=== PATIENT | male | born 1960 | race Caucasian/White ===

== ENCOUNTER 2017-07-11 08:23 | Observation (INO) | payer MEDICARE, MEDICAID ==
[2017-07-11] MEDS ORDERED: Lactated Ringers 1,000 ML IV SCH (09:30)
--- NOTE | 2017-07-11 09:33 | EDM.PDOC ---
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 Difficult to obtain review of systems secondary to physical impairment - Related Data Allergies Allergy/AdvReac Type Severity Reaction Status Date / Time No Known Allergies Allergy Verified 07/11/17 08:50 Home Meds: Home Meds Baclofen 1 tab PO TID 07/11/17 [History] Gabapentin [Neurontin] 1 cap PO BID 07/11/17 [History] PHENobarbital 6 tab PO BEDTIME 07/11/17 [History] Prednisone [IJD: predniSONE] 1 tab PO DAILY 07/11/17 [History] Propranolol [Inderal LA] 1 tab PO DAILY 07/11/17 [History] Past Medical History HEENT History: Reports: Hard of Hearing Musculoskeletal History: Reports: Other (See Below) Other Musculoskeletal History: muscle spasticity Neurological History: Reports: Other (See Below) (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) Hematologic History: Reports: Other (See Below) Other Hematologic History: mother reports "platelet disoder" - Past Surgical History GI Surgical History: Reports: Cholecystectomy Social & Family History - Tobacco Use Smoking Status *Q: Never Smoker - Recreational Drug Use Recreational Drug Use: No ED ROS GENERAL - Review of Systems Review Of Systems: Unable To Obtain ED EXAM, GENERAL - Physical Exam Exam: See Below Free Text/Narrative:: General: 56-year-old gentleman not in any distress minimally communicative, alert HEENT: head is atraumatic normocephalic, eyes pupils equal round reactive to light, sclera clear no conjunctivitis appreciated. Ears tympanic membranes clear and avila landmarks and light reflex are present bilaterally canals are clear. Nose no septal deviation, nares are clear, no blood present. Mouth mucosa is dry and pink no erythema or exudate noted in soft palate, tongue is midline uvula is midline, dentition is or. Neck: Supple no thyromegaly no tracheal deviation. Nodes: Cervical nodes subclavicular nodes nontender no palpable lymphadenopathy noted. Lungs: clear to auscultation bilaterally with symmetrical respirations, no adventitious noise appreciated. CV: Regular rate and rhythm S1 and S2 appreciated no murmurs rubs or gallops noted. Abdomen: Soft, nontender, no palpable masses or organomegaly appreciated, mild distention no guarding bowel sounds are present, . Neuro: Cranial nerves II through XII grossly intact Skin: Erythematous rash in the groin area consistent with candidiasis Extremities: No lower extremity edema appreciated, pedal pulse is +2. Course - Vital Signs Last Recorded V/S: Last Vital Signs Temp 98.7 F 07/11/17 12:04 Pulse 106 H 07/11/17 12:04 Resp 16 07/11/17 12:04 BP 129/70 07/11/17 12:04 Pulse Ox 89 L 07/11/17 12:04 - Orders/Labs/Meds Orders: Active Orders 24 hr Category Date Time Status Vital Signs [RC] Q1H Care 07/11/17 09:26 Active Vital Signs [RC] Q1H Care 07/11/17 10:41 Active Chest 1V Frontal [CR] Urgent Exams 07/11/17 09:28 Taken Chest Abdomen Pelvis w Cont [CT] Stat Exams 07/11/17 10:52 Taken CULTURE BLOOD [BC] Urgent Lab 07/11/17 09:40 Received CULTURE BLOOD [BC] Urgent Lab 07/11/17 09:50 Received Lactated Ringers [Ringers, Lactated] 1,000 ml Med 07/11/17 09:30 Active IV ASDIRECTED Piperacillin/Tazobactam/Dext [Zosyn in Dextrose Iso- Med 07/11/17 11:00 Active Osmotic] 4.5 gm Premix Bag 1 bag IV Q6H Blood Culture x2 Reflex Set [OM.PC] Urgent Oth 07/11/17 09:26 Ordered Medication Orders Lactated Ringer's (Ringers, Lactated) 1,000 mls @ 999 mls/hr IV ASDIRECTED HERRERA Last Admin: 07/11/17 10:28 Dose: 999 mls/hr Piperacillin/Tazobactam/ (Dextrose 4.5 gm/ Premix) 100 mls @ 200 mls/hr IV Q6H HERRERA Last Admin: 07/11/17 11:14 Dose: 200 mls/hr Labs: Laboratory Tests 07/11/17 07/11/17 07/11/17 Range/Units 09:45 09:45 09:45 WBC 12.6 H (4.5-11.0) K/uL RBC 5.39 (4.30-5.90) M/uL Hgb 17.6 H (12.0-15.0) g/dL Hct 50.2 (40.0-54.0) % MCV 93 (80-98) fL MCH 33 H (27-31) pg MCHC 35 (32-36) % Plt Count 70 L (150-400) K/uL Neut % (Auto) 81 H (36-66) % Lymph % (Auto) 8 L (24-44) % [place] % (Auto) 8 H (2-6) % Eos % (Auto) 3 (2-4) % Baso % (Auto) 1 (0-1) % Sodium 148 (140-148) mmol/L Potassium 4.7 (3.6-5.2) mmol/L Chloride 110 H (100-108) mmol/L Carbon Dioxide 32 (21-32) mmol/L Anion Gap 10.7 (5.0-14.0) mmol/L BUN 15 (7-18) mg/dL Creatinine 0.9 (0.8-1.3) mg/dL Est Cr Clr Drug Dosing 83.69 mL/min Estimated GFR (MDRD) > 60 (>60) Glucose 85 (74-106) mg/dL Lactic Acid 2.5 H (0.4-2.0) mmol/L Calcium 8.5 (8.5-10.1) mg/dL Total Bilirubin 0.4 (0.2-1.0) mg/dL AST 39 H (15-37) U/L ALT 19 (12-78) U/L Alkaline Phosphatase 145 H (46-116) U/L C-Reactive Protein 0.90 H (0.0-0.3) mg/dL Total Protein 7.6 (6.4-8.2) g/dL Albumin 3.4 (3.4-5.0) g/dL Globulin 4.2 H (2.3-3.5) g/dL Albumin/Globulin Ratio 0.8 L (1.2-2.2) Urine Color Urine Appearance Urine pH (4.5-8.0) Ur Specific [place] (1.008-1.030) Urine Protein (NEGATIVE) mg/dL Urine Glucose (UA) (NEGATIVE) mg/dL Urine Ketones (NEGATIVE) mg/dL Urine Occult Blood (NEGATIVE) Urine Nitrite (NEGAITVE) Urine Bilirubin (NEGATIVE) Urine Urobilinogen (NORMAL) mg/dL Ur Leukocyte Esterase (NEGATIVE) Urine RBC (0-5) Urine WBC (0-5) Ur Epithelial Cells Amorphous Sediment Urine Bacteria Urine Mucus 07/11/17 Range/Units 10:43 WBC (4.5-11.0) K/uL RBC (4.30-5.90) M/uL Hgb (12.0-15.0) g/dL Hct (40.0-54.0) % MCV (80-98) fL MCH (27-31) pg MCHC (32-36) % Plt Count (150-400) K/uL Neut % (Auto) (36-66) % Lymph % (Auto) (24-44) % [place] % (Auto) (2-6) % Eos % (Auto) (2-4) % Baso % (Auto) (0-1) % Sodium (140-148) mmol/L Potassium (3.6-5.2) mmol/L Chloride (100-108) mmol/L Carbon Dioxide (21-32) mmol/L Anion Gap (5.0-14.0) mmol/L BUN (7-18) mg/dL Creatinine (0.8-1.3) mg/dL Est Cr Clr Drug Dosing mL/min Estimated GFR (MDRD) (>60) Glucose (74-106) mg/dL Lactic Acid (0.4-2.0) mmol/L Calcium (8.5-10.1) mg/dL Total Bilirubin (0.2-1.0) mg/dL AST (15-37) U/L ALT (12-78) U/L Alkaline Phosphatase (46-116) U/L C-Reactive Protein (0.0-0.3) mg/dL Total Protein (6.4-8.2) g/dL Albumin (3.4-5.0) g/dL Globulin (2.3-3.5) g/dL Albumin/Globulin Ratio (1.2-2.2) Urine Color Yellow Urine Appearance Clear Urine pH 5.0 (4.5-8.0) Ur Specific [place] 1.025 (1.008-1.030) Urine Protein Negative (NEGATIVE) mg/dL Urine Glucose (UA) Normal (NEGATIVE) mg/dL Urine Ketones Negative (NEGATIVE) mg/dL Urine Occult Blood Negative (NEGATIVE) Urine Nitrite Negative (NEGAITVE) Urine Bilirubin Small (NEGATIVE) Urine Urobilinogen 1 (NORMAL) mg/dL Ur Leukocyte Esterase Negative (NEGATIVE) Urine RBC 0-5 (0-5) Urine WBC 0-5 (0-5) Ur Epithelial Cells Few Amorphous Sediment Not seen Urine Bacteria Few Urine Mucus Few Meds: Medications Generic Name Dose Route Start Last Admin Trade Name Freq PRN Reason Stop Dose Admin Lactated Ringer's 1,000 mls @ 999 mls/hr 07/11/17 09:30 07/11/17 10:28 Ringers, Lactated IV 999 mls/hr ASDIRECTED HERRERA Administration Piperacillin/Tazobactam/ 100 mls @ 200 mls/hr 07/11/17 11:00 07/11/17 11:14 Dextrose 4.5 gm/ Premix IV 200 mls/hr Q6H HERRERA Administration Discontinued Medications Generic Name Dose Route Start Last Admin Trade Name Freq PRN Reason Stop Dose Admin Sodium Chloride 70 mls @ 3 mls/sec 07/11/17 11:20 07/11/17 11:52 Normal Saline IV 07/11/17 11:21 3 mls/sec ASDIRECTED ONE Administration Iopamidol 126 ml 07/11/17 11:20 07/11/17 11:51 Isovue-300 (61%) IV 07/11/17 11:21 126 ml . DIRECTED PRN Administration RADIOLOGY EXAM Nystatin 1 gm 07/11/17 10:43 07/11/17 11:03 Nystatin Ointment TOP 07/11/17 10:44 1 dose NOW STA Administration Sodium Chloride 10 ml 07/11/17 11:20 07/11/17 11:52 Saline Flush FLUSH 07/11/17 11:21 10 ml . DIRECTED PRN Administration [id number] EXAM Departure - Departure Time of Disposition: 12:57 Disposition: Admitted As Inpatient 67 Condition: Good Clinical Impression: Dehydration Constipation Qualifiers: Constipation type: slow transit constipation Qualified Code(s): K59.01 - Slow transit constipation - Discharge Information Forms: ED Department Discharge - My Orders Last 24 Hours: My Active Orders 07/11/17 09:26 Vital Signs [RC] Q1H Blood Culture x2 Reflex Set [OM.PC] Urgent 07/11/17 09:28 Chest 1V Frontal [CR] Urgent 07/11/17 09:30 Lactated Ringers [Ringers, Lactated] 1,000 ml IV ASDIRECTED 07/11/17 09:40 CULTURE BLOOD [BC] Urgent 07/11/17 09:50 CULTURE BLOOD [BC] Urgent 07/11/17 10:41 Vital Signs [RC] Q1H 07/11/17 10:52 Chest Abdomen Pelvis w Cont [CT] Stat 07/11/17 11:00 Piperacillin/Tazobactam/Dext [Zosyn in Dextrose Iso-Osmotic] 4.5 gm Premix Bag 1 bag IV Q6H - Assessment/Plan Last 24 Hours: My Active Orders 07/11/17 09:26 Vital Signs [RC] Q1H Blood Culture x2 Reflex Set [OM.PC] Urgent 07/11/17 09:28 Chest 1V Frontal [CR] Urgent 07/11/17 09:30 Lactated Ringers [Ringers, Lactated] 1,000 ml IV ASDIRECTED 07/11/17 09:40 CULTURE BLOOD [BC] Urgent 07/11/17 09:50 CULTURE BLOOD [BC] Urgent 07/11/17 10:41 Vital Signs [RC] Q1H 07/11/17 10:52 Chest Abdomen Pelvis w Cont [CT] Stat 07/11/17 11:00 Piperacillin/Tazobactam/Dext [Zosyn in Dextrose Iso-Osmotic] 4.5 gm Premix Bag 1 bag IV Q6H Plan: Assessment Acuity = acute Site and laterality = functional constipation with intravascular volume depletion tinea corporis complicated patient with idiopathic progressive degenerative cerebellar disease Etiology = slow transit time Manifestations = none Location of injury = Home Lab values = WBC elevated 12.6 consistent leukocytosis, lactic acid elevated 2.5 consistent lactic acidosis probably related to dehydration specific gravity 1.025 on urinalysis consistent with dehydration CT scan shows no acute process other than small 3 mm pulmonary nodules on the right side Plan Called discussed case with hospitalist diamond powder mixer he agreed to come and evaluate the patient emergency department for admission and further evaluation Patient was in agreement with the plan all questions were answered, they were instructed to return to the emergency department or call for worsening symptoms. This note was dictated using [employer] voice recognition software please call with any questions.
[2017-07-11] MEDS ORDERED: Nystatin Ointment 15 GM Tube TOP STA (10:43)
[2017-07-11] MEDS ORDERED: Piperacillin/Tazobactam 4.5 GM in Sodium Chloride 0.9% 100 ML IV SCH (10:45)
[2017-07-11] MEDS ORDERED: Piperacillin/Tazobactam/Dext 4.5 GM in Premix Bag 1 BAG IV SCH (11:00)
[2017-07-11] MEDS ORDERED: Sodium Chloride 0.9% 10 ML Syringe FLUSH PRN ×2 (11:20→14:06)
[2017-07-11] MEDS ORDERED: Iopamidol 612 MG/ML 150 ML Bottle IV PRN (11:20)
--- NOTE | 2017-07-11 13:48 | PCM.HP ---
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 Guy is a 56-year-old gentleman with a known history of idiopathic cerebral and cerebellar degenerative disorder with ataxic movement and paresthesias. Is cared for at home by his parents, has had progressive decline in his physical abilities. He is unable to move himself or be able to communicate verbally. He requires assistance in all aspects of daily living even to the point that they need to feed him as he is unable to coordinate movements with eating utensils. Family had noted that he was experiencing abdominal pain last night and again this morning so he was brought in for evaluation in the emergency department. He has been afebrile and hemodynamically stable while in the emergency department. White blood cell count is mildly elevated and his lactic acid level is mildly elevated. Laboratory studies were otherwise unremarkable, CT scan of the chest abdomen and pelvis shows no obvious source of infection. - Related Data Allergies/Adverse Reactions: Allergies Allergy/AdvReac Type Severity Reaction Status Date / Time No Known Allergies Allergy Verified 07/11/17 08:50 Home Medications: Home Meds Baclofen 1 tab PO TID 07/11/17 [History] Gabapentin [Neurontin] 1 cap PO BID 07/11/17 [History] PHENobarbital 6 tab PO BEDTIME 07/11/17 [History] Prednisone [IJD: predniSONE] 1 tab PO DAILY 07/11/17 [History] Propranolol [Inderal LA] 1 tab PO DAILY 07/11/17 [History] Past Medical History HEENT History: Reports: Hard of Hearing Musculoskeletal History: Reports: Other (See Below) Other Musculoskeletal History: muscle spasticity Neurological History: Reports: Other (See Below) (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) Other Neuro History: idiopathic progressive cerebral and cerebellar degeneration with atoxic movement disorder, parasthesias Hematologic History: Reports: Other (See Below) Other Hematologic History: mother reports "platelet disoder" - Past Surgical History GI Surgical History: Reports: Cholecystectomy Social & Family History - Tobacco Use Smoking Status *Q: Never Smoker - Recreational Drug Use Recreational Drug Use: No H&P Review of Systems - Review of Systems: Review Of Systems: Unable To Obtain General: Reports: ROS unobtainable (Patient is unable to communicate) Exam - Exam Exam: See Below - Vital Signs Vital Signs: Last Vital Signs Temp 98.7 F 07/11/17 12:04 Pulse 106 H 07/11/17 12:04 Resp 16 07/11/17 12:04 BP 129/70 07/11/17 12:04 Pulse Ox 89 L 07/11/17 12:04 Weight: 185 lb - Exam Quality Assessment: Urinary Catheter, DVT Prophylaxis General: Alert, Cooperative HEENT: Conjunctiva Clear, Normal Nasal Septum, Posterior Pharynx Clear, Pupils Equal. No: Hearing Intact, Mucosa Moist & [place] Neck: Supple, Trachea Midline, +2 Carotid Pulse wo Bruit Lungs: Clear to Auscultation, Normal Respiratory Effort Cardiovascular: Regular Rate, Regular Rhythm, Normal S1, Normal S2. No: Irregular Rhythm, Bradycardia, Tachycardia, Systolic Murmur, Diastolic Murmur GI/Abdominal Exam: Normal Bowel Sounds, Soft, Non-Tender, No Distention Extremities: Normal Inspection, No Pedal Edema Skin: Warm, Dry, Intact Neurological: Other (Unable to adequately test because of significant spasticity and inability to communicate) - Patient Data Lab Results Last 24 hrs: Laboratory Results - last 24 hr 07/11/17 07/11/17 07/11/17 Range/Units 09:45 09:45 09:45 WBC 12.6 H (4.5-11.0) K/uL RBC 5.39 (4.30-5.90) M/uL Hgb 17.6 H (12.0-15.0) g/dL Hct 50.2 (40.0-54.0) % MCV 93 (80-98) fL MCH 33 H (27-31) pg MCHC 35 (32-36) % Plt Count 70 L (150-400) K/uL Neut % (Auto) 81 H (36-66) % Lymph % (Auto) 8 L (24-44) % [place] % (Auto) 8 H (2-6) % Eos % (Auto) 3 (2-4) % Baso % (Auto) 1 (0-1) % Sodium 148 (140-148) mmol/L Potassium 4.7 (3.6-5.2) mmol/L Chloride 110 H (100-108) mmol/L Carbon Dioxide 32 (21-32) mmol/L Anion Gap 10.7 (5.0-14.0) mmol/L BUN 15 (7-18) mg/dL Creatinine 0.9 (0.8-1.3) mg/dL Est Cr Clr Drug Dosing 83.69 mL/min Estimated GFR (MDRD) > 60 (>60) Glucose 85 (74-106) mg/dL Lactic Acid 2.5 H (0.4-2.0) mmol/L Calcium 8.5 (8.5-10.1) mg/dL Total Bilirubin 0.4 (0.2-1.0) mg/dL AST 39 H (15-37) U/L ALT 19 (12-78) U/L Alkaline Phosphatase 145 H (46-116) U/L C-Reactive Protein 0.90 H (0.0-0.3) mg/dL Total Protein 7.6 (6.4-8.2) g/dL Albumin 3.4 (3.4-5.0) g/dL Globulin 4.2 H (2.3-3.5) g/dL Albumin/Globulin Ratio 0.8 L (1.2-2.2) Urine Color Urine Appearance Urine pH (4.5-8.0) Ur Specific [place] (1.008-1.030) Urine Protein (NEGATIVE) mg/dL Urine Glucose (UA) (NEGATIVE) mg/dL Urine Ketones (NEGATIVE) mg/dL Urine Occult Blood (NEGATIVE) Urine Nitrite (NEGAITVE) Urine Bilirubin (NEGATIVE) Urine Urobilinogen (NORMAL) mg/dL Ur Leukocyte Esterase (NEGATIVE) Urine RBC (0-5) Urine WBC (0-5) Ur Epithelial Cells Amorphous Sediment Urine Bacteria Urine Mucus 07/11/17 Range/Units 10:43 WBC (4.5-11.0) K/uL RBC (4.30-5.90) M/uL Hgb (12.0-15.0) g/dL Hct (40.0-54.0) % MCV (80-98) fL MCH (27-31) pg MCHC (32-36) % Plt Count (150-400) K/uL Neut % (Auto) (36-66) % Lymph % (Auto) (24-44) % [place] % (Auto) (2-6) % Eos % (Auto) (2-4) % Baso % (Auto) (0-1) % Sodium (140-148) mmol/L Potassium (3.6-5.2) mmol/L Chloride (100-108) mmol/L Carbon Dioxide (21-32) mmol/L Anion Gap (5.0-14.0) mmol/L BUN (7-18) mg/dL Creatinine (0.8-1.3) mg/dL Est Cr Clr Drug Dosing mL/min Estimated GFR (MDRD) (>60) Glucose (74-106) mg/dL Lactic Acid (0.4-2.0) mmol/L Calcium (8.5-10.1) mg/dL Total Bilirubin (0.2-1.0) mg/dL AST (15-37) U/L ALT (12-78) U/L Alkaline Phosphatase (46-116) U/L C-Reactive Protein (0.0-0.3) mg/dL Total Protein (6.4-8.2) g/dL Albumin (3.4-5.0) g/dL Globulin (2.3-3.5) g/dL Albumin/Globulin Ratio (1.2-2.2) Urine Color Yellow Urine Appearance Clear Urine pH 5.0 (4.5-8.0) Ur Specific [place] 1.025 (1.008-1.030) Urine Protein Negative (NEGATIVE) mg/dL Urine Glucose (UA) Normal (NEGATIVE) mg/dL Urine Ketones Negative (NEGATIVE) mg/dL Urine Occult Blood Negative (NEGATIVE) Urine Nitrite Negative (NEGAITVE) Urine Bilirubin Small (NEGATIVE) Urine Urobilinogen 1 (NORMAL) mg/dL Ur Leukocyte Esterase Negative (NEGATIVE) Urine RBC 0-5 (0-5) Urine WBC 0-5 (0-5) Ur Epithelial Cells Few Amorphous Sediment Not seen Urine Bacteria Few Urine Mucus Few Result Diagrams: 07/11/17 09:45 07/11/17 09:45 *Q Meaningful Use (ADM) - VTE *Q VTE Criteria *Q: VTE Pharmacological Contraindications *Q: Thrombocytopenia - VTE Risk Assess *Q Each Risk Factor Represents 1 Point: Age 41 - 59 years Total Score 1 Point Risk Factors: 1 Each Risk Factor Represents 2 Points: None Total Score 2 Point Risk Factors: 0 Each Risk Factor Represents 3 Points: None Total Score 3 Point Risk Factors: 0 Each Risk Factor Represents 5 Points: None Total Score 5 Point Risk Factors: 0 Venous Thromboembolism Risk Factor Score *Q: 1 - Stroke *Q Stroke Criteria *Q: - AMI *Q AMI Criteria *Q: Problem List Initiated/Reviewed/Updated: Yes Orders Last 24hrs: Active Orders 24 hr Category Date Time Status Patient Status Manage Transfer [TRANSFER] Routine ADT 07/11/17 13:33 Ordered Vital Signs [RC] Q1H Care 07/11/17 09:26 Active Vital Signs [RC] Q1H Care 07/11/17 10:41 Active Chest 1V Frontal [CR] Urgent Exams 07/11/17 09:28 Taken Chest Abdomen Pelvis w Cont [CT] Stat Exams 07/11/17 10:52 Taken CULTURE BLOOD [BC] Urgent Lab 07/11/17 09:40 Received CULTURE BLOOD [BC] Urgent Lab 07/11/17 09:50 Received Lactated Ringers [Ringers, Lactated] 1,000 ml Med 07/11/17 09:30 Active IV ASDIRECTED Piperacillin/Tazobactam/Dext [Zosyn in Dextrose Iso- Med 07/11/17 11:00 Active Osmotic] 4.5 gm Premix Bag 1 bag IV Q6H Blood Culture x2 Reflex Set [OM.PC] Urgent Oth 07/11/17 09:26 Ordered Resuscitation Status Routine Resus Stat 07/11/17 13:35 Ordered Medication Orders Lactated Ringer's (Ringers, Lactated) 1,000 mls @ 999 mls/hr IV ASDIRECTED [facility] Last Admin: 07/11/17 10:28 Dose: 999 mls/hr Piperacillin/Tazobactam/ (Dextrose 4.5 gm/ Premix) 100 mls @ 200 mls/hr IV Q6H [facility] Last Admin: 07/11/17 11:14 Dose: 200 mls/hr Assessment/Plan Comment:: ASSESSMENT AND PLAN DEHYDRATION-no evidence of underlying infection, elevated lactic acid likely secondary to contraction. We'll monitor closely for any evidence of infection over the next 24 hours of hospitalization. -IV fluids for hydration CONSTIPATION-likely cause of abdominal pain, no other specific etiology identified despite extensive evaluation. 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 and paresthesias -Continue outpatient medical regimen SEIZURE DISORDER-well controlled on current therapy -Continue outpatient therapy with phenobarbital IDIOPATHIC THROMBOCYTOPENIA-platelet count adequate at 70,000 -Continue outpatient therapy with prednisone MAINTENANCE ISSUES -DVT prophylaxis; SCUDs, not a candidate for anticoagulation because of thrombocytopenia -GI prophylaxis; Protonix 40 mg by mouth daily -Gupta catheter; placed in emergency department, will remove after he arrives on medical surgical floor -Nutrition; regular diet -Nicotinic dependence; not required CODE STATUS-FULL CODE ADMISSION STATUS-this patient will be admitted to observation status, expect no more than a one night hospital stay for evaluation and management of problems as outlined above. DISPOSITION-anticipate discharge to home after the hospital stay. PRIMARY CARE PROVIDER-Dr. Felipe
[2017-07-11] MEDS ORDERED: oxyCODONE 5 MG Tab PO PRN (14:06)
[2017-07-11] MEDS ORDERED: Magnesium Hydroxide 400 MG/5 ML Susp 30 ML Cup PO PRN (14:06)
[2017-07-11] MEDS ORDERED: Sodium Phosphate,Monobasic/Sodium Phosphate,Dibasic Enema 133 ML Bottle RECTAL PRN (14:06)
[2017-07-11] MEDS ORDERED: Docusate Sodium 100 MG Cap PO PRN (14:06)
[2017-07-11] MEDS ORDERED: Ondansetron 4 MG/2 ML SDV IV PRN (14:06)
[2017-07-11] MEDS ORDERED: Polyethylene Glycol 3350 Powder 17 GM Packet PO PRN (14:06)
[2017-07-11] MEDS ORDERED: Acetaminophen 325 MG Tab PO PRN (14:06)
[2017-07-11] MEDS ORDERED: Bisacodyl 10 MG Supp RECTAL ONE (15:00)
[2017-07-11] MEDS ORDERED: Magnesium Citrate Solution 296 ML Bottle PO ONE (15:00)
[2017-07-11] MEDS: Baclofen 10 MG Tab PO SCH ×2 (16:16→21:38)
[2017-07-11] MEDS: Nystatin Topical Powder 15 GM Bottle TOP SCH ×2 (16:17→21:39)
[2017-07-11] MEDS: Lactated Ringers 1,000 ML IV SCH (17:00)
[2017-07-11] MEDS ORDERED: LORazepam 2 MG/ML MDV IVPUSH PRN (17:17)
[2017-07-11] MEDS ORDERED: LORazepam 2 MG/ML MDV ONE (17:25)
[2017-07-11] MEDS: PHENobarbital 32.4 MG Tab PO SCH (21:39)
[2017-07-11] MEDS: Gabapentin 300 MG Cap PO SCH (21:39)
[2017-07-12] MEDS: Lactated Ringers 1,000 ML IV SCH ×2 (01:13→09:17)
[2017-07-12] MEDS: Gabapentin 300 MG Cap PO SCH ×2 (08:53→21:42)
[2017-07-12] MEDS: Baclofen 10 MG Tab PO SCH ×3 (08:53→21:42)
[2017-07-12] MEDS: Nystatin Topical Powder 15 GM Bottle TOP SCH ×4 (08:53→21:43)
[2017-07-12] MEDS: predniSONE 20 MG Tab PO SCH (08:54)
[2017-07-12] MEDS: Propranolol 60 MG Cap.ER PO SCH (08:54)
[2017-07-12] MEDS ORDERED: Sodium Chloride 0.9% 1,000 ML IV SCH (09:15)
--- NOTE | 2017-07-12 09:29 | PCM.PN ---
- General Info Date of Service: 07/12/17 Functional Status: Reports: Tolerating Diet - Review of Systems General: Denies: Fever, Chills Systems Review Comment:: Mr. Guy was admitted yesterday with dehydration and significant constipation. There was concern for possible underlying infection although none has been identified despite extensive evaluation in the emergency department. On initial evaluation lactic acid level was mildly elevated as well as white blood cell count. He became fairly agitated and had more difficulty with spasticity after admission, heart rate did increase and follow-up lactic acid level was significantly elevated at 8.9. On recheck this morning lactic acid level is within normal range but his white count has gone up to almost 18,000 and his platelet count is 13,000. 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 He has had no significant temperature elevations and since last night his white blood cell count has normalized and blood pressure has remained within desired range. He was given magnesium citrate after admission and did have a large bowel movement early this morning. - Patient Data Vitals - Most Recent: Last Vital Signs Temp 99 F 07/12/17 07:24 Pulse 97 07/12/17 07:24 Resp 20 07/12/17 07:24 BP 120/79 07/12/17 07:24 Pulse Ox 92 L 07/12/17 07:24 Weight - Most Recent: 450 lb 9.997 oz I&O - Last 24 Hours: Intake & Output 07/11/17 07/12/17 07/12/17 22:59 06:59 14:59 Intake Total 1600 Output Total 550 450 Balance -550 1150 Lab Results Last 24 Hours: Laboratory Results - last 24 hr 07/11/17 07/12/17 07/12/17 Range/Units 17:13 05:37 05:37 WBC 17.9 H (4.5-11.0) K/uL RBC 4.91 (4.30-5.90) M/uL Hgb 15.2 H D (12.0-15.0) g/dL Hct 46.5 (40.0-54.0) % MCV 95 (80-98) fL MCH 31 (27-31) pg MCHC 33 (32-36) % Plt Count 13 L* (150-400) K/uL Neut % (Auto) 84 H (36-66) % Lymph % (Auto) 5 L (24-44) % [place] % (Auto) 11 H (2-6) % Eos % (Auto) 0 L (2-4) % Baso % (Auto) 0 (0-1) % Sodium 147 (140-148) mmol/L Potassium 3.9 (3.6-5.2) mmol/L Chloride 109 H (100-108) mmol/L Carbon Dioxide 32 (21-32) mmol/L Anion Gap 9.9 (5.0-14.0) mmol/L BUN 14 (7-18) mg/dL Creatinine 0.9 (0.8-1.3) mg/dL Est Cr Clr Drug Dosing 83.69 mL/min Estimated GFR (MDRD) > 60 (>60) Glucose 114 H (74-106) mg/dL Lactic Acid 8.9 H (0.4-2.0) mmol/L Calcium 7.9 L (8.5-10.1) mg/dL // Range/Units 08:11 WBC (4.5-11.0) K/uL RBC (4.30-5.90) M/uL Hgb (12.0-15.0) g/dL Hct (40.0-54.0) % MCV (80-98) fL MCH (27-31) pg MCHC (32-36) % Plt Count (150-400) K/uL Neut % (Auto) (36-66) % Lymph % (Auto) (24-44) % [place] % (Auto) (2-6) % Eos % (Auto) (2-4) % Baso % (Auto) (0-1) % Sodium (140-148) mmol/L Potassium (3.6-5.2) mmol/L Chloride (100-108) mmol/L Carbon Dioxide (21-32) mmol/L Anion Gap (5.0-14.0) mmol/L BUN (7-18) mg/dL Creatinine (0.8-1.3) mg/dL Est Cr Clr Drug Dosing mL/min Estimated GFR (MDRD) (>60) Glucose (74-106) mg/dL Lactic Acid 1.0 (0.4-2.0) mmol/L Calcium (8.5-10.1) mg/dL Med Orders - Current: Current Medications Acetaminophen (Tylenol) 650 mg PO Q4H PRN PRN Reason: Pain (Mild 1-3)/fever Baclofen (Lioresal) 10 mg PO TID [facility] [place] Last Admin: 07/12/17 08:53 Dose: 10 mg Docusate Sodium (Colace) 100 mg PO BID PRN PRN Reason: Constipation Gabapentin (Neurontin) 300 mg PO BID [facility] [place] Last Admin: 07/12/17 08:53 Dose: 300 mg Sodium Chloride (Normal Saline) 1,000 mls @ 50 mls/hr IV ASDIRECTED [facility] Lorazepam (Ativan) 0.5 mg IVPUSH Q2H PRN PRN Reason: muscle spasms/agitation Last Admin: 07/11/17 17:27 Dose: 0.5 mg Magnesium Citrate (Citrate Of Magnesia) 150 ml PO ONETIME ONE Stop: 07/12/17 09:17 Magnesium Hydroxide (Milk Of Magnesia) 30 ml PO Q12H PRN PRN Reason: Constipation Nystatin (Nystop) 0 gm TOP QID [facility] [place] Last Admin: 07/12/17 08:53 Dose: 1 applic Ondansetron HCl (Zofran) 4 mg IV Q4H PRN PRN Reason: Nausea/Vomiting Oxycodone HCl (Oxycodone) 5 mg PO Q4H PRN PRN Reason: Pain (moderate 4-6) Phenobarbital (Phenobarbital) 194.4 mg PO BEDTIME [facility] [place] Last Admin: 07/11/17 21:39 Dose: 194.4 mg Polyethylene Glycol (Miralax) 17 gm PO DAILY PRN PRN Reason: Constipation Polyethylene Glycol (Miralax) 17 gm PO BID [facility] [place] Prednisone (Prednisone) 20 mg PO DAILY@0800 [facility] [place] Last Admin: 07/12/17 08:54 Dose: 20 mg Propranolol HCl (Inderal La) 60 mg PO DAILY [facility] [place] Last Admin: 07/12/17 08:54 Dose: 60 mg Sodium Biphosphate/Sodium Phosphate (Fleet Enema) 133 ml RECTAL ONETIME PRN PRN Reason: Constipation Sodium Chloride (Saline Flush) 10 ml FLUSH ASDIRECTED PRN PRN Reason: Keep Vein Open Discontinued Medications Bisacodyl (Dulcolax) 10 mg RECTAL ONETIME ONE Stop: 07/11/17 15:01 Last Admin: 07/11/17 16:17 Dose: 10 mg Lactated Ringer's (Ringers, Lactated) 1,000 mls @ 999 mls/hr IV ASDIRECTED [facility] [place] Last Admin: 07/11/17 10:28 Dose: 999 mls/hr Piperacillin/Tazobactam/ (Dextrose 4.5 gm/ Premix) 100 mls @ 200 mls/hr IV Q6H [facility] [place] Last Admin: 07/11/17 11:14 Dose: 200 mls/hr Sodium Chloride (Normal Saline) 70 mls @ 3 mls/sec IV ASDIRECTED ONE Stop: 07/11/17 11:21 Last Admin: 07/11/17 11:52 Dose: 3 mls/sec Lactated Ringer's (Ringers, Lactated) 1,000 mls @ 125 mls/hr IV ASDIRECTED [facility] [place] Last Admin: 07/12/17 09:17 Dose: 125 mls/hr Iopamidol (Isovue-300 (61%)) 126 ml IV . DIRECTED PRN PRN Reason: RADIOLOGY EXAM Stop: 07/11/17 11:21 Last Admin: 07/11/17 11:51 Dose: 126 ml Lorazepam (Ativan) Confirm Administered Dose 2 mg .ROUTE .STK-MED ONE Stop: 07/11/17 17:26 Last Admin: 07/11/17 18:24 Dose: Not Given Magnesium Citrate (Citrate Of Magnesia) 296 ml PO ONETIME ONE Stop: 07/11/17 15:01 Last Admin: 07/11/17 16:17 Dose: 296 ml Nystatin (Nystatin Ointment) 1 gm TOP NOW STA Stop: 07/11/17 10:44 Last Admin: 07/11/17 11:03 Dose: 1 dose Sodium Chloride (Saline Flush) 10 ml FLUSH . DIRECTED PRN PRN Reason: [id number] EXAM Stop: 07/11/17 11:21 Last Admin: 07/11/17 11:52 Dose: 10 ml - Exam Quality Assessment: Supplemental Oxygen, DVT Prophylaxis General: Alert, Cooperative, No Acute Distress Lungs: Clear to Auscultation, Normal Respiratory Effort Cardiovascular: Regular Rate, Regular Rhythm, No Murmurs GI/Abdominal Exam: Normal Bowel Sounds, Soft, Non-Tender, No Distention Extremities: No Pedal Edema Skin: Other (Intertriginous yeast infection of the groin appears to be improving with current management, no evidence of underlying cellulitis.) - Problem List Review Problem List Initiated/Reviewed/Updated: Yes - My Orders Last 24 Hours: My Active Orders 07/11/17 13:35 Resuscitation Status Routine 07/11/17 14:06 Patient Status [ADT] Routine Intake and Output [RC] QSHIFT Notify Provider Vital Signs [RC] ASDIRECTED Oxygen Therapy [RC] PRN Peripheral IV Care [RC] Q12H Remove Gupta Catheter [Urinary Catheter Removal] [RC] Per Unit Routine Up With Assistance [RC] ASDIRECTED VTE/DVT Education [RC] Per Unit Routine Vital Signs [RC] Q4H Acetaminophen [Tylenol] 650 mg PO Q4H PRN Docusate Sodium [Colace] 100 mg PO BID PRN Magnesium Hydroxide [Milk of Magnesia] 30 ml PO Q12H PRN Na Phos,M-B/Na Phos,DI-B [Fleet Enema] 133 ml RECTAL ONETIME PRN Ondansetron [Zofran] 4 mg IV Q4H PRN Polyethylene Glycol 3350 [MiraLAX] 17 gm PO DAILY PRN Sodium Chloride 0.9% [Saline Flush] 10 ml FLUSH ASDIRECTED PRN oxyCODONE 5 mg PO Q4H PRN Peripheral IV Insertion Adult [OM.PC] Routine Sequential Compression Device [OM.PC] Per Unit Routine VTE Pharmacological Contraindications [AST] Per Unit Routine 07/11/17 16:00 Nystatin [Nystop] See Dose Instructions TOP QID 07/11/17 17:17 LORazepam [Ativan] 0.5 mg IVPUSH Q2H PRN 07/11/17 Lunch Regular Diet [DIET] 07/12/17 09:15 Sodium Chloride 0.9% @ 50 MLS/HR(1000ml) Sodium Chloride 0.9% [Normal Saline] 1 ,000 ml IV ASDIRECTED 07/12/17 09:16 Magnesium Citrate [Citrate of Magnesia] 150 ml PO ONETIME ONE 07/12/17 09:30 Polyethylene Glycol 3350 [MiraLAX] 17 gm PO BID 07/13/17 05:00 BASIC METABOLIC PANEL,BMP [CHEM] Timed CBC WITH AUTO DIFF [HEME] Timed - Plan Plan:: ASSESSMENT AND PLAN DEHYDRATION-improved since admission, elevated lactic acid last night and heart rate likely secondary to agitation with increased spasticity. Lactic acid level has now normalized, blood cell count increased from admission. He has remained afebrile, there is no evidence of underlying infection at the present time. -Continue to hold on antibiotic therapy -Decrease IV rate to 50 mL/h CONSTIPATION-likely cause of abdominal pain, no other specific etiology identified despite extensive evaluation. 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 MAINTENANCE ISSUES -DVT prophylaxis; SCUDs, not a candidate for anticoagulation because of thrombocytopenia -GI prophylaxis; Protonix 40 mg by mouth daily -Gupta catheter; placed in emergency department, will remove after he arrives on medical surgical floor -Nutrition; regular diet -Nicotinic dependence; not required CODE STATUS-FULL CODE ADMISSION STATUS-this patient will be admitted to observation status, expect no more than a one night hospital stay for evaluation and management of problems as outlined above. DISPOSITION-anticipate discharge to home after the hospital stay. PRIMARY CARE PROVIDER-Dr. Felipe
[2017-07-12] MEDS ORDERED: Magnesium Citrate Solution 296 ML Bottle PO ONE (10:00)
[2017-07-12] MEDS: Polyethylene Glycol 3350 Powder 17 GM Packet PO SCH (10:50)
[2017-07-12] MEDS: PHENobarbital 32.4 MG Tab PO SCH (21:43)
[2017-07-13] MEDS: Nystatin Topical Powder 15 GM Bottle TOP SCH ×2 (06:35→09:04)
[2017-07-13] MEDS: predniSONE 20 MG Tab PO SCH (07:53)
--- NOTE | 2017-07-13 08:26 | CR ---
Chest 1V Frontal INDICATION: hypoxic COMPARISON: None FINDINGS: Single AP portable view. Heart size normal. Slight elevation right hemidiaphragm. No inf iltrates, pleural effusions, or signs of pulmonary edema. IMPRESSION: Nothing acute.
[2017-07-13] MEDS: Gabapentin 300 MG Cap PO SCH (09:04)
[2017-07-13] MEDS: Baclofen 10 MG Tab PO SCH (09:04)
[2017-07-13] MEDS: Propranolol 60 MG Cap.ER PO SCH (09:04)
[2017-07-13] MEDS: Polyethylene Glycol 3350 Powder 17 GM Packet PO SCH ×2 (09:04→09:09)
[2017-07-13 11:02] VITALS: BP 114/78
--- NOTE | 2017-07-13 12:53 | PCM.DCSUM1 ---
Discharge Summary - Hospital Course Brief History: 57 -year-old male with history of cerebral and cerebellar degeneration and ataxia as well as ITP who presented with weakness and lethargy. He was admitted for management of dehydration and constipation. - Discharge Data Discharge Date: 07/13/17 Discharge Disposition: Home, Self-Care 01 Condition: Fair - Discharge Diagnosis/Problem(s) (1) Constipation SNOMED Code(s): 89881767 ICD Code: K59.00 - CONSTIPATION, UNSPECIFIED Status: Acute Qualifiers: Constipation type: slow transit constipation Qualified Code(s): K59.01 - Slow transit constipation (2) Dehydration SNOMED Code(s): 79289296 ICD Code: E86.0 - DEHYDRATION Status: Acute (3) Abdominal pain SNOMED Code(s): 08687609 ICD Code: R10.9 - UNSPECIFIED ABDOMINAL PAIN Status: Acute Qualifiers: Abdominal location: generalized Qualified Code(s): R10.84 - Generalized abdominal pain - Patient Summary/Data Consults: Consultations 07/12/17 11:50 PT Evaluation and Treatment [CONS] Routine Please Evaluate and Treat. PT Reason for Consult: Other (Type Response) Pending Discharge: suggestions for safe transfers Special Instructions: Lives at home with elderly parents, difficult to transfer safely This query below is only for informational purposes and is not editable. Admission Diagnosis/Problem: Dehydration Hospital Course: Deon presented to the emergency room with weakness and lethargy. Workup in the emergency room was suggestive of dehydration as well as constipation but no evidence for infection. He had a mildly elevated lactic acid level but no evidence for sepsis. He was admitted to the hospital and started on IV fluids for hydration. He was given aggressive bowel stimulation. His lactic acid level normalized with hydration. Mental status has improved back to baseline with hydration. Bowels have started moving with aggressive bowel stimulation. His white blood cell count is trending down. He has not had any fevers. Appetite has been improving. We have been managing his intertrigo with nystatin powder. This point I believe he is safe for outpatient management. He has been hemodynamically stable and his mental status has improved significantly during the hospital stay. I do recommend Reina asked to help maintain normal bowel function. Did provide a prescription for nystatin powder to help continue to manage his yeast infection. He will continue his usual home medications. - Patient Instructions Diet: Regular Diet as Tolerated, Drink 8-10+ Glasses/Day Activity: As Tolerated Showering/Bathing: May Shower Notify Provider of: Fever, Increased Pain, Nausea and/or Vomiting Other/Special Instructions: 1. You were in the hospital for management of constipation and dehydration. Both of these have improved with the use of gentle laxatives as well as IV fluids, respectively. I do recommend that you continue to use Miralax once daily to help avoid additional difficulties with constipation. if you have difficulty with loose stools it is okay to change the dosing to every other day or every third day. The goal is for him to have a bowel movement every day. 2. Please continue your usual home medications as previously prescribed. 3. please seek medical attention if you have fever greater than 101, nausea with vomiting, or severe abdominal pain. - Discharge Plan Prescriptions/Med Rec: Nystatin [Nystop] 1 gm TP TID #60 g Polyethylene Glycol 3350 [MiraLAX] 17 gm PO DAILY #1 cont Home Medications: Home Meds Baclofen 1 tab PO TID 07/11/17 [History] Gabapentin [Neurontin] 1 cap PO BID 07/11/17 [History] PHENobarbital 6 tab PO BEDTIME 07/11/17 [History] Prednisone [IJD: predniSONE] 1 tab PO DAILY 07/11/17 [History] Propranolol [Inderal LA] 1 tab PO DAILY 07/11/17 [History] Nystatin [Nystop] 1 gm TP TID #60 g 07/13/17 [Rx] Polyethylene Glycol 3350 [MiraLAX] 17 gm PO DAILY #1 cont 07/13/17 [Rx] Patient Handouts: Constipation, Adult, Polyethylene Glycol powder Referrals: Wilmar Felipe MD [Primary Care Provider] - - Discharge Summary/Plan Comment DC Time >30 min.: No (25) - Patient Data Vitals - Most Recent: Last Vital Signs Temp 36.9 C 07/13/17 10:56 Pulse 89 07/13/17 10:56 Resp 20 07/13/17 10:56 BP 114/78 07/13/17 10:56 Pulse Ox 89 L 07/13/17 10:56 Weight - Most Recent: 204.4 kg I&O - Last 24 hours: Intake & Output 07/12/17 07/13/17 07/13/17 22:59 06:59 14:59 Intake Total 980 900 200 Output Total 400 350 Balance 580 550 200 Lab Results - Last 24 hrs: Laboratory Results - last 24 hr 07/13/17 07/13/17 Range/Units 05:30 05:35 WBC 13.9 H (4.5-11.0) K/uL RBC 4.72 (4.30-5.90) M/uL Hgb 15.2 H (12.0-15.0) g/dL Hct 45.2 (40.0-54.0) % MCV 96 (80-98) fL MCH 32 H (27-31) pg MCHC 34 (32-36) % Plt Count 28 L* (150-400) K/uL Neut % (Auto) 79 H (36-66) % Lymph % (Auto) 7 L (24-44) % [place] % (Auto) 11 H (2-6) % Eos % (Auto) 3 (2-4) % Baso % (Auto) 0 (0-1) % Sodium 143 (140-148) mmol/L Potassium 4.0 (3.6-5.2) mmol/L Chloride 106 (100-108) mmol/L Carbon Dioxide 33 H (21-32) mmol/L Anion Gap 8.0 (5.0-14.0) mmol/L BUN 16 (7-18) mg/dL Creatinine 0.8 (0.8-1.3) mg/dL Est Cr Clr Drug Dosing 93.04 mL/min Estimated GFR (MDRD) > 60 (>60) Glucose 99 (74-106) mg/dL Calcium 7.4 L (8.5-10.1) mg/dL Med Orders - Current: Current Medications Acetaminophen (Tylenol) 650 mg PO Q4H PRN PRN Reason: Pain (Mild 1-3)/fever Baclofen (Lioresal) 10 mg PO TID [facility] Last Admin: 07/13/17 09:04 Dose: 10 mg Docusate Sodium (Colace) 100 mg PO BID PRN PRN Reason: Constipation Gabapentin (Neurontin) 300 mg PO BID [facility] Last Admin: 07/13/17 09:04 Dose: 300 mg Lorazepam (Ativan) 0.5 mg IVPUSH Q2H PRN PRN Reason: muscle spasms/agitation Last Admin: 07/11/17 17:27 Dose: 0.5 mg Magnesium Hydroxide (Milk Of Magnesia) 30 ml PO Q12H PRN PRN Reason: Constipation Nystatin (Nystop) 0 gm TOP QID [facility] Last Admin: 07/13/17 09:04 Dose: 1 applic Ondansetron HCl (Zofran) 4 mg IV Q4H PRN PRN Reason: Nausea/Vomiting Oxycodone HCl (Oxycodone) 5 mg PO Q4H PRN PRN Reason: Pain (moderate 4-6) Phenobarbital (Phenobarbital) 194.4 mg PO BEDTIME [facility] Last Admin: 07/12/17 21:43 Dose: 194.4 mg Polyethylene Glycol (Miralax) 17 gm PO DAILY PRN PRN Reason: Constipation Polyethylene Glycol (Miralax) 17 gm PO BID [facility] Last Admin: 07/13/17 09:09 Dose: Not Given Prednisone (Prednisone) 20 mg PO DAILY@0800 [facility] Last Admin: 07/13/17 07:53 Dose: 20 mg Propranolol HCl (Inderal La) 60 mg PO DAILY [facility] Last Admin: 07/13/17 09:04 Dose: 60 mg Sodium Biphosphate/Sodium Phosphate (Fleet Enema) 133 ml RECTAL ONETIME PRN PRN Reason: Constipation Sodium Chloride (Saline Flush) 10 ml FLUSH ASDIRECTED PRN PRN Reason: Keep Vein Open Discontinued Medications Bisacodyl (Dulcolax) 10 mg RECTAL ONETIME ONE Stop: 07/11/17 15:01 Last Admin: 07/11/17 16:17 Dose: 10 mg Lactated Ringer's (Ringers, Lactated) 1,000 mls @ 999 mls/hr IV ASDIRECTED [facility] Last Admin: 07/11/17 10:28 Dose: 999 mls/hr Piperacillin/Tazobactam/ (Dextrose 4.5 gm/ Premix) 100 mls @ 200 mls/hr IV Q6H [facility] Last Admin: 07/11/17 11:14 Dose: 200 mls/hr Sodium Chloride (Normal Saline) 70 mls @ 3 mls/sec IV ASDIRECTED ONE Stop: 07/11/17 11:21 Last Admin: 07/11/17 11:52 Dose: 3 mls/sec Lactated Ringer's (Ringers, Lactated) 1,000 mls @ 125 mls/hr IV ASDIRECTED [facility] Last Admin: 07/12/17 09:17 Dose: 125 mls/hr Sodium Chloride (Normal Saline) 1,000 mls @ 50 mls/hr IV ASDIRECTED [facility] Last Admin: 07/12/17 10:45 Dose: 50 mls/hr Iopamidol (Isovue-300 (61%)) 126 ml IV . DIRECTED PRN PRN Reason: RADIOLOGY EXAM Stop: 07/11/17 11:21 Last Admin: 07/11/17 11:51 Dose: 126 ml Lorazepam (Ativan) Confirm Administered Dose 2 mg .ROUTE .STK-MED ONE Stop: 07/11/17 17:26 Last Admin: 07/11/17 18:24 Dose: Not Given Magnesium Citrate (Citrate Of Magnesia) 296 ml PO ONETIME ONE Stop: 07/11/17 15:01 Last Admin: 07/11/17 16:17 Dose: 296 ml Magnesium Citrate (Citrate Of Magnesia) 150 ml PO ONETIME ONE Stop: 07/12/17 10:01 Last Admin: 07/12/17 10:50 Dose: 150 ml Nystatin (Nystatin Ointment) 1 gm TOP NOW STA Stop: 07/11/17 10:44 Last Admin: 07/11/17 11:03 Dose: 1 dose Sodium Chloride (Saline Flush) 10 ml FLUSH . DIRECTED PRN PRN Reason: [id number] EXAM Stop: 07/11/17 11:21 Last Admin: 07/11/17 11:52 Dose: 10 ml *Q Meaningful Use (DIS) - VTE *Q VTE Criteria *Q: VTE Pharmacological Contraindications *Q: Thrombocytopenia - Stroke *Q Stroke Criteria *Q: - AMI *Q AMI Criteria *Q:
== END 2017-07-13 13:30 | disposition home or self-care (01) ==
LOC: JP.ED 08:23 → JP.MS 13:33
PROVIDERS: ADMIT Hospitalist; ATTEND Hospitalist
DX: K59.01 Slow transit constipation (principal); E86.0 Dehydration; R10.84 Generalized abdominal pain; Z79.899 Other long term (current) drug therapy; Z90.49 Acquired absence of other specified parts of digestive tract
CPT/HCPCS: 36415; 51702; 71010; 71260; 74177; 80048; 80053; 81001; 83605; 85025; 86140; 87040; 96361; 96365; 96375; 97162; 99284; 99285; A9270; G0378; J2060; J2543; J7030; J7040; J7050; J7120; 99217; 99220; 99225

== ENCOUNTER 2017-11-22 13:40 | Inpatient (IN) | payer MEDICARE, MEDICAID ==
[2017-11-22] MEDS ORDERED: Sodium Chloride 0.9% 10 ML Syringe FLUSH PRN (15:33)
[2017-11-22] MEDS ORDERED: Ondansetron 4 MG/2 ML SDV IVPUSH ONE (15:34)
--- NOTE | 2017-11-22 15:34 | EDM.PDOC ---
ED HPI GENERAL MEDICAL PROBLEM - General Chief Complaint: General Stated Complaint: MEDICAL Time Seen by Provider: 11/22/17 15:25 Source of Information: Reports: Patient, Assisted Records, RN Notes Reviewed History Limitations: Reports: Other (History of cerebral ataxia, progressive hyperspasticity, difficulty communicating) - History of Present Illness INITIAL COMMENTS - FREE TEXT/NARRATIVE: Shade presents today from [facility] with concern of worsening cellulitis of right lower extremity. He was initially treated with Keflex 500mg PO QID on 11/12/17. This was changed due to no improvement to Bactrim DS on 11/19/17. Patient now has fever of 102.4. - Related Data Allergies Allergy/AdvReac Type Severity Reaction Status Date / Time No Known Allergies Allergy Verified 11/22/17 14:38 Home Meds: Home Meds Baclofen 10 mg PO TID 07/11/17 [History] Gabapentin [Neurontin] 300 mg PO BID 07/11/17 [History] PHENobarbital 6 tab PO BEDTIME 07/11/17 [History] Prednisone [IJD: predniSONE] 20 mg PO DAILY 07/11/17 [History] Propranolol [Inderal LA] 60 mg PO DAILY 07/11/17 [History] Sulfamethoxazole/Trimethoprim [Bactrim Ds Tablet] 1 each PO BID 11/22/17 [ History] Past Medical History HEENT History: Reports: Hard of Hearing Musculoskeletal History: Reports: Fracture, Other (See Below) Other Musculoskeletal History: muscle spasticity, hereditary ataxia, currently fractured base first metacarpal right hand, casted Neurological History: Reports: Seizure, Other (See Below) Other Neuro History: 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 unspecified convulsions, degenerative disease of nervous system, tremor Hematologic History: Reports: Other (See Below) Other Hematologic History: mother reports "platelet disoder", ITP - Past Surgical History GI Surgical History: Reports: Cholecystectomy Social & Family History - Tobacco Use Smoking Status *Q: Never Smoker Second Hand Smoke Exposure: No - Recreational Drug Use Recreational Drug Use: No ED ROS GENERAL - Review of Systems Review Of Systems: See Below Constitutional: Reports: Fever, Chills HEENT: Reports: No Symptoms Respiratory: Denies: Shortness of Breath, Wheezing, Cough, Sputum Cardiovascular: Denies: Chest Pain, PND Endocrine: Reports: No Symptoms GI/Abdominal: Reports: Nausea, Other (Patient does suffer from chronic urine and stool incontinence). Denies: Constipation, Diarrhea : Reports: No Symptoms Musculoskeletal: Reports: Leg Pain Skin: Reports: Erythema, Other (Edema to RLE) Neurological: Reports: Pre-Existing Deficit, Tremors, Trouble Speaking Psychiatric: Reports: No Symptoms Hematologic/Lymphatic: Reports: No Symptoms Immunologic: Reports: No Symptoms ED EXAM, GENERAL - Physical Exam Exam: See Below Free Text/Narrative:: Shade presents today from [facility] for worsening right lower extremity cellulitis. US completed on RLE 11/12/17-11/14/17 was negative. Past use of Keflex and bactrim DS without improvement. Worsening fever without tachycardia or hypotension. History of Immune throbocytopenic purpura. Exam Limited By: Other (Difficulty in communicating, cererbral ataxia) General Appearance: Alert, Mild Distress Eye Exam: Bilateral Eye: PERRL Ears: Normal External Exam, Normal Canal, Normal TMs, Hearing Loss Ear Exam: Bilateral Ear: Auricle Normal, Canal Normal, TM normal Nose: Normal Inspection, Normal Mucosa, No Blood Throat/Mouth: Normal Inspection, Normal Lips, No Airway Compromise, Other ( Hoarse voice, dry mucuos membranes) Head: Atraumatic, Normocephalic Neck: Normal Inspection, Supple, Non-Tender, Full Range of Motion. No: Lymphadenopathy (R), Lymphadenopathy (L) Respiratory/Chest: No Respiratory Distress, No Accessory Muscle Use, Chest Non- Tender, Other (Bilateral breath sounds clear and decreased.) Cardiovascular: Normal Peripheral Pulses, Regular Rate, Rhythm, No Gallop, No Murmur Peripheral Pulses: 2+: Radial (L), Radial (R), Dorsalis Pedis (L), Dorsalis Pedis (R) GI/Abdominal: Normal Bowel Sounds, Soft, Non-Tender, No Distention, No Mass Back Exam: Normal Inspection, Full Range of Motion. No: CVA Tenderness (R), CVA Tenderness (L) Extremities: Normal Capillary Refill, Limited Range of Motion, Other (Pain with palpation to RLE, Bilateral lower extremity edema, Right 2+, left slightly less. Right leg erythematous, red. Skin hot to tough throughout. ) Neurological: Other (Difficult to assess due to history of cerebral ataxia. Patient is able to answer yes and no questions with some verbalization of requests which are easily understood. He needs assistance to eat, for ADLs and transfers. ) Psychiatric: Flat Affect Skin Exam: Dry, Intact, Other (Skin hot to touch with increased erythema to RLE distal to knee to foot. ) Lymphatic: No Adenopathy Course - Vital Signs Last Recorded V/S: Last Vital Signs Temp 39 C H 11/22/17 16:30 Pulse 100 11/22/17 16:30 Resp 16 11/22/17 16:30 BP 119/67 11/22/17 16:30 Pulse Ox 95 11/22/17 16:30 - Orders/Labs/Meds Orders: Active Orders 24 hr Category Date Time Status Chest 1V Frontal [CR] Stat Exams 11/22/17 15:29 Taken CULTURE BLOOD [BC] Urgent Lab 11/22/17 15:45 Received CULTURE BLOOD [BC] Urgent Lab 11/22/17 15:55 Received CULTURE URINE [RM] Stat Lab 11/22/17 16:30 Received Piperacillin/Tazobactam [Zosyn] 3.375 gm Med 11/22/17 16:45 Active Sodium Chloride 0.9% [Normal Saline] 50 ml IV Q6H Sodium Chloride 0.9% [Normal Saline] 1,000 ml Med 11/22/17 15:45 Active IV ASDIRECTED Sodium Chloride 0.9% [Saline Flush] Med 11/22/17 15:33 Active 10 ml FLUSH ASDIRECTED PRN Vancomycin 1.75 gm Med 11/22/17 17:00 Active Sodium Chloride 0.9% [Normal Saline] 250 ml IV ONETIME Blood Culture x2 Reflex Set [OM.PC] Urgent Oth 11/22/17 15:29 Ordered Saline Lock Insert [OM.PC] Routine Oth 11/22/17 15:33 Ordered Medication Orders Sodium Chloride (Normal Saline) 1,000 mls @ 250 mls/hr IV ASDIRECTED HERRERA Last Admin: 11/22/17 15:53 Dose: 250 mls/hr Piperacillin Sod/Tazobactam (Sod 3.375 gm/ Sodium Chloride) 50 mls @ 100 mls/ hr IV Q6H HERRERA Vancomycin HCl 1.75 gm/ Sodium (Chloride) 250 mls @ 150 mls/hr IV ONETIME ONE Stop: 11/22/17 18:39 Sodium Chloride (Saline Flush) 10 ml FLUSH ASDIRECTED PRN PRN Reason: Keep Vein Open Last Admin: 11/22/17 15:53 Dose: 10 ml Labs: Laboratory Tests 11/22/17 11/22/17 11/22/17 Range/Units 15:45 15:45 15:45 WBC 13.0 H (4.5-11.0) K/uL RBC 5.00 (4.30-5.90) M/uL Hgb 15.4 H (12.0-15.0) g/dL Hct 48.2 (40.0-54.0) % MCV 96 (80-98) fL MCH 31 (27-31) pg MCHC 32 (32-36) % Plt Count 21 L* (150-400) K/uL Neut % (Auto) 87 H (36-66) % Lymph % (Auto) 3 L (24-44) % [place] % (Auto) 8 H (2-6) % Eos % (Auto) 1 L (2-4) % Baso % (Auto) 1 (0-1) % Sodium 137 L (140-148) mmol/L Potassium 4.7 (3.6-5.2) mmol/L Chloride 100 (100-108) mmol/L Carbon Dioxide 31 (21-32) mmol/L Anion Gap 10.7 (5.0-14.0) mmol/L BUN 24 H (7-18) mg/dL Creatinine 1.2 (0.8-1.3) mg/dL Est Cr Clr Drug Dosing 64.26 mL/min Estimated GFR (MDRD) > 60 (>60) Glucose 122 H (74-106) mg/dL Lactic Acid 2.9 H (0.4-2.0) mmol/L Calcium 8.6 D (8.5-10.1) mg/dL Total Bilirubin 0.3 (0.2-1.0) mg/dL AST 69 H D (15-37) U/L ALT 83 H (12-78) U/L Alkaline Phosphatase 150 H (46-116) U/L C-Reactive Protein 5.00 H (0.0-0.3) mg/dL Total Protein 7.3 (6.4-8.2) g/dL Albumin 3.0 L (3.4-5.0) g/dL Globulin 4.3 H (2.3-3.5) g/dL Albumin/Globulin Ratio 0.7 L (1.2-2.2) Urine Color Urine Appearance Urine pH (4.5-8.0) Ur Specific [place] (1.008-1.030) Urine Protein (NEGATIVE) mg/dL Urine Glucose (UA) (NEGATIVE) mg/dL Urine Ketones (NEGATIVE) mg/dL Urine Occult Blood (NEGATIVE) Urine Nitrite (NEGAITVE) Urine Bilirubin (NEGATIVE) Urine Urobilinogen (NORMAL) mg/dL Ur Leukocyte Esterase (NEGATIVE) Urine RBC (0-5) Urine WBC (0-5) Ur Epithelial Cells Amorphous Sediment Urine Bacteria Urine Mucus 11/22/ Range/Units 16:32 WBC (4.5-11.0) K/uL RBC (4.30-5.90) M/uL Hgb (12.0-15.0) g/dL Hct (40.0-54.0) % MCV (80-98) fL MCH (27-31) pg MCHC (32-36) % Plt Count (150-400) K/uL Neut % (Auto) (36-66) % Lymph % (Auto) (24-44) % [place] % (Auto) (2-6) % Eos % (Auto) (2-4) % Baso % (Auto) (0-1) % Sodium (140-148) mmol/L Potassium (3.6-5.2) mmol/L Chloride (100-108) mmol/L Carbon Dioxide (21-32) mmol/L Anion Gap (5.0-14.0) mmol/L BUN (7-18) mg/dL Creatinine (0.8-1.3) mg/dL Est Cr Clr Drug Dosing mL/min Estimated GFR (MDRD) (>60) Glucose (74-106) mg/dL Lactic Acid (0.4-2.0) mmol/L Calcium (8.5-10.1) mg/dL Total Bilirubin (0.2-1.0) mg/dL AST (15-37) U/L ALT (12-78) U/L Alkaline Phosphatase (46-116) U/L C-Reactive Protein (0.0-0.3) mg/dL Total Protein (6.4-8.2) g/dL Albumin (3.4-5.0) g/dL Globulin (2.3-3.5) g/dL Albumin/Globulin Ratio (1.2-2.2) Urine Color Yellow Urine Appearance Slightly cloudy Urine pH 5.0 (4.5-8.0) Ur Specific [place] 1.020 (1.008-1.030) Urine Protein Negative (NEGATIVE) mg/dL Urine Glucose (UA) Normal (NEGATIVE) mg/dL Urine Ketones Negative (NEGATIVE) mg/dL Urine Occult Blood Moderate (NEGATIVE) Urine Nitrite Negative (NEGAITVE) Urine Bilirubin Small (NEGATIVE) Urine Urobilinogen 1 (NORMAL) mg/dL Ur Leukocyte Esterase Negative (NEGATIVE) Urine RBC 5-10 H (0-5) Urine WBC 0-5 (0-5) Ur Epithelial Cells Few Amorphous Sediment Few Urine Bacteria Moderate Urine Mucus Many Patient lab work reviewed with Dr. Otoole, he agrees to admit patient. Meds: Medications Generic Name Dose Route Start Last Admin Trade Name Freq PRN Reason Stop Dose Admin Sodium Chloride 1,000 mls @ 250 mls/hr 11/22/17 15:45 11/22/17 15:53 Normal Saline IV 250 mls/hr ASDIRECTED HERRERA Administration Piperacillin Sod/Tazobactam 50 mls @ 100 mls/hr 11/22/17 16:45 Sod 3.375 gm/ Sodium Chloride IV Q6H HERRERA Vancomycin HCl 1.75 gm/ Sodium 250 mls @ 150 mls/hr 11/22/17 17:00 Chloride IV 11/22/17 18:39 ONETIME ONE Sodium Chloride 10 ml 11/22/17 15:33 11/22/17 15:53 Saline Flush FLUSH 10 ml ASDIRECTED PRN Administration Keep Vein Open Discontinued Medications Generic Name Dose Route Start Last Admin Trade Name Freq PRN Reason Stop Dose Admin Acetaminophen 1,000 mg 11/22/17 15:58 11/22/17 16:28 Tylenol Extra Strength PO 11/22/17 15:59 1,000 mg ONETIME ONE Administration Ondansetron HCl 4 mg 11/22/17 15:34 11/22/17 16:29 Zofran IVPUSH 11/22/17 15:35 4 mg ONETIME ONE Administration - Radiology Interpretation Free Text/Narrative:: Chest x-ray reviewed, wet read. No significant changes since last chest x-ray in June,. - Re-Assessments/Exams Free Text/Narrative Re-Assessment/Exam: 11/22/17 16:36 Patient status, lab work and chest x-ray discussed with Dr. Otoole. Patient will be admitted for further care. Shade notified of findings, he is in agreement with admission. Noted with laying on stretcher, RLE less red, however continues to be hot to touch. Departure - Departure Time of Disposition: 16:37 Disposition: Admitted As Inpatient 67 Condition: Poor Clinical Impression: Cellulitis of right leg, Sepsis affecting skin - Discharge Information Referrals: Wilmar Felipe MD [Primary Care Provider] - Forms: ED Department Discharge - My Orders Last 24 Hours: My Active Orders 11/22/17 15:29 Chest 1V Frontal [CR] Stat Blood Culture x2 Reflex Set [OM.PC] Urgent 11/22/17 15:33 Sodium Chloride 0.9% [Saline Flush] 10 ml FLUSH ASDIRECTED PRN Saline Lock Insert [OM.PC] Routine 11/22/17 15:45 CULTURE BLOOD [BC] Urgent Sodium Chloride 0.9% [Normal Saline] 1,000 ml IV ASDIRECTED 11/22/17 15:55 CULTURE BLOOD [BC] Urgent 11/22/17 16:30 CULTURE URINE [RM] Stat - Assessment/Plan Last 24 Hours: My Active Orders 11/22/17 15:29 Chest 1V Frontal [CR] Stat Blood Culture x2 Reflex Set [OM.PC] Urgent 11/22/17 15:33 Sodium Chloride 0.9% [Saline Flush] 10 ml FLUSH ASDIRECTED PRN Saline Lock Insert [OM.PC] Routine 11/22/17 15:45 CULTURE BLOOD [BC] Urgent Sodium Chloride 0.9% [Normal Saline] 1,000 ml IV ASDIRECTED 11/22/17 15:55 CULTURE BLOOD [BC] Urgent 11/22/17 16:30 CULTURE URINE [RM] Stat Assessment:: Sepsis affecting skin Cellulitis right leg Patient to be admitted inpatient per Dr. Otoole. Plan: Inpatient admission per Dr. Otoole.
[2017-11-22] MEDS ORDERED: Sodium Chloride 0.9% 1,000 ML IV SCH ×2 (15:45→17:00)
[2017-11-22] MEDS ORDERED: Acetaminophen 500 MG Tab PO ONE (15:58)
[2017-11-22] MEDS: Piperacillin/Tazobactam 3.375 GM in Sodium Chloride 0.9% 50 ML IV SCH ×2 (17:05→22:35)
--- NOTE | 2017-11-22 17:15 | PCM.HP ---
H&P History of Present Illness - General Date of Service: 11/22/17 Admit Problem/Dx: Admission Diagnosis/Problem Admission Diagnosis/Problem Cellulitis of leg Source of Information: Shelter Records, Provider. No: Patient History Limitations: Reports: Other (ataxia, minimal ability to speak) - History of Present Illness Initial Comments - Free Text/Narative: Deon [facility] with fever and swelling and warmth of the right leg. He is unable to provide any history at this time and history is gathered from [facility] notes and emergency room personnel. He was diagnosed with cellulitis of the right leg in the middle of October and treated initially with cephalexin and then changed to Bactrim after his leg did not appear to be improving. There is no evidence for DVT at that time. Over the past couple of days he's had progressive swelling and increased warmth of the right leg. He had a fever today and was sent for evaluation. When asked if he has pain he does lift and wiggle his right leg. He does not respond to any of the other questions. He has a cast on his right hand from a metacarpal fracture. Workup in the emergency room was suggestive of cellulitis with sepsis including tachycardia and elevated lactic acid level. Cultures have been obtained, he is receiving IV fluids and will receive IV antibiotics. He will be admitted to the intensive care unit for further management. - Related Data Allergies/Adverse Reactions: Allergies Allergy/AdvReac Type Severity Reaction Status Date / Time No Known Allergies Allergy Verified 11/22/17 14:38 Home Medications: Home Meds Baclofen 10 mg PO TID 07/11/17 [History] Gabapentin [Neurontin] 300 mg PO BID 07/11/17 [History] PHENobarbital 6 tab PO BEDTIME 07/11/17 [History] Prednisone [IJD: predniSONE] 20 mg PO DAILY 07/11/17 [History] Propranolol [Inderal LA] 60 mg PO DAILY 07/11/17 [History] Sulfamethoxazole/Trimethoprim [Bactrim Ds Tablet] 1 each PO BID 11/22/17 [ History] Past Medical History HEENT History: Reports: Hard of Hearing Musculoskeletal History: Reports: Fracture, Other (See Below) Other Musculoskeletal History: muscle spasticity, hereditary ataxia, currently fractured base first metacarpal right hand, casted Neurological History: Reports: Seizure, Other (See Below) Other Neuro History: 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 unspecified convulsions, degenerative disease of nervous system, tremor Hematologic History: Reports: Other (See Below) Other Hematologic History: mother reports "platelet disoder", ITP - Past Surgical History GI Surgical History: Reports: Cholecystectomy Social & Family History - Family History Cardiac: Reports: Heart Failure (mother) - Tobacco Use Smoking Status *Q: Never Smoker Second Hand Smoke Exposure: No - Alcohol Use Alcohol Use History: No - Recreational Drug Use Recreational Drug Use: No H&P Review of Systems - Review of Systems: Review Of Systems: Unable To Obtain (patient is unable to cooperate with review of systems at this time) Exam - Exam Exam: See Below - Vital Signs Vital Signs: Last Vital Signs Temp 39 C H 11/22/17 16:30 Pulse 100 11/22/17 16:30 Resp 16 11/22/17 16:30 BP 119/67 11/22/17 16:30 Pulse Ox 95 11/22/17 16:30 Weight: 89.358 kg - Exam Quality Assessment: No: Supplemental Oxygen General: Alert, Lethargic. No: Oriented, Cooperative, Mild Distress HEENT: Conjunctiva Clear. No: Mucosa Moist & [place] (dry), Scleral Icterus Neck: Supple, Trachea Midline. No: Lymphadenopathy Lungs: Clear to Auscultation, Normal Respiratory Effort Cardiovascular: Regular Rhythm, Tachycardia GI/Abdominal Exam: Normal Bowel Sounds, Soft, Non-Tender, No Distention Extremities: Pedal Edema (right lower leg and calf are edematous), Increased Warmth (right anterior and lateral lower leg are very warm to touch) Skin: Warm, Dry, Rash (band of erythema 1 x 4 cm right anterior martinez, midportion ), Ecchymosis (left forearm and left martinez). No: [place] Neuro Extensive - Mental Status: Alert, Slow Response to Commands. No: Oriented x3 Neuro Extensive - Motor, Sensory, Reflexes: Dysarthria, Abnormal Motor. No: CN II-XII Intact (unable to assess), Tremor Psychiatric: Alert, Anxious - Patient Data Lab Results Last 24 hrs: Laboratory Results - last 24 hr 11/22/17 11/22/17 11/22/17 Range/Units 15:45 15:45 15:45 WBC 13.0 H (4.5-11.0) K/uL RBC 5.00 (4.30-5.90) M/uL Hgb 15.4 H (12.0-15.0) g/dL Hct 48.2 (40.0-54.0) % MCV 96 (80-98) fL MCH 31 (27-31) pg MCHC 32 (32-36) % Plt Count 21 L* (150-400) K/uL Neut % (Auto) 87 H (36-66) % Lymph % (Auto) 3 L (24-44) % [place] % (Auto) 8 H (2-6) % Eos % (Auto) 1 L (2-4) % Baso % (Auto) 1 (0-1) % Sodium 137 L (140-148) mmol/L Potassium 4.7 (3.6-5.2) mmol/L Chloride 100 (100-108) mmol/L Carbon Dioxide 31 (21-32) mmol/L Anion Gap 10.7 (5.0-14.0) mmol/L BUN 24 H (7-18) mg/dL Creatinine 1.2 (0.8-1.3) mg/dL Est Cr Clr Drug Dosing 64.26 mL/min Estimated GFR (MDRD) > 60 (>60) Glucose 122 H (74-106) mg/dL Lactic Acid 2.9 H (0.4-2.0) mmol/L Calcium 8.6 D (8.5-10.1) mg/dL Total Bilirubin 0.3 (0.2-1.0) mg/dL AST 69 H D (15-37) U/L ALT 83 H (12-78) U/L Alkaline Phosphatase 150 H (46-116) U/L C-Reactive Protein 5.00 H (0.0-0.3) mg/dL Total Protein 7.3 (6.4-8.2) g/dL Albumin 3.0 L (3.4-5.0) g/dL Globulin 4.3 H (2.3-3.5) g/dL Albumin/Globulin Ratio 0.7 L (1.2-2.2) Urine Color Urine Appearance Urine pH (4.5-8.0) Ur Specific [place] (1.008-1.030) Urine Protein (NEGATIVE) mg/dL Urine Glucose (UA) (NEGATIVE) mg/dL Urine Ketones (NEGATIVE) mg/dL Urine Occult Blood (NEGATIVE) Urine Nitrite (NEGAITVE) Urine Bilirubin (NEGATIVE) Urine Urobilinogen (NORMAL) mg/dL Ur Leukocyte Esterase (NEGATIVE) Urine RBC (0-5) Urine WBC (0-5) Ur Epithelial Cells Amorphous Sediment Urine Bacteria Urine Mucus 11/22/17 Range/Units 16:32 WBC (4.5-11.0) K/uL RBC (4.30-5.90) M/uL Hgb (12.0-15.0) g/dL Hct (40.0-54.0) % MCV (80-98) fL MCH (27-31) pg MCHC (32-36) % Plt Count (150-400) K/uL Neut % (Auto) (36-66) % Lymph % (Auto) (24-44) % [place] % (Auto) (2-6) % Eos % (Auto) (2-4) % Baso % (Auto) (0-1) % Sodium (140-148) mmol/L Potassium (3.6-5.2) mmol/L Chloride (100-108) mmol/L Carbon Dioxide (21-32) mmol/L Anion Gap (5.0-14.0) mmol/L BUN (7-18) mg/dL Creatinine (0.8-1.3) mg/dL Est Cr Clr Drug Dosing mL/min Estimated GFR (MDRD) (>60) Glucose (74-106) mg/dL Lactic Acid (0.4-2.0) mmol/L Calcium (8.5-10.1) mg/dL Total Bilirubin (0.2-1.0) mg/dL AST (15-37) U/L ALT (12-78) U/L Alkaline Phosphatase (46-116) U/L C-Reactive Protein (0.0-0.3) mg/dL Total Protein (6.4-8.2) g/dL Albumin (3.4-5.0) g/dL Globulin (2.3-3.5) g/dL Albumin/Globulin Ratio (1.2-2.2) Urine Color Yellow Urine Appearance Slightly cloudy Urine pH 5.0 (4.5-8.0) Ur Specific [place] 1.020 (1.008-1.030) Urine Protein Negative (NEGATIVE) mg/dL Urine Glucose (UA) Normal (NEGATIVE) mg/dL Urine Ketones Negative (NEGATIVE) mg/dL Urine Occult Blood Moderate (NEGATIVE) Urine Nitrite Negative (NEGAITVE) Urine Bilirubin Small (NEGATIVE) Urine Urobilinogen 1 (NORMAL) mg/dL Ur Leukocyte Esterase Negative (NEGATIVE) Urine RBC 5-10 H (0-5) Urine WBC 0-5 (0-5) Ur Epithelial Cells Few Amorphous Sediment Few Urine Bacteria Moderate Urine Mucus Many Result Diagrams: 11/22/17 15:45 11/22/17 15:45 Imaging Impressions Last 24 hrs: chest x-ray - images personally reviewed - no obvious mass, infiltrate or effusion. He has an elevated right hemidiaphragm. Heart size appears enlarged mildly. No significant change from most recent chest x-ray *Q Meaningful Use (ADM) - VTE *Q VTE Criteria *Q: VTE Pharmacological Contraindications *Q: Thrombocytopenia - VTE Risk Assess *Q Each Risk Factor Represents 1 Point: Age 41 - 59 years, Swollen Legs, Current, Obesity ( BMI > 25 kg/m2) Total Score 1 Point Risk Factors: 3 Each Risk Factor Represents 2 Points: Immobilizing plaster cast less than 1 month Total Score 2 Point Risk Factors: 2 Each Risk Factor Represents 3 Points: None Total Score 3 Point Risk Factors: 0 Each Risk Factor Represents 5 Points: None Total Score 5 Point Risk Factors: 0 Venous Thromboembolism Risk Factor Score *Q: 5 - Stroke *Q Stroke Criteria *Q: - AMI *Q AMI Criteria *Q: - Problem List (1) Cellulitis of right leg SNOMED Code(s): 543737979 ICD Code: L03.115 - CELLULITIS OF RIGHT LOWER LIMB Status: Acute Current Visit: Yes (2) Sepsis SNOMED Code(s): 64975611 ICD Code: A41.9 - SEPSIS, UNSPECIFIED ORGANISM Status: Acute Current Visit: Yes Qualifiers: Sepsis type: sepsis due to unspecified organism Qualified Code(s): A41.9 - Sepsis, unspecified organism (3) Cerebellar ataxia SNOMED Code(s): 31543536 ICD Code: G11.9 - HEREDITARY ATAXIA, UNSPECIFIED Status: Chronic Current Visit: Yes (4) Chronic ITP (idiopathic thrombocytopenia) SNOMED Code(s): 757989697 ICD Code: D69.3 - IMMUNE THROMBOCYTOPENIC PURPURA Status: Chronic Current Visit: Yes Problem List Initiated/Reviewed/Updated: Yes Orders Last 24hrs: Active Orders 24 hr Category Date Time Status Patient Status Manage Transfer [TRANSFER] Routine ADT 11/22/17 16:58 Ordered Chest 1V Frontal [CR] Stat Exams 11/22/17 15:29 Taken CULTURE BLOOD [BC] Urgent Lab 11/22/17 15:45 Received CULTURE BLOOD [BC] Urgent Lab 11/22/17 15:55 Received CULTURE URINE [RM] Stat Lab 11/22/17 16:30 Received Piperacillin/Tazobactam [Zosyn] 3.375 gm Med 11/22/17 16:45 Active Sodium Chloride 0.9% [Normal Saline] 50 ml IV Q6H Sodium Chloride 0.9% [Normal Saline] 1,000 ml Med 11/22/17 15:45 Active IV ASDIRECTED Sodium Chloride 0.9% [Normal Saline] 1,000 ml Med 11/22/17 17:00 Active IV ASDIRECTED Sodium Chloride 0.9% [Saline Flush] Med 11/22/17 15:33 Active 10 ml FLUSH ASDIRECTED PRN Vancomycin 1.75 gm Med 11/22/17 17:00 Active Sodium Chloride 0.9% [Normal Saline] 250 ml IV ONETIME Blood Culture x2 Reflex Set [OM.PC] Urgent Oth 11/22/17 15:29 Ordered Saline Lock Insert [OM.PC] Routine Oth 11/22/17 15:33 Ordered Resuscitation Status Routine Resus Stat 11/22/17 17:00 Ordered Medication Orders Sodium Chloride (Normal Saline) 1,000 mls @ 250 mls/hr IV ASDIRECTED HERRERA Last Admin: 11/22/17 15:53 Dose: 250 mls/hr Piperacillin Sod/Tazobactam (Sod 3.375 gm/ Sodium Chloride) 50 mls @ 100 mls/ hr IV Q6H [facility] Last Admin: 11/22/17 17:05 Dose: 100 mls/hr Vancomycin HCl 1.75 gm/ Sodium (Chloride) 250 mls @ 150 mls/hr IV ONETIME ONE Stop: 11/22/17 18:39 Sodium Chloride (Normal Saline) 1,000 mls @ 999 mls/hr IV ASDIRECTED [facility]ERR[facility] Stop: 11/22/17 18:01 Sodium Chloride (Saline Flush) 10 ml FLUSH ASDIRECTED PRN PRN Reason: Keep Vein Open Last Admin: 11/22/17 15:53 Dose: 10 ml Assessment/Plan Comment:: ASSESSMENT AND PLAN - Right lower leg cellulitis with sepsis - patient has failedoutpatient therapy with 2 different antibiotics. Now has evidence for sepsis including tachycardia , altered mental status and elevated lactic acid level. Cultures have been obtained and IV antibiotics administered in the emergency room. He is receiving IV fluids. -vancomycin and Pip/Tazo -IV fluids -Follow-up cultures -Cardiac monitoring -Fever management ITP - platelets currently at 21,000 which is higher than most recent levels. No evidence for bleeding at this time. -Stress dose of Solu-Medrol -Continue prednisone in the morning Cerebellar ataxia - chronic issue. Seems to be stable at this time. Complicated by spasticity. -Continue home medications Stage III chronic kidney disease - creatinine level near baseline at this time. Maintenance issues - - DVT prophylaxis - mechanical left leg (cellulitis right leg and thrombocytopenia) - GI prophylaxis - not indicated - Nutrition - regular diet - Gupta catheter - placed in the emergency room CODE STATUS - DNR/DNI Admission justification - This patient will be admitted for inpatient services and is medically appropriate meeting medical necessity for inpatient admission as outlined in my documentation. I reasonably expect the patient will require inpatient services that span a period time over 2 midnights. I reasonably expect this patient to be discharged or transferred within 96 hours [facility]. Disposition - [facility] the [facility] after the hospital stay Primary care physician - Dr Matteo Otoole M.D.
[2017-11-22] MEDS ORDERED: Acetaminophen 325 MG Tab PO PRN (17:47)
[2017-11-22] MEDS ORDERED: methylPREDNISolone Sodium Succinate 125 MG/2 ML SDV IVPUSH ONE (17:47)
[2017-11-22] MEDS ORDERED: Polyethylene Glycol 3350 Powder 17 GM Packet PO PRN (17:47)
[2017-11-22] MEDS ORDERED: Ondansetron 4 MG/2 ML SDV IV PRN (17:47)
[2017-11-22] MEDS ORDERED: Ondansetron 4 MG Tab.DIS PO PRN (17:47)
[2017-11-22] MEDS: Ibuprofen 600 MG Tab PO PRN (18:22)
[2017-11-22] MEDS: Sodium Chloride 0.9% 1,000 ML IV SCH (20:05)
[2017-11-22] MEDS: PHENobarbital 32.4 MG Tab PO SCH (20:52)
[2017-11-22] MEDS: Gabapentin 300 MG Cap PO SCH (20:52)
[2017-11-22] MEDS: Baclofen 10 MG Tab PO SCH (20:52)
[2017-11-22] MEDS: oxyCODONE 5 MG Tab PO PRN (20:54)
[2017-11-22] MEDS: Albuterol 0.083% 2.5 MG/3 ML Neb Soln NEB PRN (21:58)
[2017-11-22] MEDS: Morphine 2 MG/ML Syringe IVPUSH PRN (22:35)
[2017-11-23] MEDS: Morphine 2 MG/ML Syringe IVPUSH PRN (00:13)
[2017-11-23] MEDS: LORazepam 2 MG/ML MDV IVPUSH PRN ×2 (00:25→04:36)
[2017-11-23] MEDS: Sodium Chloride 0.9% 1,000 ML IV SCH (04:28)
[2017-11-23] MEDS: Piperacillin/Tazobactam 3.375 GM in Sodium Chloride 0.9% 50 ML IV SCH (04:49)
[2017-11-23] MEDS: predniSONE 20 MG Tab PO SCH (08:58)
[2017-11-23] MEDS: Gabapentin 300 MG Cap PO SCH ×2 (08:58→20:27)
[2017-11-23] MEDS: Baclofen 10 MG Tab PO SCH ×3 (08:58→20:27)
[2017-11-23] MEDS: Propranolol 60 MG Cap.ER PO SCH (08:58)
--- NOTE | 2017-11-23 09:20 | PCM.PN ---
- General Info Date of Service: 11/23/17 Subjective Update: Deon is a 57-year-old gentleman who was admitted yesterday with apparent cellulitis of his right lower extremity. He was noted to have erythema with increased warmth and swelling of the extremity. Lactic acid level was normal but he was noted to be tachycardic and felt to have possible early sepsis. He's received IV fluids during the night and has had no recurrent temperature elevation. White blood cell count is within normal range. 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 Platelet count has been fairly low recently and today is 13,000. Functional Status: Reports: Tolerating Diet - Review of Systems General: Reports: Fever, Weakness - Patient Data Vitals - Most Recent: Last Vital Signs Temp 98.7 F 11/23/17 07:39 Pulse 107 H 11/23/17 01:00 Resp 20 11/23/17 07:39 BP 119/59 L 11/23/17 07:39 Pulse Ox 99 11/23/17 07:39 Weight - Most Recent: 198 lb I&O - Last 24 Hours: Intake & Output 11/22/17 11/23/17 11/23/17 22:59 06:59 14:59 Intake Total 2827 Output Total 300 375 Balance -300 2452 Lab Results Last 24 Hours: Laboratory Results - last 24 hr 11/22/17 11/23/17 11/23/17 Range/Units 18:51 05:11 05:11 WBC 9.5 (4.5-11.0) K/uL RBC 4.39 (4.30-5.90) M/uL Hgb 13.6 (12.0-15.0) g/dL Hct 42.8 (40.0-54.0) % MCV 98 (80-98) fL MCH 31 (27-31) pg MCHC 32 (32-36) % Plt Count 13 L* (150-400) K/uL Sodium 142 (140-148) mmol/L Potassium 4.1 (3.6-5.2) mmol/L Chloride 105 (100-108) mmol/L Carbon Dioxide 32 (21-32) mmol/L Anion Gap 5.5 (5.0-14.0) mmol/L BUN 23 H (7-18) mg/dL Creatinine 0.9 (0.8-1.3) mg/dL Est Cr Clr Drug Dosing 85.69 mL/min Estimated GFR (MDRD) > 60 (>60) Glucose 96 (74-106) mg/dL Lactic Acid 1.9 (0.4-2.0) mmol/L Calcium 7.6 L (8.5-10.1) mg/dL Med Orders - Current: Current Medications Acetaminophen (Tylenol) 650 mg PO Q4H PRN PRN Reason: Pain (Mild 1-3)/fever Albuterol (Proventil Neb Soln) 2.5 mg NEB Q4H PRN PRN Reason: Shortness Of Breath/wheezing Last Admin: 11/22/17 21:58 Dose: 2.5 mg Baclofen (Lioresal) 10 mg PO TID [facility] Last Admin: 11/23/17 08:58 Dose: 10 mg Gabapentin (Neurontin) 300 mg PO BID [facility] Last Admin: 11/23/17 08:58 Dose: 300 mg Vancomycin HCl 1.25 gm/ Sodium (Chloride) 250 mls @ 150 mls/hr IV Q12H [facility] Last Admin: 11/23/17 06:19 Dose: 150 mls/hr Piperacillin/Tazobactam/ (Dextrose 3.375 gm/ Premix) 50 mls @ 100 mls/hr IV Q6H [facility] Ibuprofen (Motrin) 600 mg PO Q6H PRN PRN Reason: Pain/Fever Last Admin: 11/22/17 18:22 Dose: 600 mg Lorazepam (Ativan) 0.5 mg IVPUSH Q4H PRN PRN Reason: Spasms Last Admin: 11/23/17 04:36 Dose: 0.5 mg Morphine Sulfate (Morphine) 2 mg IVPUSH Q2H PRN PRN Reason: Pain (severe 7-10) Last Admin: 11/23/17 00:13 Dose: 2 mg Ondansetron HCl (Zofran Odt) 4 mg PO Q6H PRN PRN Reason: Nausea able to take PO Ondansetron HCl (Zofran) 4 mg IV Q6H PRN PRN Reason: Nausea/Vomiting Oxycodone HCl (Oxycodone) 5 mg PO Q4H PRN PRN Reason: Pain (moderate 4-6) Last Admin: 11/22/17 20:54 Dose: 5 mg Phenobarbital (Phenobarbital) 194.4 mg PO BEDTIME [facility] Last Admin: 11/22/17 20:52 Dose: 194.4 mg Polyethylene Glycol (Miralax) 17 gm PO DAILY PRN PRN Reason: Constipation Prednisone (Prednisone) 20 mg PO DAILY [facility] Last Admin: 11/23/17 08:58 Dose: 20 mg Propranolol HCl (Inderal La) 60 mg PO DAILY [facility] Last Admin: 11/23/17 08:58 Dose: 60 mg Senna/Docusate Sodium (Senna Plus) 1 tab PO BID PRN PRN Reason: Constipation Sodium Chloride (Saline Flush) 10 ml FLUSH ASDIRECTED PRN PRN Reason: Keep Vein Open Last Admin: 11/22/17 15:53 Dose: 10 ml Discontinued Medications Acetaminophen (Tylenol Extra Strength) 1,000 mg PO ONETIME ONE Stop: 11/22/17 15:59 Last Admin: 11/22/17 16:28 Dose: 1,000 mg Sodium Chloride (Normal Saline) 1,000 mls @ 250 mls/hr IV ASDIRECTED [facility] Last Admin: 11/22/17 15:53 Dose: 250 mls/hr Piperacillin Sod/Tazobactam (Sod 3.375 gm/ Sodium Chloride) 50 mls @ 100 mls/ hr IV Q6H [facility] Last Admin: 11/23/17 04:49 Dose: 100 mls/hr Vancomycin HCl 1.75 gm/ Sodium (Chloride) 250 mls @ 150 mls/hr IV ONETIME ONE Stop: 11/22/17 18:39 Last Admin: 11/22/17 17:41 Dose: 150 mls/hr Sodium Chloride (Normal Saline) 1,000 mls @ 999 mls/hr IV ASDIRECTED [facility] Stop: 11/22/17 18:01 Last Admin: 11/22/17 17:00 Dose: 999 mls/hr Sodium Chloride (Normal Saline) 1,000 mls @ 125 mls/hr IV ASDIRECTED [facility] Last Admin: 11/23/17 04:28 Dose: 125 mls/hr Methylprednisolone Sodium Succinate (Solu-Medrol) 125 mg IVPUSH ONETIME ONE Stop: 11/22/17 17:48 Last Admin: 11/22/17 18:17 Dose: 125 mg Ondansetron HCl (Zofran) 4 mg IVPUSH ONETIME ONE Stop: 11/22/17 15:35 Last Admin: 11/22/17 16:29 Dose: 4 mg - Exam Quality Assessment: Urine Catheter, DVT Prophylaxis General: Cooperative Lungs: Clear to Auscultation, Normal Respiratory Effort Cardiovascular: Regular Rate, Regular Rhythm, No Murmurs GI/Abdominal Exam: Soft, Non-Tender, No Organomegaly, No Distention Extremities: Leg Pain, Increased Warmth, Redness Skin: Warm, Dry - Problem List Review Problem List Initiated/Reviewed/Updated: Yes - My Orders Last 24 Hours: My Active Orders 11/23/17 09:14 Convert IV to Saline Lock [OM.PC] Routine 11/24/17 05:00 BASIC METABOLIC PANEL,BMP [CHEM] Timed CBC WITH AUTO DIFF [HEME] Timed - Plan Plan:: ASSESSMENT AND PLAN - Right lower leg cellulitis with sepsis - patient has failedoutpatient therapy with 2 different antibiotics. Fairly stable since admission, no recurrent temperature elevation since yesterday. Heart rate remains mildly elevated lactic acid level was normal on admission. Blood cultures are pending. -vancomycin and Pip/Tazo -Saline lock IV -Follow-up cultures -Cardiac monitoring -Fever management ITP - platelets currently at 13,000. No evidence for bleeding at this time. -Continue usual dose of prednisone Cerebellar ataxia - chronic issue. Seems to be stable at this time. Complicated by spasticity. -Continue home medications Stage III chronic kidney disease - creatinine level near baseline at this time. Maintenance issues - - DVT prophylaxis - mechanical left leg (cellulitis right leg and thrombocytopenia) - GI prophylaxis - not indicated - Nutrition - regular diet - Gupta catheter - placed in the emergency room CODE STATUS - DNR/DNI Admission justification - This patient will be admitted for inpatient services and is medically appropriate meeting medical necessity for inpatient admission as outlined in my documentation. I reasonably expect the patient will require inpatient services that span a period time over 2 midnights. I reasonably expect this patient to be discharged or transferred within 96 hours [facility] Disposition - [facility] back [facility] the [place] [facility] after the hospital stay Primary care physician - Dr Felipe
[2017-11-23] MEDS: Piperacillin/Tazobactam/Dext 3.375 GM in Premix Bag 1 BAG IV SCH ×3 (11:41→23:56)
[2017-11-23] MEDS: Ibuprofen 600 MG Tab PO PRN (11:42)
[2017-11-23] MEDS: PHENobarbital 32.4 MG Tab PO SCH (20:27)
[2017-11-23] MEDS: oxyCODONE 5 MG Tab PO PRN (20:29)
[2017-11-24] MEDS: Ibuprofen 600 MG Tab PO PRN (00:07)
[2017-11-24] MEDS: Piperacillin/Tazobactam/Dext 3.375 GM in Premix Bag 1 BAG IV SCH ×4 (05:32→23:45)
[2017-11-24] MEDS: Gabapentin 300 MG Cap PO SCH ×2 (08:57→20:42)
[2017-11-24] MEDS: Baclofen 10 MG Tab PO SCH ×3 (08:57→20:42)
[2017-11-24] MEDS: predniSONE 20 MG Tab PO SCH (08:57)
[2017-11-24] MEDS: Propranolol 60 MG Cap.ER PO SCH (08:57)
--- NOTE | 2017-11-24 09:08 | CR ---
Low lung lines. Heart size upper limits of normal. No focal consolidation.
--- NOTE | 2017-11-24 10:25 | PCM.PN ---
- General Info Date of Service: 11/24/17 Subjective Update: Mr. Guy has been stable over the past 24 hours. He did experience temperature elevation yesterday but has had none since then. Erythema and swelling of the leg has essentially resolved and white blood cell count has remained normal. Platelets are low but stable from where they've been over the past few months. Is not able to communicate concerning review of systems because of his cerebellar ataxia. Functional Status: Reports: Pain Controlled, Tolerating Diet - Review of Systems General: Denies: Fever, Chills - Patient Data Vitals - Most Recent: Last Vital Signs Temp 97.6 F 11/24/17 07:28 Pulse 107 H 11/23/17 01:00 Resp 20 11/24/17 07:28 BP 95/66 11/24/17 07:28 Pulse Ox 94 L 11/24/17 07:28 Weight - Most Recent: 198 lb I&O - Last 24 Hours: Intake & Output 11/23/17 11/24/17 11/24/17 22:59 06:59 14:59 Intake Total 1130 950 Output Total 1200 2025 600 Balance -70 -1075 -600 Lab Results Last 24 Hours: Laboratory Results - last 24 hr 11/24/17 11/24/17 11/24/17 Range/Units 05:30 05:30 05:30 WBC 7.3 (4.5-11.0) K/uL RBC 4.20 L (4.30-5.90) M/uL Hgb 12.8 (12.0-15.0) g/dL Hct 40.4 (40.0-54.0) % MCV 96 (80-98) fL MCH 31 (27-31) pg MCHC 32 (32-36) % Plt Count 13 L* (150-400) K/uL Neut % (Auto) 71 H (36-66) % Lymph % (Auto) 11 L (24-44) % [place]ole % (Auto) 17 H (2-6) % Eos % (Auto) 0 L (2-4) % Baso % (Auto) 0 (0-1) % Sodium 142 (140-148) mmol/L Potassium 4.0 (3.6-5.2) mmol/L Chloride 105 (100-108) mmol/L Carbon Dioxide 33 H (21-32) mmol/L Anion Gap 8.0 (5.0-14.0) mmol/L BUN 12 (7-18) mg/dL Creatinine 0.8 (0.8-1.3) mg/dL Est Cr Clr Drug Dosing 96.40 mL/min Estimated GFR (MDRD) > 60 (>60) Glucose 91 (74-106) mg/dL Calcium 7.5 L (8.5-10.1) mg/dL Vancomycin Trough 10.8 (10.0-20.0) ug/mL Med Orders - Current: Current Medications Acetaminophen (Tylenol) 650 mg PO Q4H PRN PRN Reason: Pain (Mild 1-3)/fever Albuterol (Proventil Neb Soln) 2.5 mg NEB Q4H PRN PRN Reason: Shortness Of Breath/wheezing Last Admin: 11/22/17 21:58 Dose: 2.5 mg Baclofen (Lioresal) 10 mg PO TID [facility] Last Admin: 11/24/17 08:57 Dose: 10 mg Gabapentin (Neurontin) 300 mg PO BID [facility] Last Admin: 11/24/17 08:57 Dose: 300 mg Piperacillin/Tazobactam/ (Dextrose 3.375 gm/ Premix) 50 mls @ 100 mls/hr IV Q6H [facility] Last Admin: 11/24/17 05:32 Dose: 100 mls/hr Ibuprofen (Motrin) 600 mg PO Q6H PRN PRN Reason: Pain/Fever Last Admin: 11/24/17 00:07 Dose: 600 mg Lorazepam (Ativan) 0.5 mg IVPUSH Q4H PRN PRN Reason: Spasms Last Admin: 11/23/17 04:36 Dose: 0.5 mg Morphine Sulfate (Morphine) 2 mg IVPUSH Q2H PRN PRN Reason: Pain (severe 7-10) Last Admin: 11/23/17 00:13 Dose: 2 mg Ondansetron HCl (Zofran Odt) 4 mg PO Q6H PRN PRN Reason: Nausea able to take PO Ondansetron HCl (Zofran) 4 mg IV Q6H PRN PRN Reason: Nausea/Vomiting Oxycodone HCl (Oxycodone) 5 mg PO Q4H PRN PRN Reason: Pain (moderate 4-6) Last Admin: 11/23/17 20:29 Dose: 5 mg Phenobarbital (Phenobarbital) 194.4 mg PO BEDTIME [facility] Last Admin: 11/23/17 20:27 Dose: 194.4 mg Polyethylene Glycol (Miralax) 17 gm PO DAILY PRN PRN Reason: Constipation Prednisone (Prednisone) 20 mg PO DAILY [facility] Last Admin: 11/24/17 08:57 Dose: 20 mg Propranolol HCl (Inderal La) 60 mg PO DAILY [facility] Last Admin: 11/24/17 08:57 Dose: 60 mg Senna/Docusate Sodium (Senna Plus) 1 tab PO BID PRN PRN Reason: Constipation Sodium Chloride (Saline Flush) 10 ml FLUSH ASDIRECTED PRN PRN Reason: Keep Vein Open Last Admin: 11/22/17 15:53 Dose: 10 ml Discontinued Medications Acetaminophen (Tylenol Extra Strength) 1,000 mg PO ONETIME ONE Stop: 11/22/17 15:59 Last Admin: 11/22/17 16:28 Dose: 1,000 mg Sodium Chloride (Normal Saline) 1,000 mls @ 250 mls/hr IV ASDIRECTED [facility] Last Admin: 11/22/17 15:53 Dose: 250 mls/hr Piperacillin Sod/Tazobactam (Sod 3.375 gm/ Sodium Chloride) 50 mls @ 100 mls/ hr IV Q6H [facility] Last Admin: 11/23/17 04:49 Dose: 100 mls/hr Vancomycin HCl 1.75 gm/ Sodium (Chloride) 250 mls @ 150 mls/hr IV ONETIME ONE Stop: 11/22/17 18:39 Last Admin: 11/22/17 17:41 Dose: 150 mls/hr Sodium Chloride (Normal Saline) 1,000 mls @ 999 mls/hr IV ASDIRECTED [facility] Stop: 11/22/17 18:01 Last Admin: 11/22/17 17:00 Dose: 999 mls/hr Sodium Chloride (Normal Saline) 1,000 mls @ 125 mls/hr IV ASDIRECTED [facility] Last Admin: 11/23/17 04:28 Dose: 125 mls/hr Vancomycin HCl 1.25 gm/ Sodium (Chloride) 250 mls @ 150 mls/hr IV Q12H [facility] Last Admin: 11/24/17 06:15 Dose: 150 mls/hr Vancomycin HCl 1.4 gm/ Sodium (Chloride) 250 mls @ 150 mls/hr IV Q12H [facility] Methylprednisolone Sodium Succinate (Solu-Medrol) 125 mg IVPUSH ONETIME ONE Stop: 11/22/17 17:48 Last Admin: 11/22/17 18:17 Dose: 125 mg Ondansetron HCl (Zofran) 4 mg IVPUSH ONETIME ONE Stop: 11/22/17 15:35 Last Admin: 11/22/17 16:29 Dose: 4 mg - Exam Quality Assessment: DVT Prophylaxis General: Alert, Cooperative, No Acute Distress Lungs: Clear to Auscultation, Normal Respiratory Effort Cardiovascular: Regular Rate, Regular Rhythm, No Murmurs GI/Abdominal Exam: Soft, Non-Tender, No Organomegaly, No Distention Extremities: Non-Tender, No Pedal Edema Skin: Warm, Dry - Problem List Review Problem List Initiated/Reviewed/Updated: Yes - My Orders Last 24 Hours: My Active Orders 11/25/17 05:00 CBC WITH AUTO DIFF [HEME] Timed - Plan Plan:: ASSESSMENT AND PLAN - Right lower leg cellulitis with sepsis - blood cultures negative thus far, sepsis has resolved, no further erythema or swelling in the leg. -Discontinue IV vancomycin -Continue IV Zosyn additional 24 hours -Saline lock IV -Follow-up cultures -Fever management ITP - platelets currently at 13,000. No evidence for bleeding at this time. -Continue usual dose of prednisone Cerebellar ataxia - chronic issue. Seems to be stable at this time. Complicated by spasticity. -Continue home medications Stage III chronic kidney disease - creatinine level near baseline at this time. Maintenance issues - - DVT prophylaxis - mechanical left leg (cellulitis right leg and thrombocytopenia) - GI prophylaxis - not indicated - Nutrition - regular diet - Gupta catheter - placed in the emergency room CODE STATUS - DNR/DNI Admission justification - This patient will be admitted for inpatient services and is medically appropriate meeting medical necessity for inpatient admission as outlined in my documentation. I reasonably expect the patient will require inpatient services that span a period time over 2 midnights. I reasonably expect this patient to be discharged or transferred within 96 hours [facility] Disposition - anticipate discharge back to the group home after the hospital stay Primary care physician - Dr Felipe
[2017-11-24] MEDS ORDERED: Vancomycin 1.4 GM in Sodium Chloride 0.9% 250 ML IV SCH (18:00)
[2017-11-24] MEDS: PHENobarbital 32.4 MG Tab PO SCH (20:42)
[2017-11-24] MEDS: Albuterol 0.083% 2.5 MG/3 ML Neb Soln NEB PRN (21:01)
[2017-11-25] MEDS: Piperacillin/Tazobactam/Dext 3.375 GM in Premix Bag 1 BAG IV SCH (05:33)
[2017-11-25 05:52] VITALS: BP 126/81
--- NOTE | 2017-11-25 09:24 | PCM.DCSUM1 ---
Discharge Summary - Hospital Course Brief History: Mr. Guy is a 57-year-old gentleman who was admitted through the emergency department for management of cellulitis and sepsis secondary to infection of his leg, having failed outpatient antibiotic therapy. - Discharge Data Discharge Date: 11/25/17 Discharge Disposition: DC/Tfer to [facility] Condition: Fair - Discharge Diagnosis/Problem(s) (1) Cellulitis of right leg SNOMED Code(s): 374689173 ICD Code: L03.115 - CELLULITIS OF RIGHT LOWER LIMB Status: Acute Current Visit: Yes (2) Sepsis SNOMED Code(s): 59567451 ICD Code: A41.9 - SEPSIS, UNSPECIFIED ORGANISM Status: Acute Current Visit: Yes Qualifiers: Sepsis type: sepsis due to unspecified organism Qualified Code(s): A41.9 - Sepsis, unspecified organism (3) Cerebellar ataxia SNOMED Code(s): 89321232 ICD Code: G11.9 - HEREDITARY ATAXIA, UNSPECIFIED Status: Chronic Current Visit: Yes (4) Chronic ITP (idiopathic thrombocytopenia) SNOMED Code(s): 291160051 ICD Code: D69.3 - IMMUNE THROMBOCYTOPENIC PURPURA Status: Chronic Current Visit: Yes - Patient Summary/Data Hospital Course: Mr. Guy is a 57-year-old gentleman who is admitted through the emergency department with cellulitis of his right lower extremity and associated sepsis. He resides at the shelter because of cerebellar ataxia. He been noted to have infection in the right foot for the previous week. Initially treated with cephalexin and then switch to trimethoprim sulfamethoxazole. Despite oral antibiotic therapy infection appeared to have spread and on the day of admission developed significant temperature elevation with lethargy. He was brought into the emergency department for further evaluation. White blood cell count was elevated and he was noted to have temperature elevation. In addition was tachycardic with an elevated lactic acid level felt to represent sepsis. IV antibiotics were initiated after blood cultures were obtained and he was given vigorous IV fluid or placement via sepsis protocol. Improved significantly over the next few days of hospitalization and the time of discharge she was no evidence of residual infection in the foot. He will be continued on oral antibiotic therapy with Augmentin for an additional 6 days. He will be placed on probiotic therapy for the next month. Platelet count was monitored throughout his hospital stay because of his history of ITP and remained low but stable within the range that it's been running as an outpatient. He will be continued on his oral prednisone at the time of discharge. Activity will be as tolerated and he will resume usual diet. - Patient Instructions Diet: Usual Diet as Tolerated Activity: As Tolerated - Discharge Plan Prescriptions/Med Rec: Amoxicillin/Potassium Clav [Augmentin 875-125 Tablet] 1 each PO BID #12 tablet Lactobacillus Acidophilus [Acidophilus Lactobacillus] 1 each PO BID #60 capsule Home Medications: Home Meds Baclofen 10 mg PO TID 07/11/17 [History] Gabapentin [Neurontin] 300 mg PO BID 07/11/17 [History] PHENobarbital 6 tab PO BEDTIME 07/11/17 [History] Prednisone [IJD: predniSONE] 20 mg PO DAILY 07/11/17 [History] Propranolol [Inderal LA] 60 mg PO DAILY 07/11/17 [History] Amoxicillin/Potassium Clav [Augmentin 875-125 Tablet] 1 each PO BID #12 tablet 11/25/17 [Rx] Lactobacillus Acidophilus [Acidophilus Lactobacillus] 1 each PO BID #60 capsule 11/25/17 [Rx] Forms: ED Department Discharge Referrals: Wilmar Felipe MD [Primary Care Provider] - - Patient Data Vitals - Most Recent: Last Vital Signs Temp 98.9 F 11/25/17 04:00 Pulse 80 11/25/17 06:00 Resp 20 11/25/17 06:00 BP 126/81 11/25/17 04:00 Pulse Ox 88 L 11/25/17 02:00 Weight - Most Recent: 198 lb I&O - Last 24 hours: Intake & Output 11/24/17 11/25/17 11/25/17 22:59 06:59 14:59 Intake Total 800 Balance 800 Lab Results - Last 24 hrs: Laboratory Results - last 24 hr 11/25/17 Range/Units 05:55 WBC 5.5 (4.5-11.0) K/uL RBC 4.59 (4.30-5.90) M/uL Hgb 14.4 (12.0-15.0) g/dL Hct 43.9 (40.0-54.0) % MCV 96 (80-98) fL MCH 31 (27-31) pg MCHC 33 (32-36) % Plt Count 18 L* (150-400) K/uL Neut % (Auto) 67 H (36-66) % Lymph % (Auto) 17 L (24-44) % [place] % (Auto) 15 H (2-6) % Eos % (Auto) 0 L (2-4) % Baso % (Auto) 0 (0-1) % Med Orders - Current: Current Medications Acetaminophen (Tylenol) 650 mg PO Q4H PRN PRN Reason: Pain (Mild 1-3)/fever Albuterol (Proventil Neb Soln) 2.5 mg NEB Q4H PRN PRN Reason: Shortness Of Breath/wheezing Last Admin: 11/24/17 21:01 Dose: 2.5 mg Baclofen (Lioresal) 10 mg PO TID [facility] Last Admin: 11/24/17 20:42 Dose: 10 mg Gabapentin (Neurontin) 300 mg PO BID [facility] Last Admin: 11/24/17 20:42 Dose: 300 mg Piperacillin/Tazobactam/ (Dextrose 3.375 gm/ Premix) 50 mls @ 100 mls/hr IV Q6H [facility] Last Admin: 11/25/17 05:33 Dose: 100 mls/hr Ibuprofen (Motrin) 600 mg PO Q6H PRN PRN Reason: Pain/Fever Last Admin: 11/24/17 00:07 Dose: 600 mg Lorazepam (Ativan) 0.5 mg IVPUSH Q4H PRN PRN Reason: Spasms Last Admin: 11/23/17 04:36 Dose: 0.5 mg Morphine Sulfate (Morphine) 2 mg IVPUSH Q2H PRN PRN Reason: Pain (severe 7-10) Last Admin: 11/23/17 00:13 Dose: 2 mg Ondansetron HCl (Zofran Odt) 4 mg PO Q6H PRN PRN Reason: Nausea able to take PO Ondansetron HCl (Zofran) 4 mg IV Q6H PRN PRN Reason: Nausea/Vomiting Oxycodone HCl (Oxycodone) 5 mg PO Q4H PRN PRN Reason: Pain (moderate 4-6) Last Admin: 11/23/17 20:29 Dose: 5 mg Phenobarbital (Phenobarbital) 194.4 mg PO BEDTIME [facility] Last Admin: 11/24/17 20:42 Dose: 194.4 mg Polyethylene Glycol (Miralax) 17 gm PO DAILY PRN PRN Reason: Constipation Prednisone (Prednisone) 20 mg PO DAILY [facility] Last Admin: 11/24/17 08:57 Dose: 20 mg Propranolol HCl (Inderal La) 60 mg PO DAILY [facility] Last Admin: 11/24/17 08:57 Dose: 60 mg Senna/Docusate Sodium (Senna Plus) 1 tab PO BID PRN PRN Reason: Constipation Sodium Chloride (Saline Flush) 10 ml FLUSH ASDIRECTED PRN PRN Reason: Keep Vein Open Last Admin: 11/22/17 15:53 Dose: 10 ml Discontinued Medications Acetaminophen (Tylenol Extra Strength) 1,000 mg PO ONETIME ONE Stop: 11/22/17 15:59 Last Admin: 11/22/17 16:28 Dose: 1,000 mg Sodium Chloride (Normal Saline) 1,000 mls @ 250 mls/hr IV ASDIRECTED [facility] Last Admin: 11/22/17 15:53 Dose: 250 mls/hr Piperacillin Sod/Tazobactam (Sod 3.375 gm/ Sodium Chloride) 50 mls @ 100 mls/ hr IV Q6H [facility] Last Admin: 11/23/17 04:49 Dose: 100 mls/hr Vancomycin HCl 1.75 gm/ Sodium (Chloride) 250 mls @ 150 mls/hr IV ONETIME ONE Stop: 11/22/17 18:39 Last Admin: 11/22/17 17:41 Dose: 150 mls/hr Sodium Chloride (Normal Saline) 1,000 mls @ 999 mls/hr IV ASDIRECTED [facility] Stop: 11/22/17 18:01 Last Admin: 11/22/17 17:00 Dose: 999 mls/hr Sodium Chloride (Normal Saline) 1,000 mls @ 125 mls/hr IV ASDIRECTED [facility] Last Admin: 11/23/17 04:28 Dose: 125 mls/hr Vancomycin HCl 1.25 gm/ Sodium (Chloride) 250 mls @ 150 mls/hr IV Q12H [facility] Last Admin: 11/24/17 06:15 Dose: 150 mls/hr Vancomycin HCl 1.4 gm/ Sodium (Chloride) 250 mls @ 150 mls/hr IV Q12H [facility] Methylprednisolone Sodium Succinate (Solu-Medrol) 125 mg IVPUSH ONETIME ONE Stop: 11/22/17 17:48 Last Admin: 11/22/17 18:17 Dose: 125 mg Ondansetron HCl (Zofran) 4 mg IVPUSH ONETIME ONE Stop: 11/22/17 15:35 Last Admin: 11/22/17 16:29 Dose: 4 mg *Q Meaningful Use (DIS) - VTE *Q VTE Criteria *Q: VTE Pharmacological Contraindications *Q: Thrombocytopenia - Stroke *Q Stroke Criteria *Q: - AMI *Q AMI Criteria *Q:
[2017-11-25] MEDS: Propranolol 60 MG Cap.ER PO SCH (09:56)
[2017-11-25] MEDS: Gabapentin 300 MG Cap PO SCH (09:56)
[2017-11-25] MEDS: Baclofen 10 MG Tab PO SCH (09:56)
[2017-11-25] MEDS: predniSONE 20 MG Tab PO SCH (09:57)
== END 2017-11-25 11:26 | DRG 872 ==
LOC: JP.ED 13:40 → JP.ICU 16:58
PROVIDERS: ADMIT Internal Medicine; ATTEND Hospitalist
DX: A41.9 Sepsis, unspecified organism (principal); L03.115 Cellulitis of right lower limb; G11.9 Hereditary ataxia, unspecified; D69.3 Immune thrombocytopenic purpura; G40.909 Epilepsy, unspecified, not intractable, without status epilepticus; Z66 Do not resuscitate; N18.3 Chronic kidney disease, stage 3 (moderate); R50.9 Fever, unspecified; M79.89 Other specified soft tissue disorders; H91.90 Unspecified hearing loss, unspecified ear; Z79.52 Long term (current) use of systemic steroids
CPT/HCPCS: 36415; 71010 ×2; 80053; 81001; 83605; 85025; 86140; 87040 ×2; 87086; 96374; 99285; A9270; J2405; J7040; J7050; 80048; 80202; 85027; 94640; 99284; J2060; J2270; J2543; J2930; J3370

== ENCOUNTER 2017-12-30 23:24 | Inpatient (IN) | payer MEDICARE, MEDICAID ==
[2017-12-31] MEDS ORDERED: Azithromycin 500 MG in Sodium Chloride 0.9% 250 ML IV SCH ×2
[2017-12-31] MEDS ORDERED: Acetaminophen 1,000 MG in Premix Bag 1 BAG IV ONE (00:07)
[2017-12-31] MEDS ORDERED: Albuterol/Ipratropium 3.0-0.5 MG/3 ML Neb Soln NEB ONE (00:07)
[2017-12-31] MEDS ORDERED: Piperacillin/Tazobactam 3.375 GM in Sodium Chloride 0.9% 50 ML IV SCH (00:15)
[2017-12-31] MEDS: Sodium Chloride 0.9% 1,000 ML IV SCH ×3 (00:20→02:24)
[2017-12-31] MEDS: cefTRIAXone 2 GM in Sodium Chloride 0.9% 50 ML IV SCH ×2 (00:27→10:15)
--- NOTE | 2017-12-31 00:32 | PCM.HP ---
H&P History of Present Illness - General Date of Service: 12/30/17 Source of Information: EMS Notes Reviewed, [facility] Records, RN History Limitations: Reports: Altered Mental Status, Physical Impairment - History of Present Illness Initial Comments - Free Text/Narative: Fever with low oxygen sats.: This is a 57 year [facility] Resident. Arrives via EMS, shelter reports; sudden onset of low oxygen saturation, rates at 81%. complaints of dizziness, extreme spasm bilateral lower legs, temp 102.2 at 2230, up from 99.8 at 2205. blood pressure 138/88. usual level of functioning; difficulty making needs known, focus on one word sentences , he can read with his glasses. Upon arrival to ER, Mr. Guy was noted to have fever of 102-120-27, oxygen sat 87 to 89% on 6liter via mask. He answers yes or no. appear ill. ER Orders; labs; CBC, CMP, LACTIC ACID, CRP, UA, blood cultures x 2 Imaging; Chest 1 view Oxygen via mask IV fluids, IV Rocephin, IV Zithromax, Duo nebs. carmona cath placed. Onset of Symptoms: Reports: Sudden Duration of Symptoms: Reports: Getting Worse Location: Reports: Generalized Severity: Severe Associated Symptoms: Reports: Cough, Fever/Chills, Shortness of Breath - Related Data Allergies/Adverse Reactions: Allergies Allergy/AdvReac Type Severity Reaction Status Date / Time No Known Allergies Allergy Verified 12/30/17 23:49 Home Medications: Home Meds Baclofen 10 mg PO TID 07/11/17 [History] Gabapentin [Neurontin] 600 mg PO BID 07/11/17 [History] PHENobarbital 194.4 mg PO BEDTIME 07/11/17 [History] Prednisone [IJD: predniSONE] 20 mg PO DAILY 07/11/17 [History] Propranolol [Inderal LA] 60 mg PO DAILY 07/11/17 [History] Acetaminophen [Tylenol] 325 mg PO Q4H PRN 12/31/17 [History] Albuterol/Ipratropium [DuoNeb 3.0-0.5 MG/3 ML] 3 ml INH QID 12/31/17 [History] Alum Hydrox/Mag Hydrox/Simeth [Maalox Advanced] 20 ml PO Q4H PRN 12/31/17 [ History] Magnesium Hydroxide [Milk of Magnesia] 30 ml PO DAILY PRN 12/31/17 [History] Triamcinolone Acetonide [Triamcinolone Acetonide 0.1% Crm] 1 applic TOP Q8H PRN 12/31/17 [History] guaiFENesin [Guaifenesin] 400 mg PO Q4H PRN 12/31/17 [History] Past Medical History HEENT History: Reports: Hard of Hearing Respiratory History: Reports: Pneumonia, Recurrent Musculoskeletal History: Reports: Fracture, Other (See Below) Other Musculoskeletal History: muscle spasticity, hereditary ataxia, currently fractured base first metacarpal right hand, casted Neurological History: Reports: Seizure, Other (See Below) Other Neuro History: 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 unspecified convulsions, degenerative disease of nervous system, tremor Psychiatric History: Reports: Developmental Delay Hematologic History: Reports: Other (See Below) Other Hematologic History: mother reports "platelet disoder", ITP Dermatologic History: Reports: Cellulitis - Infectious Disease History Infectious Disease History: Reports: Chicken Pox - Past Surgical History GI Surgical History: Reports: Cholecystectomy Social & Family History - Family History Cardiac: Reports: Heart Failure - Tobacco Use Smoking Status *Q: Unknown Ever Smoked Second Hand Smoke Exposure: No - Recreational Drug Use Recreational Drug Use: No - Living Situation & Occupation Living situation: Reports: Extended Care Facility Occupation: Disabled H&P Review of Systems - Review of Systems: Review Of Systems: Unable To Obtain General: Reports: ROS unobtainable, Fever Exam - Exam Exam: See Below - Vital Signs Vital Signs: Last Vital Signs Temp 39 C H 12/30/17 23:35 Pulse 122 H 12/30/17 23:35 Resp 22 H 12/30/17 23:35 BP 123/71 12/30/17 23:35 Pulse Ox 91 L 12/30/17 23:35 - Exam Quality Assessment: Supplemental Oxygen, Urinary Catheter General: Moderate Distress, Lethargic HEENT: PERRLA, Conjunctiva Clear, Mucosa Moist & [place], Pupils Equal, Pupils Reactive, Other (ear canal excessive wax) Neck: Supple, Trachea Midline Lungs: Decreased Breath Sounds, Other (coarse breath sounds) Cardiovascular: Regular Rate, Regular Rhythm, Normal S1, Normal S2 GI/Abdominal Exam: Normal Bowel Sounds, Soft, Non-Tender, No Distention (Male) Exam: Normal Inspection, Circumcised Rectal (Males) Exam: Deferred Back Exam: Normal Inspection Extremities: Non-Tender, No Pedal Edema, Slow Capillary Refill Skin: Warm, Dry, Wound (right hands, scratches noted to the left ) Neuro Extensive - Mental Status: Inattentive Neuro Extensive - Motor, Sensory, Reflexes: Motor/Sensory Deficits Psychiatric: Other (lethargic) - Patient Data Result Diagrams: 12/31/17 00:30 12/31/17 00:30 *Q Meaningful Use (ADM) - VTE *Q VTE Criteria *Q: - Stroke *Q Stroke Criteria *Q: - AMI *Q AMI Criteria *Q: - Problem List (1) Sepsis SNOMED Code(s): 65261706 ICD Code: A41.9 - SEPSIS, UNSPECIFIED ORGANISM Status: Acute Priority: High Current Visit: No Qualifiers: Sepsis type: sepsis due to unspecified organism Qualified Code(s): A41.9 - Sepsis, unspecified organism (2) Cerebellar ataxia SNOMED Code(s): 41504533 ICD Code: G11.9 - HEREDITARY ATAXIA, UNSPECIFIED Status: Chronic Priority : High Current Visit: Yes (3) Chronic ITP (idiopathic thrombocytopenia) SNOMED Code(s): 146948244 ICD Code: D69.3 - IMMUNE THROMBOCYTOPENIC PURPURA Status: Chronic Priority: High Current Visit: Yes (4) Pneumonia SNOMED Code(s): 547409523 ICD Code: J18.9 - PNEUMONIA, UNSPECIFIED ORGANISM Status: Acute Priority : High Current Visit: Yes Qualifiers: Pneumonia type: due to unspecified organism (5) Stage 3 chronic kidney disease SNOMED Code(s): 605091945 ICD Code: N18.3 - CHRONIC KIDNEY DISEASE, STAGE 3 (MODERATE) Status: Acute Priority: Medium Current Visit: Yes Problem List Initiated/Reviewed/Updated: Yes Orders Last 24hrs: Active Orders 24 hr Category Date Time Status RT Aerosol Therapy [RC] ASDIRECTED Care 12/31/17 00:07 Active Vital Signs [RC] Q1H Care 12/31/17 00:01 Active Chest 1V Frontal [CR] Stat Exams 12/31/17 00:05 Ordered ABG [BLOOD GAS ARTERIAL] [BG] Stat Lab 12/31/17 00:04 Ordered C-REACTIVE PROTEIN [CHEM] Stat Lab 12/31/17 00:01 Ordered CBC WITH AUTO DIFF [HEME] Stat Lab 12/31/17 00:01 Ordered COMPREHENSIVE METABOLIC PN,CMP [CHEM] Stat Lab 12/31/17 00:01 Ordered CULTURE BLOOD [BC] Urgent Lab 12/31/17 00:01 Ordered CULTURE BLOOD [BC] Urgent Lab 12/31/17 00:01 Ordered LACTIC ACID [CHEM] Stat Lab 12/31/17 00:01 Ordered UA W/MICROSCOPIC [URIN] Urgent Lab 12/31/17 00:00 Uncollected Azithromycin [Zithromax] 500 mg Med 12/31/17 00:00 Active Sodium Chloride 0.9% [Normal Saline] 250 ml IV Q24H Piperacillin/Tazobactam [Zosyn] 3.375 gm Med 12/31/17 00:15 Active Sodium Chloride 0.9% [Normal Saline] 50 ml IV Q6H Sodium Chloride 0.9% [Normal Saline] 1,000 ml Med 12/31/17 00:00 Active IV ASDIRECTED cefTRIAXone [Rocephin] 2 gm Med 12/31/17 00:00 Active Sodium Chloride 0.9% [Normal Saline] 50 ml IV Q8H Blood Culture x2 Reflex Set [OM.PC] Urgent Oth 12/31/17 00:01 Ordered Medication Orders Azithromycin 500 mg/ Sodium (Chloride) 250 mls @ 250 mls/hr IV Q24H [facility] Ceftriaxone Sodium 2 gm/ (Sodium Chloride) 50 mls @ 100 mls/hr IV Q8H [facility] Last Admin: 12/31/17 00:27 Dose: 100 mls/hr Sodium Chloride (Normal Saline) 1,000 mls @ 999 mls/hr IV ASDIRECTED [facility] Last Admin: 12/31/17 00:20 Dose: 999 mls/hr Piperacillin Sod/Tazobactam (Sod 3.375 gm/ Sodium Chloride) 50 mls @ 100 mls/ hr IV Q6H [facility] Assessment/Plan Comment:: ASSESSMENT / PLAN Pneumonia vs bronchitis vs Influenza -Admit to [address] [place] [address] for further monitoring -IV Fluids for rehydration NS at 125 mL per hour -IV Antibiotic: Zithromax 500 gram IV every 24 hours -IV Antibiotic: Rocephin 1 gm IV every 24 hours -Tamiflu 75mg po bid x 5 days -Cardiac monitoring -Fever management -bi-pap -Oxygen to keep oxygen saturation greater than 92% -albuterol nebulizer every 4 hours as needed for wheezing and cough -Duo neb ; scheduled nebulizer every 6 hours -Advise to notify nurses of any chest pain or other symptoms -blood cultures x2 pending -And a.m. labs: CBC, BMP, lactic acid ITP - platelets currently at 21,000 which is higher than most recent levels. No evidence for bleeding at this time. --Continue prednisone in the morning Cerebellar ataxia - chronic issue. Seems to be stable at this time. Complicated by spasticity. -Continue home medications Stage III chronic kidney disease - creatinine level near baseline at this time. Maintenance issues - - DVT prophylaxis - mechanical SCD - GI prophylaxis - IV Protonix 40mg - Nutrition - regular diet - Carmona catheter - placed in the emergency room CODE STATUS - DNR/DNI Admission justification - This patient will be admitted for inpatient services and is medically appropriate meeting medical necessity for inpatient admission as outlined in my documentation. I reasonably expect the patient will require inpatient services that span a period time over 2 midnights. I reasonably expect this patient to be discharged or transferred within 96 hours [facility]. Disposition - anticipate discharge back to the long term after the hospital stay Primary care physician - Dr Felipe Hospitalist: Michael Otoole M.D.
--- NOTE | 2017-12-31 02:06 | EDM.PDOC ---
ED HPI GENERAL MEDICAL PROBLEM - General Chief Complaint: Fever Stated Complaint: [facility] Time Seen by Provider: 12/30/17 23:59 Source of Information: Reports: EMS Notes Reviewed, Residential Records, RN History Limitations: Reports: Altered Mental Status, Physical Impairment - History of Present Illness INITIAL COMMENTS - FREE TEXT/NARRATIVE: Initial Comments - Free Text/Narative: Fever with low oxygen sats.: This is a 57 year Residential Resident. Arrives via EMS, retirement reports; sudden onset of low oxygen saturation, rates at 81%. complaints of dizziness, extreme spasm bilateral lower legs, temp 102.2 at 2230, up from 99.8 at 2205. blood pressure 138/88. usual level of functioning; difficulty making needs known, focus on one word sentences , he can read with his glasses. Upon arrival to ER, Mr. Guy was noted to have fever of 102-120-27, oxygen sat 87 to 89% on 6liter via mask. He answers yes or no. appear ill. Onset: Sudden Duration: Getting Worse Location: Reports: Generalized Severity: Severe Associated Symptoms: Reports: Cough, Fever/Chills, Shortness of Breath Treatments FOREPART LASTER: Reports: Other (see below) Other Treatments FOREPART LASTER: Oxygen, Albuterol Neb, and Duo Neb via Apartment Rental Clerk - Related Data Allergies Allergy/AdvReac Type Severity Reaction Status Date / Time No Known Allergies Allergy Verified 12/30/17 23:49 Home Meds: Home Meds Baclofen 10 mg PO TID 07/11/17 [History] Gabapentin [Neurontin] 600 mg PO BID 07/11/17 [History] PHENobarbital 194.4 mg PO BEDTIME 07/11/17 [History] Prednisone [IJD: predniSONE] 20 mg PO DAILY 07/11/17 [History] Propranolol [Inderal LA] 60 mg PO DAILY 07/11/17 [History] Acetaminophen [Tylenol] 325 mg PO Q4H PRN 12/31/17 [History] Albuterol/Ipratropium [DuoNeb 3.0-0.5 MG/3 ML] 3 ml INH QID 12/31/17 [History] Alum Hydrox/Mag Hydrox/Simeth [Maalox Advanced] 20 ml PO Q4H PRN 12/31/17 [ History] Magnesium Hydroxide [Milk of Magnesia] 30 ml PO DAILY PRN 12/31/17 [History] Triamcinolone Acetonide [Triamcinolone Acetonide 0.1% Crm] 1 applic TOP Q8H PRN 12/31/17 [History] guaiFENesin [Guaifenesin] 400 mg PO Q4H PRN 12/31/17 [History] Past Medical History HEENT History: Reports: Hard of Hearing Respiratory History: Reports: Pneumonia, Recurrent Musculoskeletal History: Reports: Fracture, Other (See Below) Other Musculoskeletal History: muscle spasticity, hereditary ataxia, currently fractured base first metacarpal right hand, casted Neurological History: Reports: Seizure, Other (See Below) Other Neuro History: 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 unspecified convulsions, degenerative disease of nervous system, tremor Psychiatric History: Reports: Developmental Delay Hematologic History: Reports: Other (See Below) Other Hematologic History: mother reports "platelet disoder", ITP Dermatologic History: Reports: Cellulitis - Infectious Disease History Infectious Disease History: Reports: Chicken Pox - Past Surgical History GI Surgical History: Reports: Cholecystectomy Social & Family History - Family History Cardiac: Reports: Heart Failure - Tobacco Use Smoking Status *Q: Unknown Ever Smoked Second Hand Smoke Exposure: No - Recreational Drug Use Recreational Drug Use: No - Living Situation & Occupation Living situation: Reports: Extended Care Facility Occupation: Disabled ED ROS GENERAL - Review of Systems Review Of Systems: Unable To Obtain Constitutional: Reports: Fever ED EXAM, GENERAL - Physical Exam Exam: See Below Exam Limited By: Respiratory Distress General Appearance: Lethargic, Moderate Distress Eye Exam: Bilateral Eye: PERRL Ears: Normal External Exam Ear Exam: Bilateral Ear: Other (excessive wax) Nose: Normal Inspection, Normal Mucosa, No Blood Throat/Mouth: Normal Inspection, Normal Lips, Normal Teeth Head: Atraumatic, Normocephalic Neck: Normal Inspection, Supple, Non-Tender Respiratory/Chest: Respiratory Distress (coarse breath sounds, oxygen sats 89% on 6l via NC), Decreased Breath Sounds, Crackles Cardiovascular: Regular Rate, Rhythm, No Murmur GI/Abdominal: Normal Bowel Sounds, Soft, Non-Tender, No Distention (Male) Exam: Circumcised, Deferred Rectal (Males) Exam: Deferred Back Exam: Normal Inspection Extremities: Non-Tender, No Pedal Edema, Slow Capillary Refill Neurological: Inattentive, Sensory/Motor Deficit (pre-existing) Skin Exam: Warm, Dry, Wound/Incision (right hand with abrasion, multi scratches noted to left hand) Lymphatic: No Adenopathy Course - Vital Signs Last Recorded V/S: Last Vital Signs Temp 37.5 C 12/31/17 01:52 Pulse 104 H 12/31/17 01:52 Resp 28 H 12/31/17 01:52 BP 96/55 L 12/31/17 01:52 Pulse Ox 93 L 12/31/17 01:52 - Orders/Labs/Meds Orders: Active Orders 24 hr Category Date Time Status Patient Status Manage Transfer [TRANSFER] Routine ADT 12/31/17 02:23 Ordered Gupta Catheter Insertion [Insert Urinary Catheter] [OM. Care 12/31/17 01:30 Ordered PC] Q24H RT Aerosol Therapy [RC] ASDIRECTED Care 12/31/17 00:07 Active Urinary Catheter Assessment [RC] ASDIRECTED Care 12/31/17 01:27 Active Vital Signs [RC] Q1H Care 12/31/17 00:01 Active Chest 1V Frontal [CR] Stat Exams 12/31/17 00:05 Taken CULTURE BLOOD [BC] Urgent Lab 12/31/17 00:20 Received CULTURE BLOOD [BC] Urgent Lab 12/31/17 00:25 Received UA W/MICROSCOPIC [URIN] Urgent Lab 12/31/17 01:20 Ordered Azithromycin [Zithromax] 500 mg Med 12/31/17 00:00 Active Sodium Chloride 0.9% [Normal Saline] 250 ml IV Q24H Oseltamivir [Tamiflu] Med 12/31/17 01:45 Active 75 mg PO BID Sodium Chloride 0.9% [Normal Saline] 1,000 ml Med 12/31/17 00:00 Active IV ASDIRECTED cefTRIAXone [Rocephin] 2 gm Med 12/31/17 00:00 Active Sodium Chloride 0.9% [Normal Saline] 50 ml IV Q8H Blood Culture x2 Reflex Set [OM.PC] Urgent Oth 12/31/17 00:01 Ordered Resuscitation Status Routine Resus Stat 12/31/17 02:25 Ordered Medication Orders Azithromycin 500 mg/ Sodium (Chloride) 250 mls @ 250 mls/hr IV Q24H [facility] Last Admin: 12/31/17 01:06 Dose: 250 mls/hr Ceftriaxone Sodium 2 gm/ (Sodium Chloride) 50 mls @ 100 mls/hr IV Q8H [facility] Last Admin: 12/31/17 00:27 Dose: 100 mls/hr Sodium Chloride (Normal Saline) 1,000 mls @ 999 mls/hr IV ASDIRECTED [facility] Last Admin: 12/31/17 02:24 Dose: 125 mls/hr Infusion: 12/31/17 02:23 Dose: 999 mls/hr Admin: 12/31/17 01:22 Dose: 999 mls/hr Infusion: 12/31/17 01:21 Dose: 999 mls/hr Admin: 12/31/17 00:20 Dose: 999 mls/hr Oseltamivir Phosphate (Tamiflu) 75 mg PO BID [facility] Labs: Laboratory Tests 12/31/17 12/31/17 12/31/17 Range/Units 00:20 00:30 00:30 WBC 22.6 H (4.5-11.0) K/uL RBC 4.70 (4.30-5.90) M/uL Hgb 14.8 (12.0-15.0) g/dL Hct 44.7 (40.0-54.0) % MCV 95 (80-98) fL MCH 32 H (27-31) pg MCHC 33 (32-36) % Plt Count 21 L* (150-400) K/uL Neut % (Auto) 93 H (36-66) % Lymph % (Auto) 3 L (24-44) % Guadalupe % (Auto) 4 (2-6) % Eos % (Auto) 0 L (2-4) % Baso % (Auto) 0 (0-1) % Puncture Site R radial ABG pH 7.490 H (7.350-7.450) ABG pCO2 39.2 (35.0-42.0) mmHg ABG pO2 68.0 L (75.0-100.0) mmHg ABG HCO3 29.6 H (22.0-26.0) mmol/L ABG Total CO2 25.1 (23.0-27.0) mmol/L ABG O2 Saturation 94.2 L (95.0-98.0) % ABG O2 Content 19.7 (15.0-23.0) %vol ABG Base Excess 6.2 mm/L ABG Hemoglobin 15.3 (13.5-18.0) g/dL ABG Oxyhemoglobin 91.8 % ABG Carboxyhemoglobin 1.8 H (0.0-1.6) % ABG Methemoglobin 0.8 % Feng Test Ok O2 Delivery Device Hi flow nasal cannu Oxygen Flow Rate 6 L Sodium 136 L (140-148) mmol/L Potassium 3.6 (3.6-5.2) mmol/L Chloride 100 (100-108) mmol/L Carbon Dioxide 29 (21-32) mmol/L Anion Gap 10.6 (5.0-14.0) mmol/L BUN 17 (7-18) mg/dL Creatinine 0.7 L (0.8-1.3) mg/dL Est Cr Clr Drug Dosing 117.83 mL/min Estimated GFR (MDRD) > 60 (>60) Glucose 105 (74-106) mg/dL Lactic Acid (0.4-2.0) mmol/L Calcium 8.1 L (8.5-10.1) mg/dL Total Bilirubin 0.5 D (0.2-1.0) mg/dL AST 30 (15-37) U/L ALT 27 (12-78) U/L Alkaline Phosphatase 150 H (46-116) U/L C-Reactive Protein 2.49 H (0.0-0.3) mg/dL Total Protein 6.0 L (6.4-8.2) g/dL Albumin 2.9 L (3.4-5.0) g/dL Globulin 3.1 (2.3-3.5) g/dL Albumin/Globulin Ratio 0.9 L (1.2-2.2) 12/31/17 Range/Units 00:30 WBC (4.5-11.0) K/uL RBC (4.30-5.90) M/uL Hgb (12.0-15.0) g/dL Hct (40.0-54.0) % MCV (80-98) fL MCH (27-31) pg MCHC (32-36) % Plt Count (150-400) K/uL Neut % (Auto) (36-66) % Lymph % (Auto) (24-44) % Guadalupe % (Auto) (2-6) % Eos % (Auto) (2-4) % Baso % (Auto) (0-1) % Puncture Site ABG pH (7.350-7.450) ABG pCO2 (35.0-42.0) mmHg ABG pO2 (75.0-100.0) mmHg ABG HCO3 (22.0-26.0) mmol/L ABG Total CO2 (23.0-27.0) mmol/L ABG O2 Saturation (95.0-98.0) % ABG O2 Content (15.0-23.0) %vol ABG Base Excess mm/L ABG Hemoglobin (13.5-18.0) g/dL ABG Oxyhemoglobin % ABG Carboxyhemoglobin (0.0-1.6) % ABG Methemoglobin % Feng Test O2 Delivery Device Oxygen Flow Rate L Sodium (140-148) mmol/L Potassium (3.6-5.2) mmol/L Chloride (100-108) mmol/L Carbon Dioxide (21-32) mmol/L Anion Gap (5.0-14.0) mmol/L BUN (7-18) mg/dL Creatinine (0.8-1.3) mg/dL Est Cr Clr Drug Dosing mL/min Estimated GFR (MDRD) (>60) Glucose (74-106) mg/dL Lactic Acid 1.6 (0.4-2.0) mmol/L Calcium (8.5-10.1) mg/dL Total Bilirubin (0.2-1.0) mg/dL AST (15-37) U/L ALT (12-78) U/L Alkaline Phosphatase (46-116) U/L C-Reactive Protein (0.0-0.3) mg/dL Total Protein (6.4-8.2) g/dL Albumin (3.4-5.0) g/dL Globulin (2.3-3.5) g/dL Albumin/Globulin Ratio (1.2-2.2) Meds: Medications Generic Name Dose Route Start Last Admin Trade Name Freq PRN Reason Stop Dose Admin Azithromycin 500 mg/ Sodium 250 mls @ 250 mls/hr 12/31/17 00:00 12/31/17 01: 06 Chloride IV 250 mls/hr Q24H [facility] Administration Ceftriaxone Sodium 2 gm/ 50 mls @ 100 mls/hr 12/31/17 00:00 12/31/17 00:27 Sodium Chloride IV 100 mls/hr Q8H [facility] Administration Sodium Chloride 1,000 mls @ 999 mls/hr 12/31/17 00:00 12/31/17 02:24 Normal Saline IV 125 mls/hr ASDIRECTED [facility] Administration Oseltamivir Phosphate 75 mg 12/31/17 01:45 Tamiflu PO BID [facility] Discontinued Medications Generic Name Dose Route Start Last Admin Trade Name Jeremias PRN Reason Stop Dose Admin Albuterol/Ipratropium 3 ml 12/31/17 00:07 12/31/17 00:26 Duoneb 3.0-0.5 Mg/3 Ml NEB 12/31/17 00:08 3 ml ONETIME ONE Administration Acetaminophen 1,000 mg/ Premix 100 mls @ 400 mls/hr 12/31/17 00:07 12/31/17 00:46 IV 12/31/17 00:21 400 mls/hr NOW ONE Administration Piperacillin Sod/Tazobactam 50 mls @ 100 mls/hr 12/31/17 00:15 Sod 3.375 gm/ Sodium Chloride IV Q6H [facility] - Re-Assessments/Exams Free Text/Narrative Re-Assessment/Exam: 12/31/17 02:[address] Otoole. will admit to hospital for further care and treatment. 12/31/17 02:39 place on Bi-pap in ER, significant improvement, oxygen sat 94%, pulse 90, resp rate 25, skin tone pink, Mr. Guy appear calm and relaxed. will admit to [address] [place] [address] for further care and treatment Departure - Departure Time of Disposition: 02:40 Disposition: Admitted As Inpatient 67 Condition: Fair Clinical Impression: Cerebellar ataxia, Chronic ITP (idiopathic thrombocytopenia), Pneumonia - Discharge Information Referrals: PCP,None [Primary Care Provider] - Forms: ED Department Discharge Care Plan Goals: admit to Hospital -IV fluids -IV antibiotic -labs -xray; chest -place on Bi-pap - Problem List & Annotations (1) Sepsis SNOMED Code(s): 71829602 Code(s): A41.9 - SEPSIS, UNSPECIFIED ORGANISM Status: Acute Priority: High Current Visit: No Qualifiers: Sepsis type: sepsis due to unspecified organism Qualified Code(s): A41.9 - Sepsis, unspecified organism (2) Cerebellar ataxia SNOMED Code(s): 68436385 Code(s): G11.9 - HEREDITARY ATAXIA, UNSPECIFIED Status: Chronic Priority : High Current Visit: Yes (3) Chronic ITP (idiopathic thrombocytopenia) SNOMED Code(s): 504280718 Code(s): D69.3 - IMMUNE THROMBOCYTOPENIC PURPURA Status: Chronic Priority : High Current Visit: Yes (4) Pneumonia SNOMED Code(s): 522260612 Code(s): J18.9 - PNEUMONIA, UNSPECIFIED ORGANISM Status: Acute Priority: High Current Visit: Yes Qualifiers: Pneumonia type: due to unspecified organism (5) Stage 3 chronic kidney disease SNOMED Code(s): 657742167 Code(s): N18.3 - CHRONIC KIDNEY DISEASE, STAGE 3 (MODERATE) Status: Acute Priority: Medium Current Visit: Yes - My Orders Last 24 Hours: My Active Orders 12/31/17 00:00 Azithromycin [Zithromax] 500 mg Sodium Chloride 0.9% [Normal Saline] 250 ml IV Q24H Sodium Chloride 0.9% [Normal Saline] 1,000 ml IV ASDIRECTED cefTRIAXone [Rocephin] 2 gm Sodium Chloride 0.9% [Normal Saline] 50 ml IV Q8H 12/31/17 00:01 Vital Signs [RC] Q1H Blood Culture x2 Reflex Set [OM.PC] Urgent 12/31/17 00:05 Chest 1V Frontal [CR] Stat 12/31/17 00:07 RT Aerosol Therapy [RC] ASDIRECTED 12/31/17 00:20 CULTURE BLOOD [BC] Urgent 12/31/17 00:25 CULTURE BLOOD [BC] Urgent 12/31/17 01:20 UA W/MICROSCOPIC [URIN] Urgent 12/31/17 01:27 Urinary Catheter Assessment [RC] ASDIRECTED 12/31/17 01:30 Gupta Catheter Insertion [Insert Urinary Catheter] [OM.PC] Q24H 12/31/17 01:45 Oseltamivir [Tamiflu] 75 mg PO BID 12/31/17 02:23 Patient Status Manage Transfer [TRANSFER] Routine 12/31/17 02:25 Resuscitation Status Routine - Assessment/Plan Last 24 Hours: My Active Orders 12/31/17 00:00 Azithromycin [Zithromax] 500 mg Sodium Chloride 0.9% [Normal Saline] 250 ml IV Q24H Sodium Chloride 0.9% [Normal Saline] 1,000 ml IV ASDIRECTED cefTRIAXone [Rocephin] 2 gm Sodium Chloride 0.9% [Normal Saline] 50 ml IV Q8H 12/31/17 00:01 Vital Signs [RC] Q1H Blood Culture x2 Reflex Set [OM.PC] Urgent 12/31/17 00:05 Chest 1V Frontal [CR] Stat 12/31/17 00:07 RT Aerosol Therapy [RC] ASDIRECTED 12/31/17 00:20 CULTURE BLOOD [BC] Urgent 12/31/17 00:25 CULTURE BLOOD [BC] Urgent 12/31/17 01:20 UA W/MICROSCOPIC [URIN] Urgent 12/31/17 01:27 Urinary Catheter Assessment [RC] ASDIRECTED 12/31/17 01:30 Gupta Catheter Insertion [Insert Urinary Catheter] [OM.PC] Q24H 12/31/17 01:45 Oseltamivir [Tamiflu] 75 mg PO BID 12/31/17 02:23 Patient Status Manage Transfer [TRANSFER] Routine 12/31/17 02:25 Resuscitation Status Routine
[2017-12-31] MEDS ORDERED: Albuterol 0.083% 2.5 MG/3 ML Neb Soln NEB PRN (04:14)
[2017-12-31] MEDS ORDERED: Ondansetron 4 MG Tab.DIS PO PRN (04:14)
[2017-12-31] MEDS ORDERED: Ondansetron 4 MG/2 ML SDV IV PRN (04:14)
[2017-12-31] MEDS ORDERED: Docusate Sodium 100 MG Cap PO PRN (04:14)
[2017-12-31] MEDS ORDERED: Acetaminophen 325 MG Tab PO PRN (04:14)
[2017-12-31] MEDS ORDERED: Magnesium Hydroxide 400 MG/5 ML Susp 30 ML Cup PO PRN (04:14)
[2017-12-31] MEDS ORDERED: oxyCODONE 5 MG Tab PO PRN (04:14)
[2017-12-31] MEDS ORDERED: Morphine 2 MG/ML Syringe IVPUSH PRN (04:14)
[2017-12-31] MEDS ORDERED: Triamcinolone Acetonide 0.1% Crm 15 GM Tube TOP PRN (04:14)
[2017-12-31] MEDS ORDERED: Codeine/guaiFENesin 100mg-10 MG/5 ML Syrup 10 ML Cup PO SCH (04:14)
[2017-12-31] MEDS ORDERED: Sodium Chloride 0.9% 1,000 ML IV SCH (04:14)
[2017-12-31] MEDS: Oseltamivir 75 MG Cap PO SCH ×3 (04:49→20:22)
[2017-12-31] MEDS ORDERED: Albuterol/Ipratropium 3.0-0.5 MG/3 ML Neb Soln NEB SCH (06:00)
[2017-12-31] MEDS ORDERED: predniSONE 20 MG Tab PO SCH (08:00)
[2017-12-31] MEDS: Albuterol/Ipratropium 3.0-0.5 MG/3 ML Neb Soln NEB SCH ×4 (08:29→20:25)
[2017-12-31] MEDS: Pantoprazole 40 MG Tab.CR PO SCH (08:52)
[2017-12-31] MEDS ORDERED: Enoxaparin 30 MG/0.3 ML Syringe SUBCUT SCH (09:00)
[2017-12-31] MEDS ORDERED: Pantoprazole 40 MG Vial IVPUSH SCH (09:00)
[2017-12-31] MEDS: Codeine/guaiFENesin 100mg-10 MG/5 ML Syrup 10 ML Cup PO SCH ×3 (09:03→20:23)
--- NOTE | 2017-12-31 09:21 | CR ---
Chest 1V Frontal HISTORY: Cough COMPARISON: 11/22/2017 chest radiograph. FINDINGS: Cardiac size is borderline enlarged. Limited inspiration with crowding of the central pulmo nary vessels. No definite congestive change no definite right-sided infiltrate. The left hemidiaphrag m is not well seen as it was on prior films compatible with left lung base atelectasis or infiltrate. Impression: Obscured left hemidiaphragm compatible with left lung base atelectasis or infiltrate. Would suggest f ollow-up upright PA and lateral chest film in 5-10 days to reevaluate.
--- NOTE | 2017-12-31 09:56 | PCM.PN ---
- General Info Date of Service: 12/31/17 - Review of Systems General: Reports: Fever Systems Review Comment:: Patient has remained very lethargic overnight and startles but falls right back to sleep when I tried to wake him up. He appears comfortable this morning. Supplemental oxygen via noninvasive ventilation has been decreased to 40%. Heart rate has decreased below 100. Blood pressures have been stable. He has not had any more fevers since presentation to the emergency room. White blood cell count is up slightly today. We have been unable to give him any oral medications because of his somnolence and lethargy. - Patient Data Vitals - Most Recent: Last Vital Signs Temp 36.6 C 12/31/17 07:50 Pulse 91 12/31/17 08:31 Resp 21 H 12/31/17 07:50 BP 118/63 12/31/17 07:50 Pulse Ox 95 12/31/17 08:31 Weight - Most Recent: 48.126 kg I&O - Last 24 Hours: Intake & Output 12/30/17 12/31/17 12/31/17 22:59 06:59 14:59 Output Total 675 Balance -675 Lab Results Last 24 Hours: Laboratory Results - last 24 hr 12/31/17 12/31/17 Range/Units 04:30 04:30 WBC 26.3 H (4.5-11.0) K/uL RBC 4.11 L (4.30-5.90) M/uL Hgb 13.1 (12.0-15.0) g/dL Hct 39.7 L (40.0-54.0) % MCV 97 (80-98) fL MCH 32 H (27-31) pg MCHC 33 (32-36) % Plt Count 16 L* (150-400) K/uL Neut % (Auto) 91 H (36-66) % Lymph % (Auto) 3 L (24-44) % Todd % (Auto) 5 (2-6) % Eos % (Auto) 0 L (2-4) % Baso % (Auto) 0 (0-1) % Sodium 137 L (140-148) mmol/L Potassium 3.8 (3.6-5.2) mmol/L Chloride 103 (100-108) mmol/L Carbon Dioxide 27 (21-32) mmol/L Anion Gap 10.8 (5.0-14.0) mmol/L BUN 14 (7-18) mg/dL Creatinine 0.8 (0.8-1.3) mg/dL Est Cr Clr Drug Dosing 103.10 mL/min Estimated GFR (MDRD) > 60 (>60) Glucose 110 H (74-106) mg/dL Calcium 7.6 L (8.5-10.1) mg/dL Med Orders - Current: Current Medications Acetaminophen (Tylenol) 650 mg PO Q4H PRN PRN Reason: Pain (Mild 1-3)/fever Albuterol (Proventil Neb Soln) 2.5 mg NEB Q4H PRN PRN Reason: Shortness Of Breath/wheezing Albuterol/Ipratropium (Duoneb 3.0-0.5 Mg/3 Ml) 3 ml NEB QIDRT [facility] Last Admin: 12/31/17 08:29 Dose: 3 ml Baclofen (Lioresal) 10 mg PO TID [facility] Docusate Sodium (Colace) 100 mg PO BID PRN PRN Reason: Constipation Gabapentin (Neurontin) 600 mg PO BID [facility] Guaifenesin/Codeine Phosphate (Robitussin Ac) 10 ml PO Q6H [facility] Last Admin: 12/31/17 09:03 Dose: Not Given Lorazepam (Ativan) 1 mg IV Q6H PRN PRN Reason: Nausea/Vomiting Magnesium Hydroxide (Milk Of Magnesia) 30 ml PO DAILY PRN PRN Reason: Constipation Morphine Sulfate (Morphine) 2 mg IVPUSH Q2H PRN PRN Reason: Pain (severe 7-10) Ondansetron HCl (Zofran Odt) 4 mg PO Q6H PRN PRN Reason: Nausea able to take PO Ondansetron HCl (Zofran) 4 mg IV Q4H PRN PRN Reason: Nausea/Vomiting Oseltamivir Phosphate (Tamiflu) 75 mg PO BID [facility] Last Admin: 12/31/17 04:49 Dose: Not Given Oxycodone HCl (Oxycodone) 5 mg PO Q4H PRN PRN Reason: Pain (moderate 4-6) Pantoprazole Sodium (Protonix) 40 mg PO ACBREAKFAST [facility] Last Admin: 12/31/17 08:52 Dose: Not Given Phenobarbital (Phenobarbital) 194.4 mg PO BEDTIME [facility] Propranolol HCl (Inderal La) 60 mg PO DAILY [facility] Triamcinolone Acetonide (Triamcinolone Acetonide 0.1% Crm) 0 gm TOP Q8H PRN PRN Reason: itch/seborrhea Discontinued Medications Albuterol/Ipratropium (Duoneb 3.0-0.5 Mg/3 Ml) 3 ml NEB ONETIME ONE Stop: 12/31/17 00:08 Last Admin: 12/31/17 00:26 Dose: 3 ml Enoxaparin Sodium (Lovenox) 30 mg SUBCUT DAILY [facility] Guaifenesin/Codeine Phosphate (Robitussin Ac) 10 ml PO Q6H [facility] Last Admin: 12/31/17 04:50 Dose: Not Given Acetaminophen 1,000 mg/ Premix 100 mls @ 400 mls/hr IV NOW ONE Stop: 12/31/17 00:21 Last Admin: 12/31/17 00:46 Dose: 400 mls/hr Azithromycin 500 mg/ Sodium (Chloride) 250 mls @ 250 mls/hr IV Q24H [facility] Last Admin: 12/31/17 01:06 Dose: 250 mls/hr Ceftriaxone Sodium 2 gm/ (Sodium Chloride) 50 mls @ 100 mls/hr IV Q8H [facility] Last Admin: 12/31/17 00:27 Dose: 100 mls/hr Sodium Chloride (Normal Saline) 1,000 mls @ 999 mls/hr IV ASDIRECTED [facility] Last Admin: 12/31/17 02:24 Dose: 125 mls/hr Piperacillin Sod/Tazobactam (Sod 3.375 gm/ Sodium Chloride) 50 mls @ 100 mls/ hr IV Q6H [facility] Last Admin: 12/31/17 07:40 Dose: Not Given Sodium Chloride (Normal Saline) 1,000 mls @ 125 mls/hr IV ASDIRECTED [facility] Prednisone (Prednisone) 20 mg PO DAILY@0800 [facility] Last Admin: 12/31/17 09:03 Dose: Not Given - Exam Quality Assessment: Supplemental Oxygen General: No Acute Distress. No: Alert Neck: Supple Lungs: Decreased Breath Sounds (left lung base), Crackles (left lung base). No : Normal Respiratory Effort (increased work of breathing ) Cardiovascular: Regular Rate, Regular Rhythm GI/Abdominal Exam: Normal Bowel Sounds, Soft, Non-Tender, No Distention Extremities: No Pedal Edema. No: Increased Warmth Skin: Warm, Dry Psy/Mental Status: Alert, Normal Affect - Problem List Review Problem List Initiated/Reviewed/Updated: Yes - My Orders Last 24 Hours: My Active Orders 12/31/17 10:00 Dextrose 5%-Normal Saline with KCl 20 mEq @ 100 mL/Hr (1000 mL) Dextrose 5%-0.9 % NaCl with KCl [D5 NS with 20 mEq KCl] 1,000 ml IV ASDIRECTED Levofloxacin/Dextrose 5%-Water [Levaquin in D5W 750 MG/150 ML] 750 mg Premix Bag 1 bag IV Q24H cefTAZidime [Fortaz] 1 gm Sodium Chloride 0.9% [Normal Saline] 50 ml IV Q8H methylPREDNISolone Sod Succ [Solu-MEDROL] 40 mg IVPUSH Q8H 01/01/18 05:00 BASIC METABOLIC PANEL,BMP [CHEM] Timed CBC W/O DIFF,HEMOGRAM [HEME] Timed (1) MAGNESIUM [CHEM] Timed - Plan Plan:: ASSESSMENT / PLAN Left lower lobe pneumonia - chest x-ray suggests left lung base infiltrate. Patient has significant hypoxic respiratory failure because of this and has been a very lethargic. With his high fever and half-way residence influenza certainly is in the differential but we have not been able to give him Tamiflu because of his lethargy. He has tolerated the noninvasive ventilation so far. Lactic acid level was normal. -IV Fluids for rehydration NS at 125 mL per hour -Levofloxacin and Ceftazidime -Tamiflu 75mg po bid x 5 days -Noninvasive ventilation as needed -Oxygen to keep oxygen saturation greater than 92% -albuterol nebulizer every 4 hours as needed for wheezing and cough -Duo neb ; scheduled nebulizer every 6 hours ITP - platelets have dropped to 15,000. No evidence for bleeding. -IV steroids Cerebellar ataxia - chronic issue. Seems to be stable at this time. Complicated by spasticity. -Continue home medications Stage III chronic kidney disease - creatinine level near baseline at this time. Maintenance issues - - DVT prophylaxis - mechanical SCD - GI prophylaxis - IV Protonix 40mg - Nutrition - mechanical soft diet - Gupta catheter - placed in the emergency room for strict intake and output monitoring with a critical patient CODE STATUS - DNR/DNI Admission justification - This patient will be admitted for inpatient services and is medically appropriate meeting medical necessity for inpatient admission as outlined in my documentation. I reasonably expect the patient will require inpatient services that span a period time over 2 midnights. I reasonably expect this patient to be discharged or transferred within 96 hours after admission to the Critical [facility]. Disposition - anticipate discharge back to the half-way after the hospital stay Michael Otoole M.D.
[2017-12-31] MEDS ORDERED: methylPREDNISolone Sodium Succinate 125 MG/2 ML SDV IVPUSH SCH (10:00)
[2017-12-31] MEDS: Gabapentin 300 MG Cap PO SCH ×2 (10:06→20:22)
[2017-12-31] MEDS: Baclofen 10 MG Tab PO SCH ×3 (10:06→20:22)
[2017-12-31] MEDS: Propranolol 60 MG Cap.ER PO SCH (10:06)
[2017-12-31] MEDS: Dextrose 5%-0.9% NaCl with KCl 1,000 ML IV SCH ×2 (10:14→22:45)
[2017-12-31] MEDS: methylPREDNISolone Sodium Succinate 40 MG/1 ML SDV IV SCH ×2 (10:33→18:19)
[2017-12-31] MEDS: cefTAZidime 1 GM in Sodium Chloride 0.9% 50 ML IV SCH ×2 (10:33→17:19)
[2017-12-31] MEDS: Levofloxacin/Dextrose 5%-Water 750 MG in Premix Bag 1 BAG IV SCH (11:29)
[2017-12-31] MEDS: LORazepam 2 MG/ML MDV IV PRN (14:06)
[2017-12-31] MEDS: PHENobarbital 32.4 MG Tab PO SCH (20:25)
[2018-01-01] MEDS: cefTAZidime 1 GM in Sodium Chloride 0.9% 50 ML IV SCH ×3 (01:22→18:38)
[2018-01-01] MEDS: Codeine/guaiFENesin 100mg-10 MG/5 ML Syrup 10 ML Cup PO SCH ×4 (01:22→20:28)
[2018-01-01] MEDS: methylPREDNISolone Sodium Succinate 40 MG/1 ML SDV IV SCH ×3 (02:42→18:27)
[2018-01-01] MEDS: Albuterol/Ipratropium 3.0-0.5 MG/3 ML Neb Soln NEB SCH ×4 (07:32→20:29)
[2018-01-01] MEDS: Pantoprazole 40 MG Tab.CR PO SCH (08:26)
[2018-01-01] MEDS: Baclofen 10 MG Tab PO SCH ×3 (08:31→20:29)
[2018-01-01] MEDS: Oseltamivir 75 MG Cap PO SCH ×2 (08:31→20:30)
[2018-01-01] MEDS: Propranolol 60 MG Cap.ER PO SCH (08:31)
[2018-01-01] MEDS: Gabapentin 300 MG Cap PO SCH ×2 (08:31→20:30)
[2018-01-01] MEDS: Dextrose 5%-0.9% NaCl with KCl 1,000 ML IV SCH (09:26)
[2018-01-01] MEDS: Levofloxacin/Dextrose 5%-Water 750 MG in Premix Bag 1 BAG IV SCH (11:24)
--- NOTE | 2018-01-01 14:56 | PCM.PN ---
- General Info Date of Service: 01/01/18 Subjective Update: Mr. Guy is improved since admission approximately 36 hours ago, white blood cell count has come down, oxygen saturations improved, as has fever. Because of his underlying cerebellar ataxia and difficulty with speech she is unable to provide significant information concerning current symptoms or review of systems. - Patient Data Vitals - Most Recent: Last Vital Signs Temp 99.1 F 01/01/18 11:08 Pulse 97 01/01/18 14:47 Resp 18 01/01/18 11:08 BP 156/86 H 01/01/18 11:08 Pulse Ox 97 01/01/18 14:47 Weight - Most Recent: 106 lb 1.6 oz I&O - Last 24 Hours: Intake & Output 12/31/17 01/01/18 01/01/18 22:59 06:59 14:59 Intake Total 1058 1292 1000 Output Total 450 850 600 Balance 608 442 400 Lab Results Last 24 Hours: Laboratory Results - last 24 hr 01/01/18 01/01/18 Range/Units 05:59 05:59 WBC 14.8 H (4.5-11.0) K/uL RBC 4.38 (4.30-5.90) M/uL Hgb 13.7 (12.0-15.0) g/dL Hct 42.4 (40.0-54.0) % MCV 97 (80-98) fL MCH 31 (27-31) pg MCHC 32 (32-36) % Plt Count 14 L* (150-400) K/uL Sodium 141 (140-148) mmol/L Potassium 4.2 (3.6-5.2) mmol/L Chloride 106 (100-108) mmol/L Carbon Dioxide 31 (21-32) mmol/L Anion Gap 4.2 L (5.0-14.0) mmol/L BUN 9 (7-18) mg/dL Creatinine 0.7 L (0.8-1.3) mg/dL Est Cr Clr Drug Dosing 80.21 mL/min Estimated GFR (MDRD) > 60 (>60) Glucose 134 H (74-106) mg/dL Calcium 8.4 L (8.5-10.1) mg/dL Magnesium 1.8 (1.8-2.4) mg/dL Med Orders - Current: Current Medications Acetaminophen (Tylenol) 650 mg PO Q4H PRN PRN Reason: Pain (Mild 1-3)/fever Albuterol (Proventil Neb Soln) 2.5 mg NEB Q4H PRN PRN Reason: Shortness Of Breath/wheezing Albuterol/Ipratropium (Duoneb 3.0-0.5 Mg/3 Ml) 3 ml NEB QIDRT [facility] Last Admin: 01/01/18 14:46 Dose: 3 ml Baclofen (Lioresal) 10 mg PO TID [facility] Last Admin: 01/01/18 14:38 Dose: 10 mg Docusate Sodium (Colace) 100 mg PO BID PRN PRN Reason: Constipation Gabapentin (Neurontin) 600 mg PO BID [facility] Last Admin: 01/01/18 08:31 Dose: 600 mg Guaifenesin/Codeine Phosphate (Robitussin Ac) 10 ml PO Q6H [facility] Last Admin: 01/01/18 14:40 Dose: 10 ml Ceftazidime 1 gm/ Sodium (Chloride) 50 mls @ 100 mls/hr IV Q8H [facility] Last Admin: 01/01/18 09:45 Dose: 100 mls/hr Levofloxacin/Dextrose 750 mg/ (Premix) 150 mls @ 100 mls/hr IV Q24H [facility] Last Admin: 01/01/18 11:24 Dose: 100 mls/hr Lorazepam (Ativan) 1 mg IV Q6H PRN PRN Reason: Nausea/Vomiting Last Admin: 12/31/17 14:06 Dose: 1 mg Magnesium Hydroxide (Milk Of Magnesia) 30 ml PO DAILY PRN PRN Reason: Constipation Methylprednisolone Sodium Succinate (Solu-Medrol) 40 mg IV Q8H [facility] Last Admin: 01/01/18 11:19 Dose: 40 mg Morphine Sulfate (Morphine) 2 mg IVPUSH Q2H PRN PRN Reason: Pain (severe 7-10) Last Admin: 12/31/17 16:36 Dose: 2 mg Ondansetron HCl (Zofran Odt) 4 mg PO Q6H PRN PRN Reason: Nausea able to take PO Ondansetron HCl (Zofran) 4 mg IV Q4H PRN PRN Reason: Nausea/Vomiting Oseltamivir Phosphate (Tamiflu) 75 mg PO BID [facility] Last Admin: 02/02/18 08:31 Dose: 75 mg Oxycodone HCl (Oxycodone) 5 mg PO Q4H PRN PRN Reason: Pain (moderate 4-6) Pantoprazole Sodium (Protonix) 40 mg PO ACBREAKFAST [facility] Last Admin: 01/01/18 08:26 Dose: 40 mg Phenobarbital (Phenobarbital) 194.4 mg PO BEDTIME [facility] Last Admin: 12/31/17 20:25 Dose: 194.4 mg Propranolol HCl (Inderal La) 60 mg PO DAILY [facility] Last Admin: 01/01/18 08:31 Dose: 60 mg Triamcinolone Acetonide (Triamcinolone Acetonide 0.1% Crm) 0 gm TOP Q8H PRN PRN Reason: itch/seborrhea Discontinued Medications Albuterol/Ipratropium (Duoneb 3.0-0.5 Mg/3 Ml) 3 ml NEB ONETIME ONE Stop: 12/31/17 00:08 Last Admin: 12/31/17 00:26 Dose: 3 ml Enoxaparin Sodium (Lovenox) 30 mg SUBCUT DAILY [facility] Guaifenesin/Codeine Phosphate (Robitussin Ac) 10 ml PO Q6H [facility] Last Admin: 12/31/17 04:50 Dose: Not Given Acetaminophen 1,000 mg/ Premix 100 mls @ 400 mls/hr IV NOW ONE Stop: 12/31/17 00:21 Last Admin: 12/31/17 00:46 Dose: 400 mls/hr Azithromycin 500 mg/ Sodium (Chloride) 250 mls @ 250 mls/hr IV Q24H [facility] Last Admin: 12/31/17 01:06 Dose: 250 mls/hr Ceftriaxone Sodium 2 gm/ (Sodium Chloride) 50 mls @ 100 mls/hr IV Q8H [facility] Last Admin: 12/31/17 10:15 Dose: Not Given Sodium Chloride (Normal Saline) 1,000 mls @ 999 mls/hr IV ASDIRECTED [facility] Last Admin: 12/31/17 02:24 Dose: 125 mls/hr Piperacillin Sod/Tazobactam (Sod 3.375 gm/ Sodium Chloride) 50 mls @ 100 mls/ hr IV Q6H [facility] Last Admin: 12/31/17 07:40 Dose: Not Given Sodium Chloride (Normal Saline) 1,000 mls @ 125 mls/hr IV ASDIRECTED [facility] Potassium Chloride/Dextrose/Sod Cl (D5 Ns With 20 Meq Kcl) 1,000 mls @ 100 mls/ hr IV ASDIRECTED [facility] Last Admin: 01/01/18 09:26 Dose: 100 mls/hr Prednisone (Prednisone) 20 mg PO DAILY@0800 [facility] Last Admin: 12/31/17 09:03 Dose: Not Given - Exam Quality Assessment: Supplemental Oxygen, DVT Prophylaxis General: Alert, Cooperative, Mild Distress Lungs: Normal Respiratory Effort, Rhonchi, Wheezing Cardiovascular: Regular Rate, Regular Rhythm, No Murmurs GI/Abdominal Exam: Soft, Non-Tender, No Organomegaly, No Distention Extremities: Non-Tender, No Pedal Edema Skin: Warm, Dry - Problem List Review Problem List Initiated/Reviewed/Updated: Yes - My Orders Last 24 Hours: My Active Orders 01/01/18 14:51 Convert IV to Saline Lock [OM.PC] Routine 01/02/18 05:00 BASIC METABOLIC PANEL,BMP [CHEM] Timed CBC WITH AUTO DIFF [HEME] Timed MAGNESIUM [CHEM] Timed - Plan Plan:: ASSESSMENT / PLAN Left lower lobe pneumonia - chest x-ray suggests left lung base infiltrate. Improved since admission, requiring less respiratory support. White blood cell count has improved significantly over the past 36 hours -Saline lock IV -Levofloxacin and Ceftazidime -Tamiflu 75mg po bid x 5 days -Noninvasive ventilation as needed -Oxygen to keep oxygen saturation greater than 92% -albuterol nebulizer every 4 hours as needed for wheezing and cough -Duo neb ; scheduled nebulizer every 6 hours ITP - platelets have dropped to 14,000. No evidence for bleeding. -IV steroids Cerebellar ataxia - chronic issue. Seems to be stable at this time. Complicated by spasticity. -Continue home medications Stage III chronic kidney disease - creatinine level near baseline at this time. Maintenance issues - - DVT prophylaxis - mechanical SCD - GI prophylaxis - IV Protonix 40mg - Nutrition - mechanical soft diet - Gupta catheter - discontinue CODE STATUS - DNR/DNI Admission justification - This patient will be admitted for inpatient services and is medically appropriate meeting medical necessity for inpatient admission as outlined in my documentation. I reasonably expect the patient will require inpatient services that span a period time over 2 midnights. I reasonably expect this patient to be discharged or transferred within 96 hours [facility] Disposition - anticipate discharge back to the custodial after the hospital stay
[2018-01-01] MEDS: LORazepam 2 MG/ML MDV IV PRN (16:30)
[2018-01-01] MEDS: PHENobarbital 32.4 MG Tab PO SCH (20:33)
[2018-01-02] MEDS: methylPREDNISolone Sodium Succinate 40 MG/1 ML SDV IV SCH ×3 (02:01→17:47)
[2018-01-02] MEDS: cefTAZidime 1 GM in Sodium Chloride 0.9% 50 ML IV SCH ×3 (02:01→17:47)
[2018-01-02] MEDS: Codeine/guaiFENesin 100mg-10 MG/5 ML Syrup 10 ML Cup PO SCH ×4 (02:02→20:10)
[2018-01-02] MEDS: Albuterol/Ipratropium 3.0-0.5 MG/3 ML Neb Soln NEB SCH ×4 (07:26→20:12)
[2018-01-02] MEDS: Oseltamivir 75 MG Cap PO SCH ×2 (08:55→20:13)
[2018-01-02] MEDS: Baclofen 10 MG Tab PO SCH ×3 (08:55→20:13)
[2018-01-02] MEDS: Pantoprazole 40 MG Tab.CR PO SCH (08:56)
[2018-01-02] MEDS: Propranolol 60 MG Cap.ER PO SCH (08:56)
[2018-01-02] MEDS: Gabapentin 300 MG Cap PO SCH ×2 (08:56→20:13)
[2018-01-02] MEDS ORDERED: Magnesium Sulfate/Water 2 GM in Premix Bag 1 BAG IV ONE (09:00)
--- NOTE | 2018-01-02 11:12 | PCM.PN ---
- General Info Date of Service: 01/02/18 Subjective Update: Deon has required ongoing supplemental oxygen and intermittent use of BiPAP over the past 24 hours. Vital signs have been stable and he has remained afebrile. Because of his cerebellar ataxia is not able to speak or provide information concerning current symptoms or review of systems. - Patient Data Vitals - Most Recent: Last Vital Signs Temp 97.0 F 01/02/18 10:58 Pulse 80 01/02/18 10:58 Resp 18 01/02/18 10:58 BP 145/87 H 01/02/18 10:58 Pulse Ox 92 L 01/02/18 10:58 Weight - Most Recent: 106 lb 1.6 oz I&O - Last 24 Hours: Intake & Output 01/01/18 01/02/18 01/02/18 22:59 06:59 14:59 Intake Total 1929 50 0 Output Total 1150 Balance 779 50 0 Lab Results Last 24 Hours: Laboratory Results - last 24 hr 01/02/18 01/02/18 Range/Units 04:59 04:59 WBC 13.8 H (4.5-11.0) K/uL RBC 4.45 (4.30-5.90) M/uL Hgb 14.1 (12.0-15.0) g/dL Hct 42.1 (40.0-54.0) % MCV 95 (80-98) fL MCH 32 H (27-31) pg MCHC 34 (32-36) % Plt Count 46 L (150-400) K/uL Neut % (Auto) 89 H (36-66) % Lymph % (Auto) 4 L (24-44) % [place] % (Auto) 4 (2-6) % Eos % (Auto) 3 (2-4) % Baso % (Auto) 0 (0-1) % Sodium 143 (140-148) mmol/L Potassium 4.3 (3.6-5.2) mmol/L Chloride 105 (100-108) mmol/L Carbon Dioxide 29 (21-32) mmol/L Anion Gap 8.6 (5.0-14.0) mmol/L BUN 10 (7-18) mg/dL Creatinine 0.7 L (0.8-1.3) mg/dL Est Cr Clr Drug Dosing 80.21 mL/min Estimated GFR (MDRD) > 60 (>60) Glucose 128 H (74-106) mg/dL Calcium 8.5 (8.5-10.1) mg/dL Magnesium 1.7 L (1.8-2.4) mg/dL Med Orders - Current: Current Medications Acetaminophen (Tylenol) 650 mg PO Q4H PRN PRN Reason: Pain (Mild 1-3)/fever Albuterol (Proventil Neb Soln) 2.5 mg NEB Q4H PRN PRN Reason: Shortness Of Breath/wheezing Albuterol/Ipratropium (Duoneb 3.0-0.5 Mg/3 Ml) 3 ml NEB QIDRT [facility] Last Admin: 01/02/18 07:26 Dose: 3 ml Baclofen (Lioresal) 10 mg PO TID [facility] Last Admin: 01/02/18 08:55 Dose: 10 mg Docusate Sodium (Colace) 100 mg PO BID PRN PRN Reason: Constipation Gabapentin (Neurontin) 600 mg PO BID [facility] Last Admin: 01/02/18 08:56 Dose: 600 mg Guaifenesin/Codeine Phosphate (Robitussin Ac) 10 ml PO Q6H [facility] Last Admin: 01/02/18 09:02 Dose: 10 ml Ceftazidime 1 gm/ Sodium (Chloride) 50 mls @ 100 mls/hr IV Q8H [facility] Last Admin: 01/02/18 02:01 Dose: 100 mls/hr Levofloxacin/Dextrose 750 mg/ (Premix) 150 mls @ 100 mls/hr IV Q24H [facility] Last Admin: 01/01/18 11:24 Dose: 100 mls/hr Lorazepam (Ativan) 1 mg IV Q6H PRN PRN Reason: Nausea/Vomiting Last Admin: 01/01/18 16:30 Dose: 1 mg Magnesium Hydroxide (Milk Of Magnesia) 30 ml PO DAILY PRN PRN Reason: Constipation Methylprednisolone Sodium Succinate (Solu-Medrol) 40 mg IV Q8H [facility] Last Admin: 01/02/18 02:01 Dose: 40 mg Morphine Sulfate (Morphine) 2 mg IVPUSH Q2H PRN PRN Reason: Pain (severe 7-10) Last Admin: 12/31/17 16:36 Dose: 2 mg Ondansetron HCl (Zofran Odt) 4 mg PO Q6H PRN PRN Reason: Nausea able to take PO Ondansetron HCl (Zofran) 4 mg IV Q4H PRN PRN Reason: Nausea/Vomiting Oseltamivir Phosphate (Tamiflu) 75 mg PO BID [facility] Last Admin: 01/02/18 08:55 Dose: 75 mg Oxycodone HCl (Oxycodone) 5 mg PO Q4H PRN PRN Reason: Pain (moderate 4-6) Pantoprazole Sodium (Protonix) 40 mg PO ACBREAKFAST [facility] Last Admin: 01/02/18 08:56 Dose: 40 mg Phenobarbital (Phenobarbital) 194.4 mg PO BEDTIME [facility] Last Admin: 01/01/18 20:33 Dose: 194.4 mg Propranolol HCl (Inderal La) 60 mg PO DAILY [facility] Last Admin: 01/02/18 08:56 Dose: 60 mg Triamcinolone Acetonide (Triamcinolone Acetonide 0.1% Crm) 0 gm TOP Q8H PRN PRN Reason: itch/seborrhea Discontinued Medications Albuterol/Ipratropium (Duoneb 3.0-0.5 Mg/3 Ml) 3 ml NEB ONETIME ONE Stop: 12/31/17 00:08 Last Admin: 12/31/17 00:26 Dose: 3 ml Enoxaparin Sodium (Lovenox) 30 mg SUBCUT DAILY [facility] Guaifenesin/Codeine Phosphate (Robitussin Ac) 10 ml PO Q6H [facility] Last Admin: 12/31/17 04:50 Dose: Not Given Acetaminophen 1,000 mg/ Premix 100 mls @ 400 mls/hr IV NOW ONE Stop: 12/31/17 00:21 Last Admin: 12/31/17 00:46 Dose: 400 mls/hr Azithromycin 500 mg/ Sodium (Chloride) 250 mls @ 250 mls/hr IV Q24H [facility] Last Admin: 12/31/17 01:06 Dose: 250 mls/hr Ceftriaxone Sodium 2 gm/ (Sodium Chloride) 50 mls @ 100 mls/hr IV Q8H [facility] Last Admin: 12/31/17 10:15 Dose: Not Given Sodium Chloride (Normal Saline) 1,000 mls @ 999 mls/hr IV ASDIRECTED [facility] Last Admin: 12/31/17 02:24 Dose: 125 mls/hr Piperacillin Sod/Tazobactam (Sod 3.375 gm/ Sodium Chloride) 50 mls @ 100 mls/ hr IV Q6H [facility] Last Admin: 12/31/17 07:40 Dose: Not Given Sodium Chloride (Normal Saline) 1,000 mls @ 125 mls/hr IV ASDIRECTED [facility] Potassium Chloride/Dextrose/Sod Cl (D5 Ns With 20 Meq Kcl) 1,000 mls @ 100 mls/ hr IV ASDIRECTED [facility] Last Admin: 01/01/18 09:26 Dose: 100 mls/hr Magnesium Sulfate 2 gm/ Premix 50 mls @ 25 mls/hr IV ONETIME ONE Stop: 01/02/18 10:59 Last Admin: 01/02/18 08:57 Dose: 25 mls/hr Prednisone (Prednisone) 20 mg PO DAILY@0800 [facility] Last Admin: 12/31/17 09:03 Dose: Not Given - Exam Quality Assessment: Supplemental Oxygen, DVT Prophylaxis General: Alert, Cooperative, Mild Distress Lungs: Normal Respiratory Effort, Rhonchi. No: Crackles, Rales, Wheezing Cardiovascular: Regular Rate, Regular Rhythm, No Murmurs GI/Abdominal Exam: Soft, Non-Tender, No Organomegaly, No Distention Extremities: Non-Tender, No Pedal Edema Skin: Warm, Dry, Intact - Problem List Review Problem List Initiated/Reviewed/Updated: Yes - My Orders Last 24 Hours: My Active Orders 01/01/18 14:51 Convert IV to Saline Lock [OM.PC] Routine 01/03/18 05:00 BASIC METABOLIC PANEL,BMP [CHEM] Timed CBC WITH AUTO DIFF [HEME] Timed MAGNESIUM [CHEM] Timed - Plan Plan:: ASSESSMENT / PLAN Left lower lobe pneumonia - chest x-ray suggests left lung base infiltrate. Continues to require supplemental oxygen to maintain adequate saturations as well as intermittent BiPAP. White blood cell count remains mildly to moderately elevated -Saline lock IV -Levofloxacin and Ceftazidime -Tamiflu 75mg po bid x 5 days -Noninvasive ventilation as needed -Oxygen to keep oxygen saturation greater than 92% -albuterol nebulizer every 4 hours as needed for wheezing and cough -Duo neb ; scheduled nebulizer every 6 hours ITP - platelet count has improved to 46,000 today -IV steroids Cerebellar ataxia - chronic issue. Seems to be stable at this time. Complicated by spasticity. -Continue home medications Stage III chronic kidney disease - creatinine level near baseline at this time. Maintenance issues - - DVT prophylaxis - mechanical SCD - GI prophylaxis - IV Protonix 40mg - Nutrition - mechanical soft diet - Gupta catheter - discontinue CODE STATUS - DNR/DNI Admission justification - This patient will be admitted for inpatient services and is medically appropriate meeting medical necessity for inpatient admission as outlined in my documentation. I reasonably expect the patient will require inpatient services that span a period time over 2 midnights. I reasonably expect this patient to be discharged or transferred within 96 hours after admission to the [facility]. Disposition - [facility] after the hospital stay
[2018-01-02] MEDS: Levofloxacin/Dextrose 5%-Water 750 MG in Premix Bag 1 BAG IV SCH (12:31)
[2018-01-02] MEDS: PHENobarbital 32.4 MG Tab PO SCH (20:15)
[2018-01-03] MEDS: cefTAZidime 1 GM in Sodium Chloride 0.9% 50 ML IV SCH ×3 (01:09→17:32)
[2018-01-03] MEDS: Codeine/guaiFENesin 100mg-10 MG/5 ML Syrup 10 ML Cup PO SCH ×4 (01:10→20:24)
[2018-01-03] MEDS: methylPREDNISolone Sodium Succinate 40 MG/1 ML SDV IV SCH ×3 (01:31→09:34)
[2018-01-03] MEDS: Albuterol/Ipratropium 3.0-0.5 MG/3 ML Neb Soln NEB SCH ×4 (07:49→20:24)
[2018-01-03] MEDS: Oseltamivir 75 MG Cap PO SCH ×2 (09:25→20:24)
[2018-01-03] MEDS: Pantoprazole 40 MG Tab.CR PO SCH (09:26)
[2018-01-03] MEDS: Gabapentin 300 MG Cap PO SCH ×2 (09:26→20:24)
[2018-01-03] MEDS: Baclofen 10 MG Tab PO SCH ×3 (09:26→20:24)
[2018-01-03] MEDS: Propranolol 60 MG Cap.ER PO SCH (09:27)
--- NOTE | 2018-01-03 09:42 | PCM.PN ---
- General Info Date of Service: 01/03/18 Subjective Update: Deon has been fairly stable since yesterday, continues to intermittently require use of BiPAP especially while sleeping. Saturation seem to have improved, white blood cell count has normalized. Because of his cerebellar ataxia he's unable to answer specific questions or provide information concerning review of systems. Functional Status: Reports: Tolerating Diet, Urinating - Review of Systems General: Denies: Fever, Chills - Patient Data Vitals - Most Recent: Last Vital Signs Temp 97.9 F 01/03/18 07:43 Pulse 79 01/03/18 07:49 Resp 16 01/03/18 07:43 BP 110/80 01/03/18 07:43 Pulse Ox 98 01/03/18 07:49 Weight - Most Recent: 106 lb 1.6 oz I&O - Last 24 Hours: Intake & Output 01/02/18 01/03/18 01/03/18 22:59 06:59 14:59 Intake Total 400 50 Balance 400 50 Lab Results Last 24 Hours: Laboratory Results - last 24 hr 01/03/18 01/03/18 Range/Units 04:15 04:15 WBC 10.0 (4.5-11.0) K/uL RBC 4.54 (4.30-5.90) M/uL Hgb 14.0 (12.0-15.0) g/dL Hct 43.4 (40.0-54.0) % MCV 96 (80-98) fL MCH 31 (27-31) pg MCHC 32 (32-36) % Plt Count 14 L* (150-400) K/uL Neut % (Auto) 89 H (36-66) % Lymph % (Auto) 6 L (24-44) % [place] % (Auto) 5 (2-6) % Eos % (Auto) 0 L (2-4) % Baso % (Auto) 0 (0-1) % Sodium 142 (140-148) mmol/L Potassium 4.3 (3.6-5.2) mmol/L Chloride 105 (100-108) mmol/L Carbon Dioxide 29 (21-32) mmol/L Anion Gap 7.6 (5.0-14.0) mmol/L BUN 10 (7-18) mg/dL Creatinine 0.8 (0.8-1.3) mg/dL Est Cr Clr Drug Dosing 70.18 mL/min Estimated GFR (MDRD) > 60 (>60) Glucose 122 H (74-106) mg/dL Calcium 8.4 L (8.5-10.1) mg/dL Magnesium 1.9 (1.8-2.4) mg/dL Med Orders - Current: Current Medications Acetaminophen (Tylenol) 650 mg PO Q4H PRN PRN Reason: Pain (Mild 1-3)/fever Albuterol (Proventil Neb Soln) 2.5 mg NEB Q4H PRN PRN Reason: Shortness Of Breath/wheezing Albuterol/Ipratropium (Duoneb 3.0-0.5 Mg/3 Ml) 3 ml NEB QIDRT [facility] Last Admin: 01/03/18 07:49 Dose: 3 ml Baclofen (Lioresal) 10 mg PO TID [facility] Last Admin: 01/03/18 09:26 Dose: 10 mg Docusate Sodium (Colace) 100 mg PO BID PRN PRN Reason: Constipation Gabapentin (Neurontin) 600 mg PO BID [facility] Last Admin: 01/03/18 09:26 Dose: 600 mg Guaifenesin/Codeine Phosphate (Robitussin Ac) 10 ml PO Q6H [facility] Last Admin: 01/03/18 09:29 Dose: 10 ml Ceftazidime 1 gm/ Sodium (Chloride) 50 mls @ 100 mls/hr IV Q8H [facility] Last Admin: 01/03/18 01:09 Dose: 100 mls/hr Levofloxacin/Dextrose 750 mg/ (Premix) 150 mls @ 100 mls/hr IV Q24H [facility] Last Admin: 01/02/18 12:31 Dose: 100 mls/hr Lorazepam (Ativan) 1 mg IV Q6H PRN PRN Reason: Nausea/Vomiting Last Admin: 01/01/18 16:30 Dose: 1 mg Magnesium Hydroxide (Milk Of Magnesia) 30 ml PO DAILY PRN PRN Reason: Constipation Morphine Sulfate (Morphine) 2 mg IVPUSH Q2H PRN PRN Reason: Pain (severe 7-10) Last Admin: 12/31/17 16:36 Dose: 2 mg Ondansetron HCl (Zofran Odt) 4 mg PO Q6H PRN PRN Reason: Nausea able to take PO Ondansetron HCl (Zofran) 4 mg IV Q4H PRN PRN Reason: Nausea/Vomiting Oseltamivir Phosphate (Tamiflu) 75 mg PO BID [facility] Last Admin: 01/03/18 09:25 Dose: 75 mg Oxycodone HCl (Oxycodone) 5 mg PO Q4H PRN PRN Reason: Pain (moderate 4-6) Pantoprazole Sodium (Protonix) 40 mg PO ACBREAKFAST [facility] Last Admin: 01/03/18 09:26 Dose: 40 mg Phenobarbital (Phenobarbital) 194.4 mg PO BEDTIME [facility] Last Admin: 01/02/18 20:15 Dose: 194.4 mg Prednisone (Prednisone) 20 mg PO DAILY [facility] Propranolol HCl (Inderal La) 60 mg PO DAILY [facility] Last Admin: 01/03/18 09:27 Dose: 60 mg Triamcinolone Acetonide (Triamcinolone Acetonide 0.1% Crm) 0 gm TOP Q8H PRN PRN Reason: itch/seborrhea Discontinued Medications Albuterol/Ipratropium (Duoneb 3.0-0.5 Mg/3 Ml) 3 ml NEB ONETIME ONE Stop: 12/31/17 00:08 Last Admin: 12/31/17 00:26 Dose: 3 ml Enoxaparin Sodium (Lovenox) 30 mg SUBCUT DAILY [facility] Guaifenesin/Codeine Phosphate (Robitussin Ac) 10 ml PO Q6H [facility] Last Admin: 12/31/17 04:50 Dose: Not Given Acetaminophen 1,000 mg/ Premix 100 mls @ 400 mls/hr IV NOW ONE Stop: 12/31/17 00:21 Last Admin: 12/31/17 00:46 Dose: 400 mls/hr Azithromycin 500 mg/ Sodium (Chloride) 250 mls @ 250 mls/hr IV Q24H [facility] Last Admin: 12/31/17 01:06 Dose: 250 mls/hr Ceftriaxone Sodium 2 gm/ (Sodium Chloride) 50 mls @ 100 mls/hr IV Q8H [facility] Last Admin: 12/31/17 10:15 Dose: Not Given Sodium Chloride (Normal Saline) 1,000 mls @ 999 mls/hr IV ASDIRECTED [facility] Last Admin: 12/31/17 02:24 Dose: 125 mls/hr Piperacillin Sod/Tazobactam (Sod 3.375 gm/ Sodium Chloride) 50 mls @ 100 mls/ hr IV Q6H [facility] Last Admin: 12/31/17 07:40 Dose: Not Given Sodium Chloride (Normal Saline) 1,000 mls @ 125 mls/hr IV ASDIRECTED [facility] Potassium Chloride/Dextrose/Sod Cl (D5 Ns With 20 Meq Kcl) 1,000 mls @ 100 mls/ hr IV ASDIRECTED [facility] Last Admin: 01/01/18 09:26 Dose: 100 mls/hr Magnesium Sulfate 2 gm/ Premix 50 mls @ 25 mls/hr IV ONETIME ONE Stop: 01/02/18 10:59 Last Admin: 01/02/18 08:57 Dose: 25 mls/hr Methylprednisolone Sodium Succinate (Solu-Medrol) 40 mg IV Q8H [facility] Last Admin: 01/03/18 09:34 Dose: Not Given Prednisone (Prednisone) 20 mg PO DAILY@0800 [facility] Last Admin: 12/31/17 09:03 Dose: Not Given - Exam Quality Assessment: Supplemental Oxygen, DVT Prophylaxis General: Cooperative, Mild Distress Lungs: Rhonchi. No: Crackles, Rales, Rub, Stridor, Wheezing Cardiovascular: Regular Rate, Regular Rhythm, No Murmurs GI/Abdominal Exam: Soft, Non-Tender, No Organomegaly, No Distention Extremities: Non-Tender, No Pedal Edema Skin: Warm, Dry - Problem List Review Problem List Initiated/Reviewed/Updated: Yes - My Orders Last 24 Hours: My Active Orders 01/03/18 09:45 predniSONE 20 mg PO DAILY 01/04/18 05:00 CBC WITH AUTO DIFF [HEME] Timed - Plan Plan:: ASSESSMENT / PLAN Left lower lobe pneumonia - chest x-ray suggests left lung base infiltrate. Continues to require supplemental oxygen to maintain adequate saturations as well as intermittent BiPAP. White blood cell count has normalized -Saline lock IV -Levofloxacin and Ceftazidime -Tamiflu 75mg po bid x 5 days -Noninvasive ventilation as needed -Oxygen to keep oxygen saturation greater than 92% -albuterol nebulizer every 4 hours as needed for wheezing and cough -Duo neb ; scheduled nebulizer every 6 hours ITP - platelet count low today at 14,000 -Oral prednisone Cerebellar ataxia - chronic issue. Seems to be stable at this time. Complicated by spasticity. -Continue home medications Stage III chronic kidney disease - creatinine level near baseline at this time. Maintenance issues - - DVT prophylaxis - mechanical SCD - GI prophylaxis - IV Protonix 40mg - Nutrition - mechanical soft diet - Gupta catheter - discontinue CODE STATUS - DNR/DNI Admission justification - This patient will be admitted for inpatient services and is medically appropriate meeting medical necessity for inpatient admission as outlined in my documentation. I reasonably expect the patient will require inpatient services that span a period time over 2 midnights. I reasonably expect this patient to be discharged or transferred within 96 hours after admission to the [facility]. Disposition - anticipate discharge back to the intermediate after the hospital stay
[2018-01-03] MEDS: predniSONE 20 MG Tab PO SCH (10:33)
[2018-01-03] MEDS: Levofloxacin/Dextrose 5%-Water 750 MG in Premix Bag 1 BAG IV SCH (12:16)
[2018-01-03] MEDS: PHENobarbital 32.4 MG Tab PO SCH (20:24)
[2018-01-04] MEDS: Codeine/guaiFENesin 100mg-10 MG/5 ML Syrup 10 ML Cup PO SCH ×4 (01:13→20:46)
[2018-01-04] MEDS: cefTAZidime 1 GM in Sodium Chloride 0.9% 50 ML IV SCH ×2 (01:13→09:00)
[2018-01-04] MEDS: Albuterol/Ipratropium 3.0-0.5 MG/3 ML Neb Soln NEB SCH ×4 (07:18→20:45)
[2018-01-04] MEDS: Pantoprazole 40 MG Tab.CR PO SCH (07:57)
[2018-01-04] MEDS: Propranolol 60 MG Cap.ER PO SCH (08:01)
[2018-01-04] MEDS: Oseltamivir 75 MG Cap PO SCH (08:01)
[2018-01-04] MEDS: Baclofen 10 MG Tab PO SCH ×3 (08:01→20:46)
[2018-01-04] MEDS: predniSONE 20 MG Tab PO SCH (08:01)
[2018-01-04] MEDS: Gabapentin 300 MG Cap PO SCH ×2 (08:01→20:47)
--- NOTE | 2018-01-04 10:12 | PCM.PN ---
- General Info Date of Service: 01/04/18 Subjective Update: Mr. Guy has done well over the past 24 hours, currently on room air with adequate oxygenation. He has used the BiPAP only a very small amount of time over the past 24 hours. Platelet count is at 10,000 but he has no evidence of active bleeding. - Patient Data Vitals - Most Recent: Last Vital Signs Temp 97.2 F 01/04/18 07:00 Pulse 101 H 01/04/18 07:00 Resp 20 01/04/18 07:00 BP 138/83 01/04/18 07:00 Pulse Ox 93 L 01/04/18 07:00 Weight - Most Recent: 192 lb 15.988 oz I&O - Last 24 Hours: Intake & Output 01/03/18 01/04/18 01/04/18 22:59 06:59 14:59 Intake Total 720 50 530 Balance 720 50 530 Lab Results Last 24 Hours: Laboratory Results - last 24 hr 01/04/18 Range/Units 05:10 WBC 8.9 (4.5-11.0) K/uL RBC 4.77 (4.30-5.90) M/uL Hgb 15.0 (12.0-15.0) g/dL Hct 45.3 (40.0-54.0) % MCV 95 (80-98) fL MCH 31 (27-31) pg MCHC 33 (32-36) % Plt Count 10 L* (150-400) K/uL Neut % (Auto) 73 H (36-66) % Lymph % (Auto) 15 L (24-44) % [place] % (Auto) 11 H (2-6) % Eos % (Auto) 2 (2-4) % Baso % (Auto) 0 (0-1) % Med Orders - Current: Current Medications Acetaminophen (Tylenol) 650 mg PO Q4H PRN PRN Reason: Pain (Mild 1-3)/fever Albuterol (Proventil Neb Soln) 2.5 mg NEB Q4H PRN PRN Reason: Shortness Of Breath/wheezing Albuterol/Ipratropium (Duoneb 3.0-0.5 Mg/3 Ml) 3 ml NEB QIDRT [facility] Last Admin: 01/04/18 07:18 Dose: 3 ml Baclofen (Lioresal) 10 mg PO TID [facility] Last Admin: 01/04/18 08:01 Dose: 10 mg Docusate Sodium (Colace) 100 mg PO BID PRN PRN Reason: Constipation Gabapentin (Neurontin) 600 mg PO BID [facility] Last Admin: 01/04/18 08:01 Dose: 600 mg Guaifenesin/Codeine Phosphate (Robitussin Ac) 10 ml PO Q6H [facility] Last Admin: 01/04/18 07:58 Dose: 10 ml Ceftazidime 1 gm/ Sodium (Chloride) 50 mls @ 100 mls/hr IV Q8H [facility] Last Admin: 01/04/18 09:00 Dose: 100 mls/hr Levofloxacin/Dextrose 750 mg/ (Premix) 150 mls @ 100 mls/hr IV Q24H [facility] Last Admin: 01/03/18 12:16 Dose: 100 mls/hr Lorazepam (Ativan) 1 mg IV Q6H PRN PRN Reason: Nausea/Vomiting Last Admin: 01/01/18 16:30 Dose: 1 mg Magnesium Hydroxide (Milk Of Magnesia) 30 ml PO DAILY PRN PRN Reason: Constipation Morphine Sulfate (Morphine) 2 mg IVPUSH Q2H PRN PRN Reason: Pain (severe 7-10) Last Admin: 12/31/17 16:36 Dose: 2 mg Ondansetron HCl (Zofran Odt) 4 mg PO Q6H PRN PRN Reason: Nausea able to take PO Ondansetron HCl (Zofran) 4 mg IV Q4H PRN PRN Reason: Nausea/Vomiting Oxycodone HCl (Oxycodone) 5 mg PO Q4H PRN PRN Reason: Pain (moderate 4-6) Pantoprazole Sodium (Protonix) 40 mg PO ACBREAKFAST [facility] Last Admin: 01/04/18 07:57 Dose: 40 mg Phenobarbital (Phenobarbital) 194.4 mg PO BEDTIME [facility] Last Admin: 01/03/18 20:24 Dose: 194.4 mg Prednisone (Prednisone) 20 mg PO DAILY [facility] Last Admin: 01/04/18 08:01 Dose: 20 mg Propranolol HCl (Inderal La) 60 mg PO DAILY [facility] Last Admin: 01/04/18 08:01 Dose: 60 mg Triamcinolone Acetonide (Triamcinolone Acetonide 0.1% Crm) 0 gm TOP Q8H PRN PRN Reason: itch/seborrhea Discontinued Medications Albuterol/Ipratropium (Duoneb 3.0-0.5 Mg/3 Ml) 3 ml NEB ONETIME ONE Stop: 12/31/17 00:08 Last Admin: 12/31/17 00:26 Dose: 3 ml Enoxaparin Sodium (Lovenox) 30 mg SUBCUT DAILY [facility] Guaifenesin/Codeine Phosphate (Robitussin Ac) 10 ml PO Q6H [facility] Last Admin: 12/31/17 04:50 Dose: Not Given Acetaminophen 1,000 mg/ Premix 100 mls @ 400 mls/hr IV NOW ONE Stop: 12/31/17 00:21 Last Admin: 12/31/17 00:46 Dose: 400 mls/hr Azithromycin 500 mg/ Sodium (Chloride) 250 mls @ 250 mls/hr IV Q24H [facility] Last Admin: 12/31/17 01:06 Dose: 250 mls/hr Ceftriaxone Sodium 2 gm/ (Sodium Chloride) 50 mls @ 100 mls/hr IV Q8H [facility] Last Admin: 12/31/17 10:15 Dose: Not Given Sodium Chloride (Normal Saline) 1,000 mls @ 999 mls/hr IV ASDIRECTED [facility] Last Admin: 12/31/17 02:24 Dose: 125 mls/hr Piperacillin Sod/Tazobactam (Sod 3.375 gm/ Sodium Chloride) 50 mls @ 100 mls/ hr IV Q6H [facility] Last Admin: 12/31/17 07:40 Dose: Not Given Sodium Chloride (Normal Saline) 1,000 mls @ 125 mls/hr IV ASDIRECTED [facility] Potassium Chloride/Dextrose/Sod Cl (D5 Ns With 20 Meq Kcl) 1,000 mls @ 100 mls/ hr IV ASDIRECTED [facility] Last Admin: 01/01/18 09:26 Dose: 100 mls/hr Magnesium Sulfate 2 gm/ Premix 50 mls @ 25 mls/hr IV ONETIME ONE Stop: 01/02/18 10:59 Last Admin: 01/02/18 08:57 Dose: 25 mls/hr Methylprednisolone Sodium Succinate (Solu-Medrol) 40 mg IV Q8H [facility] Last Admin: 01/03/18 09:34 Dose: Not Given Oseltamivir Phosphate (Tamiflu) 75 mg PO BID [facility] Stop: 01/04/18 09:01 Last Admin: 01/04/18 08:01 Dose: 75 mg Prednisone (Prednisone) 20 mg PO DAILY@0800 [facility] Last Admin: 12/31/17 09:03 Dose: Not Given - Exam Quality Assessment: DVT Prophylaxis. No: Supplemental Oxygen General: Alert, Cooperative, No Acute Distress Lungs: Clear to Auscultation, Normal Respiratory Effort Cardiovascular: Regular Rate, Regular Rhythm, No Murmurs GI/Abdominal Exam: Soft, Non-Tender, No Organomegaly, No Distention Extremities: Non-Tender, No Pedal Edema Skin: Warm, Dry - Problem List Review Problem List Initiated/Reviewed/Updated: Yes - My Orders Last 24 Hours: My Active Orders 01/03/18 10:00 predniSONE 20 mg PO DAILY - Plan Plan:: ASSESSMENT / PLAN Left lower lobe pneumonia - chest x-ray suggests left lung base infiltrate. Oxygenation has improved over the past 24 hours, no longer requiring supplemental oxygen or regular use of -Saline lock IV -Levofloxacin 750 mg by mouth daily -Discontinue ceftriaxone -Tamiflu 75mg po bid x 5 days will be completed today -albuterol nebulizer every 4 hours as needed for wheezing and cough -Duo neb ; scheduled nebulizer every 6 hours ITP - platelet count remains low but no evidence of active bleeding -Oral prednisone Cerebellar ataxia - chronic issue. Seems to be stable at this time. Complicated by spasticity. -Continue home medications Stage III chronic kidney disease - creatinine level near baseline at this time. Maintenance issues - - DVT prophylaxis - mechanical SCD - GI prophylaxis - IV Protonix 40mg - Nutrition - mechanical soft diet - Gupta catheter - discontinue CODE STATUS - DNR/DNI Admission justification - This patient will be admitted for inpatient services and is medically appropriate meeting medical necessity for inpatient admission as outlined in my documentation. I reasonably expect the patient will require inpatient services that span a period time over 2 midnights. I reasonably expect this patient to be discharged or transferred within 96 hours [facility] Disposition - [facility] after the hospital stay
[2018-01-04] MEDS: LORazepam 2 MG/ML MDV IV PRN (17:39)
[2018-01-04] MEDS: PHENobarbital 32.4 MG Tab PO SCH (20:46)
[2018-01-05] MEDS: Codeine/guaiFENesin 100mg-10 MG/5 ML Syrup 10 ML Cup PO SCH ×3 (02:44→14:27)
[2018-01-05] MEDS: Albuterol/Ipratropium 3.0-0.5 MG/3 ML Neb Soln NEB SCH ×3 (07:20→14:44)
[2018-01-05] MEDS: Propranolol 60 MG Cap.ER PO SCH (08:27)
[2018-01-05] MEDS: Pantoprazole 40 MG Tab.CR PO SCH (08:27)
[2018-01-05] MEDS: Baclofen 10 MG Tab PO SCH ×2 (08:28→14:27)
[2018-01-05] MEDS: Gabapentin 300 MG Cap PO SCH (08:28)
[2018-01-05] MEDS: predniSONE 20 MG Tab PO SCH (08:29)
[2018-01-05] MEDS ORDERED: Levofloxacin 250 MG Tab PO SCH (09:00)
--- NOTE | 2018-01-05 10:52 | PCM.DCSUM1 ---
Discharge Summary - Hospital Course Brief History: Mr. Guy is a 57-year-old gentleman who was admitted through the emergency department with pneumonia and early sepsis. - Discharge Data Discharge Date: 01/05/18 Discharge Disposition: DC/Tfer to SNF 03 Condition: Fair - Discharge Diagnosis/Problem(s) (1) Pneumonia SNOMED Code(s): 687708080 ICD Code: J18.9 - PNEUMONIA, UNSPECIFIED ORGANISM Status: Acute Priority : High Current Visit: Yes Qualifiers: Pneumonia type: due to unspecified organism (2) Sepsis SNOMED Code(s): 94746699 ICD Code: A41.9 - SEPSIS, UNSPECIFIED ORGANISM Status: Acute Priority: High Current Visit: No Qualifiers: Sepsis type: sepsis due to unspecified organism Qualified Code(s): A41.9 - Sepsis, unspecified organism (3) Stage 3 chronic kidney disease SNOMED Code(s): 213841419 ICD Code: N18.3 - CHRONIC KIDNEY DISEASE, STAGE 3 (MODERATE) Status: Chronic Priority: Medium Current Visit: Yes (4) Cerebellar ataxia SNOMED Code(s): 26718899 ICD Code: G11.9 - HEREDITARY ATAXIA, UNSPECIFIED Status: Chronic Priority : High Current Visit: Yes (5) Chronic ITP (idiopathic thrombocytopenia) SNOMED Code(s): 793379395 ICD Code: D69.3 - IMMUNE THROMBOCYTOPENIC PURPURA Status: Chronic Priority: High Current Visit: Yes - Patient Summary/Data Consults: Consultations 12/31/17 04:14 Consult to Spiritual Care [CONS] Routine Hospital Course: Mr. Gyu is a 57-year-old gentleman who resides in the retirement because of his cerebellar ataxia. He developed symptoms of cough, shortness of breath, fever and lethargy at the retirement. He was brought into the emergency department for further evaluation, white blood cell count was significantly elevated 22,000 and chest x-ray showed obvious infiltrate consistent with pneumonia. He also has a known history of ITP platelet count was low on admission and remained low throughout hospital stay but fairly stable from words been over the past several months. He has had no evidence of active bleeding. He also had significant hypoxia and evidence of early sepsis on admission. He was treated with noninvasive positive pressure ventilation as well as vigorous IV fluid replacement. Antibiotics were initiated including Ceftazidime and levofloxacin. Blood cultures were obtained at the time of admission and remained negative throughout his hospital stay. Hemodynamically he stabilized relatively quickly with management, he did have some ongoing difficulty with hypoxia during the first few days of hospitalization and required ongoing supplemental oxygen as well as intermittent use of noninvasive positive pressure ventilation. By the time of discharge was off of supplemental oxygen and had not used the BiPAP for a period of 36 hours. There was no evidence of significant aspiration noted with eating while he was in the hospital. Activity will be as tolerated and he will resume his usual diet. Follow-up will be as needed at the retirement with his primary care provider Dr. Felipe. Follow-up lab will be obtained in one week with a CBC. - Patient Instructions Diet: Usual Diet as Tolerated Activity: As Tolerated Other/Special Instructions: Follow-up lab in 1 week, CBC. - Discharge Plan Prescriptions/Med Rec: Levofloxacin [Levaquin] 750 mg PO DAILY #3 tab Home Medications: Home Meds Baclofen 10 mg PO TID 07/11/17 [History] Gabapentin [Neurontin] 600 mg PO BID 07/11/17 [History] PHENobarbital 194.4 mg PO BEDTIME 07/11/17 [History] Prednisone [IJD: predniSONE] 20 mg PO DAILY 07/11/17 [History] Propranolol [Inderal LA] 60 mg PO DAILY 07/11/17 [History] Acetaminophen [Tylenol] 325 mg PO Q4H PRN 12/31/17 [History] Albuterol/Ipratropium [DuoNeb 3.0-0.5 MG/3 ML] 3 ml INH QID 12/31/17 [History] Alum Hydrox/Mag Hydrox/Simeth [Maalox Advanced] 20 ml PO Q4H PRN 12/31/17 [ History] Magnesium Hydroxide [Milk of Magnesia] 30 ml PO DAILY PRN 12/31/17 [History] Triamcinolone Acetonide [Triamcinolone Acetonide 0.1% Crm] 1 applic TOP Q8H PRN 12/31/17 [History] guaiFENesin [Guaifenesin] 400 mg PO Q4H PRN 12/31/17 [History] Levofloxacin [Levaquin] 750 mg PO DAILY #3 tab 01/05/18 [Rx] Referrals: Wilmar Felipe MD [Physician] - - Patient Data Vitals - Most Recent: Last Vital Signs Temp 96.8 F 01/05/18 07:37 Pulse 88 01/05/18 07:37 Resp 18 01/05/18 07:37 BP 117/53 L 01/05/18 07:37 Pulse Ox 94 L 01/05/18 07:37 Weight - Most Recent: 192 lb 15.988 oz I&O - Last 24 hours: Intake & Output 01/04/18 01/05/18 01/05/18 22:59 06:59 14:59 Intake Total 720 900 520 Balance 720 900 520 Med Orders - Current: Current Medications Acetaminophen (Tylenol) 650 mg PO Q4H PRN PRN Reason: Pain (Mild 1-3)/fever Last Admin: 01/04/18 17:43 Dose: 650 mg Albuterol (Proventil Neb Soln) 2.5 mg NEB Q4H PRN PRN Reason: Shortness Of Breath/wheezing Albuterol/Ipratropium (Duoneb 3.0-0.5 Mg/3 Ml) 3 ml NEB QIDRT [facility] Last Admin: 01/05/18 07:20 Dose: 3 ml Baclofen (Lioresal) 10 mg PO TID [facility] Last Admin: 01/05/18 08:28 Dose: 10 mg Docusate Sodium (Colace) 100 mg PO BID PRN PRN Reason: Constipation Gabapentin (Neurontin) 600 mg PO BID [facility] Last Admin: 01/05/18 08:28 Dose: 600 mg Guaifenesin/Codeine Phosphate (Robitussin Ac) 10 ml PO Q6H [facility] Last Admin: 01/05/18 08:31 Dose: 10 ml Levofloxacin 500 mg/ (Levofloxacin 250 mg) 750 mg PO Q24H [facility] Last Admin: 01/04/18 10:41 Dose: 750 mg Lorazepam (Ativan) 1 mg IV Q6H PRN PRN Reason: Nausea/Vomiting Last Admin: 01/04/18 17:39 Dose: 1 mg Magnesium Hydroxide (Milk Of Magnesia) 30 ml PO DAILY PRN PRN Reason: Constipation Morphine Sulfate (Morphine) 2 mg IVPUSH Q2H PRN PRN Reason: Pain (severe 7-10) Last Admin: 12/31/17 16:36 Dose: 2 mg Ondansetron HCl (Zofran Odt) 4 mg PO Q6H PRN PRN Reason: Nausea able to take PO Ondansetron HCl (Zofran) 4 mg IV Q4H PRN PRN Reason: Nausea/Vomiting Oxycodone HCl (Oxycodone) 5 mg PO Q4H PRN PRN Reason: Pain (moderate 4-6) Pantoprazole Sodium (Protonix) 40 mg PO ACBREAKFAST [facility] Last Admin: 01/05/18 08:27 Dose: 40 mg Phenobarbital (Phenobarbital) 194.4 mg PO BEDTIME [facility] Last Admin: 01/04/18 20:46 Dose: 194.4 mg Prednisone (Prednisone) 20 mg PO DAILY [facility] Last Admin: 01/05/18 08:29 Dose: 20 mg Propranolol HCl (Inderal La) 60 mg PO DAILY [facility] Last Admin: 01/05/18 08:27 Dose: 60 mg Triamcinolone Acetonide (Triamcinolone Acetonide 0.1% Crm) 0 gm TOP Q8H PRN PRN Reason: itch/seborrhea Discontinued Medications Albuterol/Ipratropium (Duoneb 3.0-0.5 Mg/3 Ml) 3 ml NEB ONETIME ONE Stop: 12/31/17 00:08 Last Admin: 12/31/17 00:26 Dose: 3 ml Enoxaparin Sodium (Lovenox) 30 mg SUBCUT DAILY [facility] Guaifenesin/Codeine Phosphate (Robitussin Ac) 10 ml PO Q6H [facility] Last Admin: 12/31/17 04:50 Dose: Not Given Acetaminophen 1,000 mg/ Premix 100 mls @ 400 mls/hr IV NOW ONE Stop: 12/31/17 00:21 Last Admin: 12/31/17 00:46 Dose: 400 mls/hr Azithromycin 500 mg/ Sodium (Chloride) 250 mls @ 250 mls/hr IV Q24H [facility] Last Admin: 12/31/17 01:06 Dose: 250 mls/hr Ceftriaxone Sodium 2 gm/ (Sodium Chloride) 50 mls @ 100 mls/hr IV Q8H [facility] Last Admin: 12/31/17 10:15 Dose: Not Given Sodium Chloride (Normal Saline) 1,000 mls @ 999 mls/hr IV ASDIRECTED [facility] Last Admin: 12/31/17 02:24 Dose: 125 mls/hr Piperacillin Sod/Tazobactam (Sod 3.375 gm/ Sodium Chloride) 50 mls @ 100 mls/ hr IV Q6H [facility] Last Admin: 12/31/17 07:40 Dose: Not Given Sodium Chloride (Normal Saline) 1,000 mls @ 125 mls/hr IV ASDIRECTED [facility] Ceftazidime 1 gm/ Sodium (Chloride) 50 mls @ 100 mls/hr IV Q8H [facility] Last Admin: 01/04/18 09:00 Dose: 100 mls/hr Potassium Chloride/Dextrose/Sod Cl (D5 Ns With 20 Meq Kcl) 1,000 mls @ 100 mls/ hr IV ASDIRECTED [facility] Last Admin: 01/01/18 09:26 Dose: 100 mls/hr Levofloxacin/Dextrose 750 mg/ (Premix) 150 mls @ 100 mls/hr IV Q24H [facility] Last Admin: 01/03/18 12:16 Dose: 100 mls/hr Magnesium Sulfate 2 gm/ Premix 50 mls @ 25 mls/hr IV ONETIME ONE Stop: 01/02/18 10:59 Last Admin: 01/02/18 08:57 Dose: 25 mls/hr Methylprednisolone Sodium Succinate (Solu-Medrol) 40 mg IV Q8H [facility] Last Admin: 01/03/18 09:34 Dose: Not Given Oseltamivir Phosphate (Tamiflu) 75 mg PO BID [facility] Stop: 01/04/18 09:01 Last Admin: 01/04/18 08:01 Dose: 75 mg Prednisone (Prednisone) 20 mg PO DAILY@0800 [facility] Last Admin: 12/31/17 09:03 Dose: Not Given *Q Meaningful Use (DIS) - VTE *Q VTE Criteria *Q: - Stroke *Q Stroke Criteria *Q: - AMI *Q AMI Criteria *Q:
[2018-01-05 11:03] VITALS: BP 147/88
== END 2018-01-05 15:30 | DRG 871 ==
LOC: JP.ED 23:24 → JP.MS 12-31 02:23
PROVIDERS: ADMIT Internal Medicine; ATTEND Hospitalist
DX: A41.9 Sepsis, unspecified organism (principal); J18.9 Pneumonia, unspecified organism; G11.9 Hereditary ataxia, unspecified; D69.3 Immune thrombocytopenic purpura; N18.3 Chronic kidney disease, stage 3 (moderate); Z66 Do not resuscitate; G40.909 Epilepsy, unspecified, not intractable, without status epilepticus; R09.02 Hypoxemia; R50.9 Fever, unspecified; R42 Dizziness and giddiness; Z87.01 Personal history of pneumonia (recurrent); H91.90 Unspecified hearing loss, unspecified ear; Z79.52 Long term (current) use of systemic steroids
CPT/HCPCS: 36415; 36600; 71045; 71045-26; 80048; 80053; 81001; 82803; 83605; 83735; 85025; 85027; 86140; 87040; 94640; 94660; 94762; 96361; 96374; 96375; 99285-25; A9270-GY; J0131; J0456; J0696; J0713; J1956; J2060; J2270; J2920; J3475; J3480; J7040; J7050; J7620

== ENCOUNTER 2018-02-24 08:55 | Inpatient (IN) | payer MEDICARE, MEDICAID ==
[2018-02-24] MEDS ORDERED: Lactated Ringers 1,000 ML IV ONE (09:07)
[2018-02-24] MEDS ORDERED: Acetaminophen 650 MG Supp RECTAL ONE (09:08)
--- NOTE | 2018-02-24 09:11 | EDM.PDOC ---
ED HPI GENERAL MEDICAL PROBLEM - General Chief Complaint: Respiratory Problem Stated Complaint: MEDICAL VIA [place] Time Seen by Provider: 02/24/18 09:09 Source of Information: Reports: EMS, Old Records History Limitations: Reports: Other (Patient deaf and non-verbal from [facility]) - History of Present Illness INITIAL COMMENTS - FREE TEXT/NARRATIVE: 57 yo male recently completed a course of antibiotics for aspiration pneumonia. Overnight developed a high fever and hypoxia. Was sent from his [facility] in [facility] via EMS for evaluation. Sats very low without high flow O2. Is deaf. Was sent via [facility] yesterday for outpatient blood cultures that are negative for growth so far. Augmentin was the antibiotic, finished last dose per records last Thursday. Onset: Today Onset Date: 02/24/18 Duration: Hour(s):, Getting Worse Location: Reports: Chest, Generalized Severity: Severe (hypoxia) Improves with: Reports: Medication (Was doing better while on antibiotics, got worse again rapidly with discontinuation. ) Worsens with: Reports: Other (d/c of his antibiotics) Context: Reports: Other (Recent course of an antibiotic for aspiration pneumonia.) Associated Symptoms: Reports: Fever/Chills, Shortness of Breath Treatments RADIOLOGY SERVICES MANAGER: Reports: IV/IO (fluids and O2 per EMS), Oxygen - Related Data Allergies Allergy/AdvReac Type Severity Reaction Status Date / Time No Known Allergies Allergy Verified 02/24/18 09:50 Home Meds: Home Meds Baclofen 10 mg PO TID 07/11/17 [History] Gabapentin [Neurontin] 600 mg PO BID 07/11/17 [History] PHENobarbital 194.4 mg PO BEDTIME 07/11/17 [History] Prednisone [IJD: predniSONE] 20 mg PO DAILY 07/11/17 [History] Propranolol [Inderal LA] 60 mg PO DAILY 07/11/17 [History] Acetaminophen [Tylenol] 325 mg PO Q4H PRN 12/31/17 [History] Albuterol/Ipratropium [DuoNeb 3.0-0.5 MG/3 ML] 3 ml INH QID 12/31/17 [History] Alum Hydrox/Mag Hydrox/Simeth [Maalox Advanced] 20 ml PO Q4H PRN 12/31/17 [ History] Magnesium Hydroxide [Milk of Magnesia] 30 ml PO DAILY PRN 12/31/17 [History] Triamcinolone Acetonide [Triamcinolone Acetonide 0.1% Crm] 1 applic TOP Q8H PRN 12/31/17 [History] guaiFENesin [Guaifenesin] 400 mg PO Q4H PRN 12/31/17 [History] Levofloxacin [Levaquin] 750 mg PO DAILY #3 tab 01/05/18 [Rx] Past Medical History HEENT History: Reports: Hard of Hearing Cardiovascular History: Reports: None Respiratory History: Reports: Pneumonia, Recurrent Genitourinary History: Reports: None Musculoskeletal History: Reports: Fracture, Other (See Below) Other Musculoskeletal History: muscle spasticity, hereditary ataxia, currently fractured base first metacarpal right hand, casted Neurological History: Reports: Seizure, Other (See Below) Other Neuro History: 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 unspecified convulsions, degenerative disease of nervous system, tremor Psychiatric History: Reports: Developmental Delay Endocrine/Metabolic History: Reports: None Hematologic History: Reports: Other (See Below) Other Hematologic History: mother reports "platelet disoder", ITP Immunologic History: Reports: Other (See Below) Other Immunologic History: immune thrombocytopenic purpura Oncologic (Cancer) History: Reports: None Dermatologic History: Reports: Cellulitis, Seborrheic Dermatitis - Infectious Disease History Infectious Disease History: Reports: Chicken Pox - Past Surgical History Head Surgeries/Procedures: Reports: None GI Surgical History: Reports: Cholecystectomy Social & Family History - Family History Cardiac: Reports: Heart Failure - Tobacco Use Smoking Status *Q: Never Smoker Second Hand Smoke Exposure: No - Caffeine Use Caffeine Use: Reports: None - Recreational Drug Use Recreational Drug Use: No - Living Situation & Occupation Living situation: Reports: Extended Care Facility Occupation: Disabled ED ROS GENERAL - Review of Systems Review Of Systems: Unable To Obtain (Limited ROS available due to patients communication deficit) Constitutional: Reports: Fever HEENT: Reports: No Symptoms Respiratory: Reports: Shortness of Breath Cardiovascular: Reports: No Symptoms ED EXAM, GENERAL - Physical Exam Exam: See Below Exam Limited By: No Limitations General Appearance: Alert, WD/WN, Moderate Distress Eye Exam: Bilateral Eye: Normal Inspection Ears: Normal External Exam, Normal Canal, Hearing Grossly Normal, Normal TMs Ear Exam: Bilateral Ear: Auricle Normal, Canal Normal, TM normal Nose: Normal Inspection, Normal Mucosa, No Blood Throat/Mouth: Normal Inspection, Normal Lips, Normal Oropharynx, No Airway Compromise Head: Atraumatic, Normocephalic Neck: Normal Inspection, Supple Respiratory/Chest: Respiratory Distress, Rhonchi, Other (tachypnea) Cardiovascular: Regular Rate, Rhythm, Tachycardia GI/Abdominal: Normal Bowel Sounds, Soft, Non-Tender Back Exam: Normal Inspection, CVA Tenderness (R) Extremities: Normal Inspection, Normal Range of Motion, Non-Tender, No Pedal Edema Neurological: Alert, Oriented, CN II-XII Intact, Normal Cognition Psychiatric: Normal Affect, Normal Mood Skin Exam: Warm, Intact, Normal Color, No Rash, Other (slightly sweaty.) Course - Vital Signs Text/Narrative:: Dr. Otoole to see in the ER, called 1017h Last Recorded V/S: Last Vital Signs Temp 40.9 C H 02/24/18 09:51 Pulse 134 H 02/24/18 09:51 Resp 26 H 02/24/18 09:51 BP 169/70 H 02/24/18 09:51 Pulse Ox 94 L 02/24/18 09:51 - Orders/Labs/Meds Orders: Active Orders 24 hr Category Date Time Status Gupta Catheter Insertion [Insert Urinary Catheter] [OM. Care 02/24/18 10:15 Ordered PC] Q24H Urinary Catheter Assessment [RC] ASDIRECTED Care 02/24/18 10:14 Ordered Chest 1V Frontal [CR] Stat Exams 02/24/18 09:06 Ordered CULTURE BLOOD [BC] Stat Lab 02/24/18 09:39 Ordered CULTURE BLOOD [BC] Stat Lab 02/24/18 09:39 Ordered UA W/MICROSCOPIC [URIN] Stat Lab 02/24/18 09:39 Ordered Piperacillin/Tazobactam [Zosyn] 4.5 gm Med 02/24/18 10:05 Active Sodium Chloride 0.9% [Normal Saline] 100 ml IV NOW Medication Orders Piperacillin Sod/Tazobactam (Sod 4.5 gm/ Sodium Chloride) 100 mls @ 200 mls/hr IV NOW STA Stop: 02/24/18 10:34 Labs: Laboratory Tests 02/24/18 02/24/18 02/24/18 Range/Units 09:32 09:32 09:32 WBC 20.6 H (4.5-11.0) K/uL RBC 4.88 (4.30-5.90) M/uL Hgb 15.0 (12.0-15.0) g/dL Hct 48.0 (40.0-54.0) % MCV 98 (80-98) fL MCH 31 (27-31) pg MCHC 31 L (32-36) % Plt Count 35 L (150-400) K/uL Sodium 151 H (140-148) mmol/L Potassium 3.9 (3.6-5.2) mmol/L Chloride 110 H (100-108) mmol/L Carbon Dioxide 32 (21-32) mmol/L Anion Gap 12.9 (5.0-14.0) mmol/L BUN 25 H (7-18) mg/dL Creatinine 1.2 (0.8-1.3) mg/dL Est Cr Clr Drug Dosing 72.09 mL/min Estimated GFR (MDRD) > 60 (>60) Glucose 115 H (74-106) mg/dL Lactic Acid 2.1 H (0.4-2.0) mmol/L Calcium 7.6 L (8.5-10.1) mg/dL Urine Color Urine Appearance Urine pH (4.5-8.0) Ur Specific [place] (1.008-1.030) Urine Protein (NEGATIVE) mg/dL Urine Glucose (UA) (NEGATIVE) mg/dL Urine Ketones (NEGATIVE) mg/dL Urine Occult Blood (NEGATIVE) Urine Nitrite (NEGAITVE) Urine Bilirubin (NEGATIVE) Urine Urobilinogen (NORMAL) mg/dL Ur Leukocyte Esterase (NEGATIVE) Urine RBC (0-5) Urine WBC (0-5) Ur Epithelial Cells Amorphous Sediment Urine Bacteria Urine Mucus 02/24/18 Range/Units 09:39 WBC (4.5-11.0) K/uL RBC (4.30-5.90) M/uL Hgb (12.0-15.0) g/dL Hct (40.0-54.0) % MCV (80-98) fL MCH (27-31) pg MCHC (32-36) % Plt Count (150-400) K/uL Sodium (140-148) mmol/L Potassium (3.6-5.2) mmol/L Chloride (100-108) mmol/L Carbon Dioxide (21-32) mmol/L Anion Gap (5.0-14.0) mmol/L BUN (7-18) mg/dL Creatinine (0.8-1.3) mg/dL Est Cr Clr Drug Dosing mL/min Estimated GFR (MDRD) (>60) Glucose (74-106) mg/dL Lactic Acid (0.4-2.0) mmol/L Calcium (8.5-10.1) mg/dL Urine Color Yellow Urine Appearance Cloudy Urine pH 7.0 (4.5-8.0) Ur Specific [place] 1.010 (1.008-1.030) Urine Protein 30 H (NEGATIVE) mg/dL Urine Glucose (UA) Normal (NEGATIVE) mg/dL Urine Ketones Negative (NEGATIVE) mg/dL Urine Occult Blood Large (NEGATIVE) Urine Nitrite Negative (NEGAITVE) Urine Bilirubin Small (NEGATIVE) Urine Urobilinogen 1 (NORMAL) mg/dL Ur Leukocyte Esterase Negative (NEGATIVE) Urine RBC 0-5 (0-5) Urine WBC Not seen (0-5) Ur Epithelial Cells Not seen Amorphous Sediment Not seen Urine Bacteria Not seen Urine Mucus Moderate Meds: Medications Generic Name Dose Route Start Last Admin Trade Name Freq PRN Reason Stop Dose Admin Piperacillin Sod/Tazobactam 100 mls @ 200 mls/hr 02/24/18 10:05 Sod 4.5 gm/ Sodium Chloride IV 02/24/18 10:34 NOW STA Discontinued Medications Generic Name Dose Route Start Last Admin Trade Name Freq PRN Reason Stop Dose Admin Acetaminophen 650 mg 02/24/18 09:08 02/24/18 09:27 Tylenol RECTAL 02/24/18 09:09 650 mg NOW ONE Administration Lactated Ringer's 1,000 mls @ 1,000 mls/hr 02/24/18 09:07 02/24/18 09:26 Ringers, Lactated IV 02/24/18 10:06 1,000 mls/hr BOLUS ONE Administration - Radiology Interpretation Free Text/Narrative:: CXR-fairly unremarkable. May be some atelectasis. Departure - Departure Time of Disposition: 10:35 Disposition: Admitted As Inpatient 67 Condition: Serious Clinical Impression: Hypoxia Sepsis Qualifiers: Sepsis type: sepsis due to unspecified organism Qualified Code(s): A41.9 - Sepsis, unspecified organism - Discharge Information Referrals: PCP,None [Primary Care Provider] - Forms: ED Department Discharge - My Orders Last 24 Hours: My Active Orders 02/24/18 09:06 Chest 1V Frontal [CR] Stat 02/24/18 09:39 CULTURE BLOOD [BC] Stat CULTURE BLOOD [BC] Stat UA W/MICROSCOPIC [URIN] Stat 02/24/18 10:05 Piperacillin/Tazobactam [Zosyn] 4.5 gm Sodium Chloride 0.9% [Normal Saline] 100 ml IV NOW 02/24/18 10:14 Urinary Catheter Assessment [RC] ASDIRECTED 02/24/18 10:15 Gupta Catheter Insertion [Insert Urinary Catheter] [OM.PC] Q24H - Assessment/Plan Last 24 Hours: My Active Orders 02/24/18 09:06 Chest 1V Frontal [CR] Stat 02/24/18 09:39 CULTURE BLOOD [BC] Stat CULTURE BLOOD [BC] Stat UA W/MICROSCOPIC [URIN] Stat 02/24/18 10:05 Piperacillin/Tazobactam [Zosyn] 4.5 gm Sodium Chloride 0.9% [Normal Saline] 100 ml IV NOW 02/24/18 10:14 Urinary Catheter Assessment [RC] ASDIRECTED 02/24/18 10:15 Gupta Catheter Insertion [Insert Urinary Catheter] [OM.PC] Q24H
[2018-02-24] MEDS ORDERED: Piperacillin/Tazobactam 4.5 GM in Sodium Chloride 0.9% 100 ML IV STA (10:05)
--- NOTE | 2018-02-24 10:21 | CR ---
Low lung volumes. Pleural vasculature again is mildly prominent. Improved visualization of the left h emidiaphragm. Could not exclude a retrocardiac opacity medially however. Findings discussed with Dr. Avery
[2018-02-24] MEDS ORDERED: LORazepam 2 MG/ML SDV IVPUSH ONE (10:58)
[2018-02-24] MEDS ORDERED: Piperacillin/Tazobactam/Dext 4.5 GM in Premix Bag 1 BAG IV ONE (11:00)
[2018-02-24] MEDS ORDERED: Lactated Ringers 1,000 ML IV SCH (11:30)
--- NOTE | 2018-02-24 11:41 | PCM.HP ---
H&P History of Present Illness - General Date of Service: 02/24/18 Admit Problem/Dx: Admission Diagnosis/Problem Admission Diagnosis/Problem Aspiration pneumonia Source of Information: [facility] Records, Provider. No: Patient History Limitations: Reports: Altered Mental Status - History of Present Illness Initial Comments - Free Text/Narative: Deon presents to the emergency room today via ambulance after [facility] staff noted hypoxia and a fever of 102. Deon is unable to provide any history at this time because of his cerebellar ataxia and inability to speak. He was recently treated with Augmentin for a presumed aspiration pneumonia but had been off antibiotics for a few days. Nothing had been noted out of the ordinary in the days prior to onset of symptoms. His mother and father had been to the [facility] to visit yesterday and thought things seemed fairly normal. There is no obvious witnessed aspiration event. In route to the hospital this morning he needed 10 L of supplemental oxygen to maintain his saturations. His temperature continued to climb and his peak temperature was around 105. Upon arrival to the emergency room he is noted to be tachycardic with a heart rate of 140. He remains on 10 L of supplemental oxygen. White count is significantly elevated and lactic acid level is only very mildly elevated. He is agitated. He will be admitted for management of presumed aspiration pneumonia and hypoxic respiratory failure. - Related Data Allergies/Adverse Reactions: Allergies Allergy/AdvReac Type Severity Reaction Status Date / Time No Known Allergies Allergy Verified 02/24/18 09:50 Home Medications: Home Meds Baclofen 10 mg PO TID 07/11/17 [History] Gabapentin [Neurontin] 600 mg PO BID 07/11/17 [History] PHENobarbital 194.4 mg PO BEDTIME 07/11/17 [History] Prednisone [IJD: predniSONE] 20 mg PO DAILY 07/11/17 [History] Propranolol [Inderal LA] 60 mg PO DAILY 07/11/17 [History] Acetaminophen [Tylenol] 650 mg PO Q4H PRN 12/31/17 [History] Albuterol/Ipratropium [DuoNeb 3.0-0.5 MG/3 ML] 3 ml INH Q4H PRN 12/31/17 [ History] Alum Hydrox/Mag Hydrox/Simeth [Maalox Advanced] 20 ml PO Q4H PRN 12/31/17 [ History] Magnesium Hydroxide [Milk of Magnesia] 30 ml PO DAILY PRN 12/31/17 [History] Triamcinolone Acetonide [Triamcinolone Acetonide 0.1% Crm] 1 applic TOP Q8H PRN 12/31/17 [History] guaiFENesin [Guaifenesin] 400 mg PO Q4H PRN 12/31/17 [History] Acetaminophen 650 mg PO QID 02/24/18 [History] Albuterol/Ipratropium [DuoNeb 3.0-0.5 MG/3 ML] 3 ml INH 5XDAY 02/24/18 [History] Citalopram Hydrobromide [Celexa] 10 mg PO DAILY 02/24/18 [History] Gabapentin [Neurontin] 200 mg PO WITHLUNCH 02/24/18 [History] LORazepam 1 mg PO Q4H PRN 02/24/18 [History] Past Medical History HEENT History: Reports: Hard of Hearing Cardiovascular History: Reports: None Respiratory History: Reports: Pneumonia, Recurrent Genitourinary History: Reports: None Musculoskeletal History: Reports: Fracture, Other (See Below) Other Musculoskeletal History: muscle spasticity, hereditary ataxia, currently fractured base first metacarpal right hand, casted Neurological History: Reports: Seizure, Other (See Below) Other Neuro History: 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 unspecified convulsions, degenerative disease of nervous system, tremor Psychiatric History: Reports: Developmental Delay Endocrine/Metabolic History: Reports: None Hematologic History: Reports: Other (See Below) Other Hematologic History: mother reports "platelet disoder", ITP Immunologic History: Reports: Other (See Below) Other Immunologic History: immune thrombocytopenic purpura Oncologic (Cancer) History: Reports: None Dermatologic History: Reports: Cellulitis, Seborrheic Dermatitis - Infectious Disease History Infectious Disease History: Reports: Chicken Pox - Past Surgical History Head Surgeries/Procedures: Reports: None GI Surgical History: Reports: Cholecystectomy Social & Family History - Family History Cardiac: Reports: Heart Failure - Tobacco Use Smoking Status *Q: Never Smoker Second Hand Smoke Exposure: No - Caffeine Use Caffeine Use: Reports: None - Alcohol Use Alcohol Use History: No - Recreational Drug Use Recreational Drug Use: No - Living Situation & Occupation Living situation: Reports: Extended Care Facility Occupation: Disabled H&P Review of Systems - Review of Systems: Review Of Systems: Unable To Obtain Free Text/Narrative: patient in non-verbal Exam - Exam Exam: See Below - Vital Signs Vital Signs: Last Vital Signs Temp 40.5 C H 02/24/18 11:36 Pulse 126 H 02/24/18 11:36 Resp 28 H 02/24/18 11:05 BP 186/66 H 02/24/18 11:05 Pulse Ox 93 L 02/24/18 11:05 Weight: 90.718 kg - Exam Quality Assessment: Supplemental Oxygen General: Alert, Moderate Distress. No: Oriented HEENT: Conjunctiva Clear. No: Mucosa Moist & [place] (dry), Scleral Icterus Neck: Supple, Trachea Midline. No: Lymphadenopathy Lungs: Normal Respiratory Effort, Crackles (few both bases R>L) Cardiovascular: Regular Rhythm, Tachycardia. No: Systolic Murmur GI/Abdominal Exam: Normal Bowel Sounds, Soft, Non-Tender, No Distention Extremities: No Pedal Edema. No: Increased Warmth Peripheral Pulses: 2+: Dorsalis Pedis (L), Dorsalis Pedis (R) Skin: Warm, Dry Neuro Extensive - Mental Status: Alert. No: Oriented x3, Normal Cognition Neuro Extensive - Motor, Sensory, Reflexes: Abnormal Motor, Tremor Psychiatric: Alert, Anxious - Patient Data Lab Results Last 24 hrs: Laboratory Results - last 24 hr 02/24/18 02/24/18 02/24/18 Range/Units 09:32 09:32 09:32 WBC 20.6 H (4.5-11.0) K/uL RBC 4.88 (4.30-5.90) M/uL Hgb 15.0 (12.0-15.0) g/dL Hct 48.0 (40.0-54.0) % MCV 98 (80-98) fL MCH 31 (27-31) pg MCHC 31 L (32-36) % Plt Count 35 L (150-400) K/uL D-Dimer, Quantitative (0.0-400.0) ng/mL Sodium 151 H (140-148) mmol/L Potassium 3.9 (3.6-5.2) mmol/L Chloride 110 H (100-108) mmol/L Carbon Dioxide 32 (21-32) mmol/L Anion Gap 12.9 (5.0-14.0) mmol/L BUN 25 H (7-18) mg/dL Creatinine 1.2 (0.8-1.3) mg/dL Est Cr Clr Drug Dosing 72.09 mL/min Estimated GFR (MDRD) > 60 (>60) Glucose 115 H (74-106) mg/dL Lactic Acid 2.1 H (0.4-2.0) mmol/L Calcium 7.6 L (8.5-10.1) mg/dL Urine Color Urine Appearance Urine pH (4.5-8.0) Ur Specific [place] (1.008-1.030) Urine Protein (NEGATIVE) mg/dL Urine Glucose (UA) (NEGATIVE) mg/dL Urine Ketones (NEGATIVE) mg/dL Urine Occult Blood (NEGATIVE) Urine Nitrite (NEGAITVE) Urine Bilirubin (NEGATIVE) Urine Urobilinogen (NORMAL) mg/dL Ur Leukocyte Esterase (NEGATIVE) Urine RBC (0-5) Urine WBC (0-5) Ur Epithelial Cells Amorphous Sediment Urine Bacteria Urine Mucus 02/24/18 02/24/18 Range/Units 09:39 10:16 WBC (4.5-11.0) K/uL RBC (4.30-5.90) M/uL Hgb (12.0-15.0) g/dL Hct (40.0-54.0) % MCV (80-98) fL MCH (27-31) pg MCHC (32-36) % Plt Count (150-400) K/uL D-Dimer, Quantitative > 5000 H (0.0-400.0) ng/mL Sodium (140-148) mmol/L Potassium (3.6-5.2) mmol/L Chloride (100-108) mmol/L Carbon Dioxide (21-32) mmol/L Anion Gap (5.0-14.0) mmol/L BUN (7-18) mg/dL Creatinine (0.8-1.3) mg/dL Est Cr Clr Drug Dosing mL/min Estimated GFR (MDRD) (>60) Glucose (74-106) mg/dL Lactic Acid (0.4-2.0) mmol/L Calcium (8.5-10.1) mg/dL Urine Color Yellow Urine Appearance Cloudy Urine pH 7.0 (4.5-8.0) Ur Specific [place] 1.010 (1.008-1.030) Urine Protein 30 H (NEGATIVE) mg/dL Urine Glucose (UA) Normal (NEGATIVE) mg/dL Urine Ketones Negative (NEGATIVE) mg/dL Urine Occult Blood Large (NEGATIVE) Urine Nitrite Negative (NEGAITVE) Urine Bilirubin Small (NEGATIVE) Urine Urobilinogen 1 (NORMAL) mg/dL Ur Leukocyte Esterase Negative (NEGATIVE) Urine RBC 0-5 (0-5) Urine WBC Not seen (0-5) Ur Epithelial Cells Not seen Amorphous Sediment Not seen Urine Bacteria Not seen Urine Mucus Moderate Result Diagrams: 02/24/18 09:32 02/24/18 09:32 Imaging Impressions Last 24 hrs: CXR - images personally reviewed - shallow inspiration but otherwise clear with no mass, effusion or infiltrate *Q Meaningful Use (ADM) - VTE Risk Assess *Q Each Risk Factor Represents 1 Point: Age 41 - 59 years, Sepsis, Serious lung disease including pneumonia Total Score 1 Point Risk Factors: 3 Each Risk Factor Represents 2 Points: None Total Score 2 Point Risk Factors: 0 Each Risk Factor Represents 3 Points: None Total Score 3 Point Risk Factors: 0 Each Risk Factor Represents 5 Points: None Total Score 5 Point Risk Factors: 0 Venous Thromboembolism Risk Factor Score *Q: 3 - Problem List (1) Aspiration pneumonia SNOMED Code(s): 537177041 ICD Code: J69.0 - PNEUMONITIS DUE TO INHALATION OF FOOD AND VOMIT Status: Acute Current Visit: Yes Qualifiers: Aspiration pneumonia type: unspecified Laterality: bilateral Lung location: lower lobe of lung Qualified Code(s): J69.0 - Pneumonitis due to inhalation of food and vomit (2) Acute respiratory failure with hypoxia SNOMED Code(s): 21172468, 596937236 ICD Code: J96.01 - ACUTE RESPIRATORY FAILURE WITH HYPOXIA Status: Acute Current Visit: Yes (3) Sepsis SNOMED Code(s): 49210080 ICD Code: A41.9 - SEPSIS, UNSPECIFIED ORGANISM Status: Acute Priority: High Current Visit: Yes Qualifiers: Sepsis type: sepsis due to unspecified organism Qualified Code(s): A41.9 - Sepsis, unspecified organism (4) Cerebellar ataxia SNOMED Code(s): 07620290 ICD Code: G11.9 - HEREDITARY ATAXIA, UNSPECIFIED Status: Chronic Priority : High Current Visit: No (5) Chronic ITP (idiopathic thrombocytopenia) SNOMED Code(s): 557880814 ICD Code: D69.3 - IMMUNE THROMBOCYTOPENIC PURPURA Status: Chronic Priority: High Current Visit: No Problem List Initiated/Reviewed/Updated: Yes Orders Last 24hrs: Active Orders 24 hr Category Date Time Status Patient Status Manage Transfer [TRANSFER] Routine ADT 02/24/18 11:26 Ordered Gupta Catheter Insertion [Insert Urinary Catheter] [OM. Care 02/24/18 10:15 Ordered PC] Q24H Urinary Catheter Assessment [RC] ASDIRECTED Care 02/24/18 10:14 Active CULTURE BLOOD [BC] Stat Lab 02/24/18 09:39 Ordered CULTURE BLOOD [BC] Stat Lab 02/24/18 10:21 Received UA W/MICROSCOPIC [URIN] Stat Lab 02/24/18 09:39 Ordered Lactated Ringers [Ringers, Lactated] 1,000 ml Med 02/24/18 11:30 Active IV BOLUS Resuscitation Status Routine Resus Stat 02/24/18 11:28 Ordered Medication Orders Lactated Ringer's (Ringers, Lactated) 1,000 mls @ 999 mls/hr IV BOLUS HERRERA Stop: 02/24/18 12:31 Last Admin: 02/24/18 11:35 Dose: 999 mls/hr Assessment/Plan Comment:: ASSESSMENT AND PLAN - Probable aspiration pneumonia with acute hypoxic respiratory failure and sepsis - most likely diagnosis given very high fever and history of similar in the setting of known dysphasia. D-dimer is greater than [address] scan of the chest is pending. Heart rate seems to be improving some with IV fluids temperature remains elevated but appears to be trending down finally. Prognosis is guarded given his chronic ataxia and slow decline in his function. -Anabiotic coverage with Zosyn and levofloxacin -IV steroids tonight and resume prednisone tomorrow -Supplement oxygen -Fever management -Continue mechanical soft diet and thickened liquids Cerebellar ataxia - Chronic, progressive debilitating disease. Family not quite ready for hospice at this time. -Continue anti-spasmodics Chronic ITP - Chronic thrombocytopenia with significant decrease in his platelet levels. No evidence for bleeding at this time. -Continue outpatient steroids Maintenance issues - - DVT prophylaxis - mechanical with risk of bleeding - GI prophylaxis - PPI - Nutrition - mechanical soft with nectar thick liquids - Gupta catheter - placed in the emergency room for strict intake and output monitoring in the setting of critical illness CODE STATUS - DO NOT RESUSCITATE and DO NOT INTUBATE Admission justification - This patient will be admitted for inpatient services and is medically appropriate meeting medical necessity for inpatient admission as outlined in my documentation. I reasonably expect the patient will require inpatient services that span a period time over 2 midnights. I reasonably expect this patient to be discharged or transferred within 96 hours after admission to the [facility]. Disposition - anticipate discharge to [facility] home after the hospital stay Primary care physician - Dr Matteo Otoole M.D.
[2018-02-24] MEDS ORDERED: Albuterol 0.083% 2.5 MG/3 ML Neb Soln NEB PRN (12:25)
[2018-02-24] MEDS ORDERED: Ondansetron 4 MG Tab.DIS PO PRN (12:25)
[2018-02-24] MEDS ORDERED: Polyethylene Glycol 3350 Powder 17 GM Packet PO PRN (12:25)
[2018-02-24] MEDS ORDERED: Gabapentin 100 MG Cap PO SCH (12:25)
[2018-02-24] MEDS ORDERED: Sodium Chloride 0.9% 80 ML IV ONE (12:31)
[2018-02-24] MEDS ORDERED: Iopamidol 755 Mg/ML 100 ML Bottle IV SCH (12:45)
[2018-02-24] MEDS: Sodium Chloride 0.9% 1,000 ML IV SCH ×2 (12:57→19:15)
[2018-02-24] MEDS: Levofloxacin/Dextrose 5%-Water 750 MG in Premix Bag 1 BAG IV SCH (12:58)
[2018-02-24] MEDS ORDERED: methylPREDNISolone Sodium Succinate 125 MG/2 ML SDV IVPUSH ONE (13:00)
[2018-02-24] MEDS: LORazepam 2 MG/ML SDV IVPUSH PRN (13:25)
[2018-02-24] MEDS: Sodium Chloride 0.9% 10 ML Syringe FLUSH ONE ×2 (13:26→14:43)
[2018-02-24] MEDS: Baclofen 10 MG Tab PO SCH ×2 (14:12→21:10)
[2018-02-24] MEDS: Albuterol/Ipratropium 3.0-0.5 MG/3 ML Neb Soln INH SCH ×2 (14:51→21:30)
--- NOTE | 2018-02-24 14:59 | CT ---
CTA chest. Total DLP 458. Findings: No evidence for dissection. No enlarged mediastinal or hilar adenopathy. Motion artifact li mits details of the segmental pulmonary arteries within the lower lobes. There does appear to be a fi lling defect within a left lower lobe segmental pulmonary artery on axial image #60. Suspicion for fi lling defects within the right lower lobe segmental and subsegmental pulmonary arteries although arslan on artifact greatly limits details. There is hazy density within the right lung base with elevation t he right hemidiaphragm. Calcified granuloma left lung base. A tiny left lower lobe pulmonary nodule m easuring 2 mm on axial image #86 is new compared to prior. No pneumothorax. No focal consolidation Fatty infiltration of the liver. Prior cholecystectomy change. No acute osseous abnormality. Impression: 1. Motion artifact greatly limits details of the pulmonary arteries as described above. There does ap pear to be a filling defect within a segmental left lower lobe pulmonary artery which indicate pulmon dagoberto artery embolus. Probable small pulmonary artery emboli within segmental and subsegmental pulmonar y arteries within the right lower lobe. 2. Hazy density within the right lung base may indicate atelectatic change only. Difficult to exclude developing infiltrate. 3. Tiny pulmonary nodule 2 mm is new on this examination. Recommend follow-up pressure criteria. Fleischner Society Guidelines: Nodule Size (mm)*: Less than or equal to 4 Low Risk Patient (1): No followup needed (3) High Risk Patient (2): Followup CT at 12 months; if unchanged, no further followup (4) Nodule Size (mm)*: Greater than 4-6 Low Risk Patient (1): Followup CT at 12 months; if unchanged, no further followup (4) High Risk Patient (2): Initial followup CT at 6-12 months then at 18-24 months if no change (4) Nodule Size (mm)*: Greater than 6-8 Low Risk Patient (1): Initial followup CT at 6-12 months then at 18-24 months if no change High Risk Patient (2): Initial CT at 3-6 months then at 9-12 months and 24 months if no change Nodule Size (mm)*: Greater than 8 Low Risk Patient (1): Followup CT at around 3, 9 and 24 months, dynamic contrast-enhanced CT, PET and /or biopsy High Risk Patient (2): Same as for low risk patient (4) Note: Newly detected indeterminate nodule in persons 35 years of age or older. *Average length and width. (1) Minimal or absent history of smoking and of other known risk factors. (2) History of smoking or of other known risk factors. (3) The risk of malignancy in this category (Less than 1%) is substantially less than that in a basel ine CT scan of an asymptomatic smoker. (4) Non-solid (ground-glass) or partly solid nodules may require longer followup to exclude indolent adenocarcinoma.
[2018-02-24] MEDS: Piperacillin/Tazobactam/Dext 3.375 GM in Premix Bag 1 BAG IV SCH ×2 (15:49→21:31)
[2018-02-24] MEDS: Acetaminophen 325 MG Tab PO SCH ×2 (15:49→21:11)
[2018-02-24] MEDS ORDERED: Sodium Chloride 0.9% 1,000 ML IV ONE (17:15)
[2018-02-24] MEDS: methylPREDNISolone Sodium Succinate 125 MG/2 ML SDV IVPUSH SCH ×2 (17:46→23:54)
[2018-02-24] MEDS ORDERED: Ketorolac 30 MG/ML SDV IVPUSH ONE (19:24)
[2018-02-24] MEDS: Gabapentin 300 MG Cap PO SCH (21:10)
[2018-02-24] MEDS: PHENobarbital 32.4 MG Tab PO SCH (21:10)
[2018-02-25] MEDS: LORazepam 2 MG/ML SDV IVPUSH PRN (02:06)
[2018-02-25] MEDS: Sodium Chloride 0.9% 1,000 ML IV SCH (03:43)
[2018-02-25] MEDS: Piperacillin/Tazobactam/Dext 3.375 GM in Premix Bag 1 BAG IV SCH ×3 (03:48→16:14)
[2018-02-25] MEDS: Acetaminophen 325 MG Tab PO SCH ×2 (05:55→10:16)
[2018-02-25] MEDS: Albuterol/Ipratropium 3.0-0.5 MG/3 ML Neb Soln INH SCH ×4 (07:13→20:19)
[2018-02-25] MEDS: Baclofen 10 MG Tab PO SCH ×4 (08:16→20:20)
[2018-02-25] MEDS: Gabapentin 300 MG Cap PO SCH ×2 (08:17→20:19)
--- NOTE | 2018-02-25 08:50 | PCM.PN ---
- General Info Date of Service: 02/25/18 Functional Status: Reports: Pain Controlled. Denies: Tolerating Diet - Review of Systems General: Reports: Fever, Weakness Pulmonary: Reports: Cough Systems Review Comment:: Patient had difficulty with persistent tachycardia and temperature elevation throughout the night. Maximum temperature was greater than 105. He has appeared uncomfortable throughout the night. Urine output has been acceptable. Blood pressures have been acceptable. We were able to wean down his oxygen supplementation some overnight. He appeared to have an episode of aspiration well receiving yogurt and thickened liquids this morning. He had an acute drop in his oxygen saturation but did respond well to deep suctioning. Cultures are negative so far. - Patient Data Vitals - Most Recent: Last Vital Signs Temp 38.8 C H 02/25/18 07:00 Pulse 130 H 02/25/18 07:13 Resp 30 H 02/25/18 07:00 BP 172/63 H 02/25/18 07:00 Pulse Ox 93 L 02/25/18 07:00 Weight - Most Recent: 83 kg I&O - Last 24 Hours: Intake & Output 02/24/18 02/25/18 02/25/18 22:59 06:59 14:59 Intake Total 1507 1350 Output Total 375 700 0 Balance 1132 650 0 Lab Results Last 24 Hours: Laboratory Results - last 24 hr 02/24/18 02/24/18 02/24/18 Range/Units 09:32 09:32 09:32 WBC 20.6 H (4.5-11.0) K/uL RBC 4.88 (4.30-5.90) M/uL Hgb 15.0 (12.0-15.0) g/dL Hct 48.0 (40.0-54.0) % MCV 98 (80-98) fL MCH 31 (27-31) pg MCHC 31 L (32-36) % Plt Count 35 L (150-400) K/uL D-Dimer, Quantitative (0.0-400.0) ng/mL Sodium 151 H (140-148) mmol/L Potassium 3.9 (3.6-5.2) mmol/L Chloride 110 H (100-108) mmol/L Carbon Dioxide 32 (21-32) mmol/L Anion Gap 12.9 (5.0-14.0) mmol/L BUN 25 H (7-18) mg/dL Creatinine 1.2 (0.8-1.3) mg/dL Est Cr Clr Drug Dosing 72.09 mL/min Estimated GFR (MDRD) > 60 (>60) Glucose 115 H (74-106) mg/dL Lactic Acid 2.1 H (0.4-2.0) mmol/L Calcium 7.6 L (8.5-10.1) mg/dL Magnesium (1.8-2.4) mg/dL Urine Color Urine Appearance Urine pH (4.5-8.0) Ur Specific [place] (1.008-1.030) Urine Protein (NEGATIVE) mg/dL Urine Glucose (UA) (NEGATIVE) mg/dL Urine Ketones (NEGATIVE) mg/dL Urine Occult Blood (NEGATIVE) Urine Nitrite (NEGAITVE) Urine Bilirubin (NEGATIVE) Urine Urobilinogen (NORMAL) mg/dL Ur Leukocyte Esterase (NEGATIVE) Urine RBC (0-5) Urine WBC (0-5) Ur Epithelial Cells Amorphous Sediment Urine Bacteria Urine Mucus 02/24/18 02/24/18 02/24/18 Range/Units 09:39 10:16 15:00 WBC (4.5-11.0) K/uL RBC (4.30-5.90) M/uL Hgb (12.0-15.0) g/dL Hct (40.0-54.0) % MCV (80-98) fL MCH (27-31) pg MCHC (32-36) % Plt Count (150-400) K/uL D-Dimer, Quantitative > 5000 H (0.0-400.0) ng/mL Sodium (140-148) mmol/L Potassium (3.6-5.2) mmol/L Chloride (100-108) mmol/L Carbon Dioxide (21-32) mmol/L Anion Gap (5.0-14.0) mmol/L BUN (7-18) mg/dL Creatinine (0.8-1.3) mg/dL Est Cr Clr Drug Dosing mL/min Estimated GFR (MDRD) (>60) Glucose (74-106) mg/dL Lactic Acid 1.7 (0.4-2.0) mmol/L Calcium (8.5-10.1) mg/dL Magnesium (1.8-2.4) mg/dL Urine Color Yellow Urine Appearance Cloudy Urine pH 7.0 (4.5-8.0) Ur Specific [place] 1.010 (1.008-1.030) Urine Protein 30 H (NEGATIVE) mg/dL Urine Glucose (UA) Normal (NEGATIVE) mg/dL Urine Ketones Negative (NEGATIVE) mg/dL Urine Occult Blood Large (NEGATIVE) Urine Nitrite Negative (NEGAITVE) Urine Bilirubin Small (NEGATIVE) Urine Urobilinogen 1 (NORMAL) mg/dL Ur Leukocyte Esterase Negative (NEGATIVE) Urine RBC 0-5 (0-5) Urine WBC Not seen (0-5) Ur Epithelial Cells Not seen Amorphous Sediment Not seen Urine Bacteria Not seen Urine Mucus Moderate 02/25/18 02/25/18 Range/Units 05:00 05:00 WBC 8.2 (4.5-11.0) K/uL RBC 4.57 (4.30-5.90) M/uL Hgb 13.9 (12.0-15.0) g/dL Hct 44.7 (40.0-54.0) % MCV 98 (80-98) fL MCH 30 (27-31) pg MCHC 31 L (32-36) % Plt Count 19 L* (150-400) K/uL D-Dimer, Quantitative (0.0-400.0) ng/mL Sodium 150 H (140-148) mmol/L Potassium 3.4 L (3.6-5.2) mmol/L Chloride 113 H (100-108) mmol/L Carbon Dioxide 24 (21-32) mmol/L Anion Gap 16.4 H (5.0-14.0) mmol/L BUN 39 H D (7-18) mg/dL Creatinine 1.6 H (0.8-1.3) mg/dL Est Cr Clr Drug Dosing 54.07 mL/min Estimated GFR (MDRD) 45 L (>60) Glucose 138 H (74-106) mg/dL Lactic Acid (0.4-2.0) mmol/L Calcium 7.0 L (8.5-10.1) mg/dL Magnesium 1.6 L (1.8-2.4) mg/dL Urine Color Urine Appearance Urine pH (4.5-8.0) Ur Specific [place] (1.008-1.030) Urine Protein (NEGATIVE) mg/dL Urine Glucose (UA) (NEGATIVE) mg/dL Urine Ketones (NEGATIVE) mg/dL Urine Occult Blood (NEGATIVE) Urine Nitrite (NEGAITVE) Urine Bilirubin (NEGATIVE) Urine Urobilinogen (NORMAL) mg/dL Ur Leukocyte Esterase (NEGATIVE) Urine RBC (0-5) Urine WBC (0-5) Ur Epithelial Cells Amorphous Sediment Urine Bacteria Urine Mucus Med Orders - Current: Current Medications Acetaminophen (Tylenol) 650 mg PO QID [facility] Last Admin: 02/25/18 05:55 Dose: 650 mg Albuterol (Proventil Neb Soln) 2.5 mg NEB Q4H PRN PRN Reason: Shortness Of Breath/wheezing Albuterol/Ipratropium (Duoneb 3.0-0.5 Mg/3 Ml) 3 ml INH QIDRT [facility] Last Admin: 02/25/18 07:13 Dose: 3 ml Baclofen (Lioresal) 10 mg PO TID [facility] Last Admin: 02/25/18 08:16 Dose: 10 mg Citalopram Hydrobromide (Celexa) 10 mg PO DAILY [facility] Last Admin: 02/25/18 08:16 Dose: 10 mg Gabapentin (Neurontin) 200 mg PO WITHLUNCH [facility] Last Admin: 02/24/18 14:12 Dose: 200 mg Gabapentin (Neurontin) 600 mg PO BID [facility] Last Admin: 02/25/18 08:17 Dose: 600 mg Levofloxacin/Dextrose 750 mg/ (Premix) 150 mls @ 100 mls/hr IV Q24H [facility] Last Admin: 02/24/18 12:58 Dose: 100 mls/hr Piperacillin/Tazobactam/ (Dextrose 3.375 gm/ Premix) 50 mls @ 100 mls/hr IV Q6H [facility] Last Admin: 02/25/18 03:48 Dose: 100 mls/hr Vancomycin HCl 1.5 gm/ Sodium (Chloride) 250 mls @ 150 mls/hr IV ONETIME ONE Stop: 02/25/18 10:39 Vancomycin HCl 1.25 gm/ Sodium (Chloride) 250 mls @ 150 mls/hr IV Q12H [facility] Lorazepam (Ativan) 0.5 - 1 mg IVPUSH Q4H PRN PRN Reason: Anxiety Last Admin: 02/25/18 02:06 Dose: 0.5 mg Ondansetron HCl (Zofran Odt) 4 mg PO Q6H PRN PRN Reason: Nausea able to take PO Phenobarbital (Phenobarbital) 194.4 mg PO BEDTIME [facility] Last Admin: 02/24/18 21:10 Dose: 194.4 mg Polyethylene Glycol (Miralax) 17 gm PO DAILY PRN PRN Reason: Constipation Propranolol HCl (Inderal La) 60 mg PO DAILY [facility] Last Admin: 02/25/18 08:16 Dose: 60 mg Discontinued Medications Acetaminophen (Tylenol) 650 mg RECTAL NOW ONE Stop: 02/24/18 09:09 Last Admin: 02/24/18 09:27 Dose: 650 mg Lactated Ringer's (Ringers, Lactated) 1,000 mls @ 1,000 mls/hr IV BOLUS ONE Stop: 02/24/18 10:06 Last Admin: 02/24/18 09:26 Dose: 1,000 mls/hr Piperacillin/Tazobactam/ (Dextrose 4.5 gm/ Premix) 100 mls @ 200 mls/hr IV ONETIME ONE Stop: 02/24/18 11:29 Last Admin: 02/24/18 11:15 Dose: 200 mls/hr Lactated Ringer's (Ringers, Lactated) 1,000 mls @ 999 mls/hr IV BOLUS [facility] Stop: 02/24/18 12:31 Last Admin: 02/24/18 11:35 Dose: 999 mls/hr Sodium Chloride (Normal Saline) 1,000 mls @ 125 mls/hr IV ASDIRECTED [facility] Last Admin: 02/25/18 03:43 Dose: 125 mls/hr Sodium Chloride (Normal Saline) 80 mls @ 3.5 mls/sec IV ONETIME ONE Stop: 02/24/18 12:32 Last Admin: 02/24/18 14:43 Dose: 3.5 mls/sec Sodium Chloride (Normal Saline) 1,000 mls @ 500 mls/hr IV ASDIRECTED ONE Stop: 02/24/18 19:14 Last Admin: 02/24/18 17:11 Dose: 500 mls/hr Iopamidol (Isovue-370 (76%)) 100 ml IV . DIRECTED [facility] Stop: 02/24/18 13:30 Last Admin: 02/24/18 14:43 Dose: 100 ml Ketorolac Tromethamine (Toradol) 30 mg IVPUSH ONETIME ONE Stop: 02/24/18 19:25 Last Admin: 02/24/18 19:42 Dose: 30 mg Lorazepam (Ativan) 0.5 mg IVPUSH ONETIME ONE Stop: 02/24/18 10:59 Last Admin: 02/24/18 11:13 Dose: 0.5 mg Methylprednisolone Sodium Succinate (Solu-Medrol) 125 mg IVPUSH ONETIME ONE Stop: 02/24/18 13:01 Last Admin: 02/24/18 14:03 Dose: 125 mg Methylprednisolone Sodium Succinate (Solu-Medrol) 62.5 mg IVPUSH Q6H [facility] Stop: 02/25/18 00:01 Last Admin: 02/24/18 23:54 Dose: 62.5 mg Prednisone (Prednisone) 20 mg PO DAILY [facility] Last Admin: 02/25/18 08:16 Dose: 20 mg Sodium Chloride (Saline Flush) 10 ml FLUSH ONETIME ONE Stop: 02/24/18 12:32 Last Admin: 02/24/18 14:43 Dose: 10 ml - Exam Quality Assessment: Supplemental Oxygen General: Alert, Moderate Distress. No: Oriented, Cooperative Neck: Supple Lungs: Rhonchi (diffuse with inspiration and expiration). No: Normal Respiratory Effort (increased work of breathing ) Cardiovascular: Regular Rhythm, Tachycardia GI/Abdominal Exam: Soft, Non-Tender, No Distention Extremities: No Pedal Edema. No: Increased Warmth Skin: Warm, Dry Psy/Mental Status: Alert, Anxious - Problem List & Annotations (1) Aspiration pneumonia SNOMED Code(s): 763087744 Code(s): J69.0 - PNEUMONITIS DUE TO INHALATION OF FOOD AND VOMIT Status: Acute Current Visit: Yes Qualifiers: Aspiration pneumonia type: unspecified Laterality: bilateral Lung location: lower lobe of lung Qualified Code(s): J69.0 - Pneumonitis due to inhalation of food and vomit (2) Acute respiratory failure with hypoxia SNOMED Code(s): 29314561, 776080062 Code(s): J96.01 - ACUTE RESPIRATORY FAILURE WITH HYPOXIA Status: Acute Current Visit: Yes (3) Sepsis SNOMED Code(s): 29538673 Code(s): A41.9 - SEPSIS, UNSPECIFIED ORGANISM Status: Acute Priority: High Current Visit: Yes Qualifiers: Sepsis type: sepsis due to unspecified organism Qualified Code(s): A41.9 - Sepsis, unspecified organism (4) Cerebellar ataxia SNOMED Code(s): 08267988 Code(s): G11.9 - HEREDITARY ATAXIA, UNSPECIFIED Status: Chronic Priority : High Current Visit: No (5) Chronic ITP (idiopathic thrombocytopenia) SNOMED Code(s): 433476347 Code(s): D69.3 - IMMUNE THROMBOCYTOPENIC PURPURA Status: Chronic Priority : High Current Visit: No - Problem List Review Problem List Initiated/Reviewed/Updated: Yes - My Orders Last 24 Hours: My Active Orders 02/24/18 11:28 Resuscitation Status Routine 02/24/18 12:25 Patient Status [ADT] Routine Bedrest Bedside Commode [RC] ASDIRECTED Cardiac Monitoring [RC] Q6H Intake and Output [RC] QSHIFT Notify Provider Vital Signs [RC] ASDIRECTED Oxygen Therapy [RC] Q12H Pulse Oximetry [RC] CONTINUOUS RT Aerosol Therapy [RC] ASDIRECTED Vital Signs [RC] Q2HR Albuterol [Proventil Neb Soln] 2.5 mg NEB Q4H PRN Gabapentin [Neurontin] 200 mg PO WITHLUNCH LORazepam [Ativan] 0.5 - 1 mg IVPUSH Q4H PRN Ondansetron [Zofran ODT] 4 mg PO Q6H PRN Polyethylene Glycol 3350 [MiraLAX] 17 gm PO DAILY PRN Pressure Reduction Mattress [OM.PC] Routine Sequential Compression Device [OM.PC] Per Unit Routine VTE Pharmacological Contraindications [AST] Per Unit Routine 02/24/18 13:00 Levofloxacin/Dextrose 5%-Water [Levaquin in D5W 750 MG/150 ML] 750 mg Premix Bag 1 bag IV Q24H 02/24/18 14:00 Baclofen [Lioresal] 10 mg PO TID 02/24/18 15:00 Albuterol/Ipratropium [DuoNeb 3.0-0.5 MG/3 ML] 3 ml INH QIDRT 02/24/18 15:05 VL Duplex Lwr Ext Veins Comp [US] Routine 02/24/18 16:00 Acetaminophen [Tylenol] 650 mg PO QID Piperacillin/Tazobactam/Dext [Zosyn in Dextrose Iso-Osmotic 3.375 GM] 3.375 gm Premix Bag 1 bag IV Q6H 02/24/18 21:00 Gabapentin [Neurontin] 600 mg PO BID PHENobarbital 194.4 mg PO BEDTIME 02/25/18 05:11 Chest 1V Frontal [CR] AM 02/25/18 08:45 Magnesium Sulfate/Water [Magnesium Sulfate 2 GM in Water 50 ML] 2 gm Premix Bag 1 bag IV Q6H Potassium Chloride 20 MEQ,Lidocaine 1% 2 ML IN 100ML NS @ 50 MLS/HR Potassium Chloride 20 meq Lidocaine 1% [Xylocaine 1%] 2 ml Sodium Chloride 0.9% [Normal Saline] 100 ml IV Q2H 02/25/18 09:00 Citalopram [Celexa] 10 mg PO DAILY Propranolol [Inderal LA] 60 mg PO DAILY Sodium Chloride 0.9% [Normal Saline] 1,000 ml IV ASDIRECTED Vancomycin 1.5 gm Sodium Chloride 0.9% [Normal Saline] 250 ml IV ONETIME 02/25/18 11:00 Dextrose 5%-Normal Saline with KCl 20 mEq @ 125 mL/Hr (1000 mL) Dextrose 5%-0.9 % NaCl with KCl [D5 NS with 20 mEq KCl] 1,000 ml IV ASDIRECTED 02/25/18 14:00 methylPREDNISolone Sod Succ [Solu-MEDROL] 62.5 mg IVPUSH Q8H 02/25/18 21:00 Vancomycin 1.25 gm Sodium Chloride 0.9% [Normal Saline] 250 ml IV Q12H 02/25/18 Lunch NPO Now [Nothing per Oral Now Diet] [DIET] 02/26/18 05:00 CBC W/O DIFF,HEMOGRAM [HEME] Timed (1) COMPREHENSIVE METABOLIC PN,CMP [CHEM] Timed - Plan Plan:: ASSESSMENT AND PLAN - Probable aspiration pneumonia with acute hypoxic respiratory failure and sepsis - chest x-ray suggests increase in the right lower lung density and examination today much more consistent with aspiration with coarse upper respiratory sounds as well as developing crackles in the right lung base. CT scan yesterday did suggest the possibility of small subsegmental pulmonary emboli but lower extremity ultrasound was negative. I have elected not to initiate anticoagulation given his severe thrombocytopenia and distal if they even exist pulmonary emboli. Persistent fever overnight but finally seems to be trending down this morning. -Anabiotic coverage with vancomycin, Zosyn and levofloxacin -Resume IV steroids with nothing by mouth status -Supplement oxygen -Fever management -Nothing by mouth status Acute on chronic kidney injury - creatinine and BUN have risen since yesterday, likely related to sepsis and acute infection. -Fluid bolus and continuous infusion -Repeat labs in the morning Recurrent aspiration - patient had another episode this morning. I did discuss the options with his family again this morning. Options would include continuing the current soft diet and thickened liquids with the associated risk for aspiration versus placing a feeding tube to help reduce the risk of aspiration versus comfort-based approach with hospice. They would like some time to think about this. -Nothing by mouth Cerebellar ataxia - Chronic, progressive debilitating disease. Family not quite ready for hospice at this time. -Continue anti-spasmodics Chronic ITP - Chronic thrombocytopenia with significant decrease in his platelet levels even from admission. Fortunately there is no evidence for bleeding at this time. -Continue steroids Maintenance issues - - DVT prophylaxis - mechanical with risk of bleeding - GI prophylaxis - PPI - Nutrition - mechanical soft with nectar thick liquids - Gupta catheter - placed in the emergency room for strict intake and output monitoring in the setting of critical illness Disposition - anticipate discharge to senior living home after the hospital stay Michael Otoole M.D.
[2018-02-25] MEDS ORDERED: Citalopram 10 MG Tab PO SCH (09:00)
[2018-02-25] MEDS ORDERED: predniSONE 20 MG Tab PO SCH (09:00)
[2018-02-25] MEDS ORDERED: Propranolol 60 MG Cap.ER PO SCH (09:00)
[2018-02-25] MEDS ORDERED: Sodium Chloride 0.9% 1,000 ML IV SCH (09:00)
[2018-02-25] MEDS: Magnesium Sulfate/Water 2 GM in Premix Bag 1 BAG IV SCH ×2 (09:23→16:14)
[2018-02-25] MEDS ORDERED: Dextrose 5%-0.9% NaCl with KCl 1,000 ML IV SCH (11:00)
--- NOTE | 2018-02-25 11:03 | CR ---
Low lung volumes. Cardiomegaly. Pulmonary vasculature stable but upper limits of normal. There again is a hazy density within the medial right lung base which may indicate atelectasis or developing infi ltrate.
--- NOTE | 2018-02-25 11:50 | US ---
Ultrasound DVT study lower extremities. Findings: No evidence for DVT within the deep veins bilaterally.
[2018-02-25] MEDS: Levofloxacin/Dextrose 5%-Water 750 MG in Premix Bag 1 BAG IV SCH (12:25)
[2018-02-25] MEDS: Potassium Chloride 20 MEQ, Lidocaine 1% 2 ML in Sodium Chloride 0.9% 100 ML IV SCH ×2 (12:26→14:07)
[2018-02-25] MEDS: Acetaminophen 650 MG Supp RECTAL SCH ×2 (13:31→20:19)
[2018-02-25] MEDS ORDERED: methylPREDNISolone Sodium Succinate 125 MG/2 ML SDV IVPUSH SCH (14:00)
[2018-02-25 20:18] VITALS: BP 91/42
[2018-02-25] MEDS: PHENobarbital 32.4 MG Tab PO SCH (20:20)
--- NOTE | 2018-02-25 21:09 | PCM.DCSUM1 ---
Discharge Summary - Hospital Course Brief History: 57-year-old male with history of cerebellar ataxia and recurrent aspiration pneumonia who presented with fever and acute hypoxic respiratory failure. He was admitted for management of presumed recurrent aspiration pneumonia. - Discharge Data Discharge Date: 02/25/18 Discharge Disposition: 20 Preliminary Cause of *Q: Respiratory Failure (aspiration pneumonia) Condition: Critical - Discharge Diagnosis/Problem(s) (1) Aspiration pneumonia SNOMED Code(s): 885451701 ICD Code: J69.0 - PNEUMONITIS DUE TO INHALATION OF FOOD AND VOMIT Status: Acute Current Visit: Yes Qualifiers: Aspiration pneumonia type: unspecified Laterality: bilateral Lung location: lower lobe of lung Qualified Code(s): J69.0 - Pneumonitis due to inhalation of food and vomit (2) Acute respiratory failure with hypoxia SNOMED Code(s): 02876198, 480045175 ICD Code: J96.01 - ACUTE RESPIRATORY FAILURE WITH HYPOXIA Status: Acute Current Visit: Yes (3) Sepsis SNOMED Code(s): 10397320 ICD Code: A41.9 - SEPSIS, UNSPECIFIED ORGANISM Status: Acute Priority: High Current Visit: Yes Qualifiers: Sepsis type: sepsis due to unspecified organism Qualified Code(s): A41.9 - Sepsis, unspecified organism (4) Cerebellar ataxia SNOMED Code(s): 05522786 ICD Code: G11.9 - HEREDITARY ATAXIA, UNSPECIFIED Status: Chronic Priority : High Current Visit: No (5) Chronic ITP (idiopathic thrombocytopenia) SNOMED Code(s): 502424105 ICD Code: D69.3 - IMMUNE THROMBOCYTOPENIC PURPURA Status: Chronic Priority: High Current Visit: No - Patient Summary/Data Labs Pending at D/C: Final results of blood cultures which are negative at the time of his passing Hospital Course: Deon [facility] emergency room [facility] ambulance [facility] with fever and hypoxia. Workup in the emergency room was remarkable for a very high fever, hypoxic respiratory failure and evidence for sepsis with presumptive aspiration pneumonia. He required high flow oxygen. Broad-spectrum antibiotics were initiated after cultures were collected. He received IV fluid boluses. A CT pulmonary angiogram was performed with an very high d-dimer. This showed a developing right lower lung infiltrate. There was the possibility that he had small subsegmental pulmonary emboli but not definitive because the study was limited by motion artifact. This prompted a lower extremity ultrasound which did not show evidence for DVT. We elected not to start anticoagulation given his severe thrombocytopenia and low suspicion for pulmonary emboli given his high likelihood of aspiration pneumonia. He was admitted to the intensive care unit for further management. Respiratory status remained stable throughout the night but he did remain on 10 L of supplemental oxygen throughout most of the night. He remained tachycardic throughout the night and also was febrile much of the night with some high temperatures noted. The morning after admission his broad-spectrum antibiotic coverage was broadened to include vancomycin. He received additional fluid boluses and additional anti-pyretics. His fever did break the morning after admission. His heart rate came down into the normal range and he looked comfortable for the first time during hospital stay. He did have some difficulty swallowing yogurt which was being to him for breakfast so we elected to make him nothing by mouth other than a couple of his most essential medications. He did receive some deep nasotracheal suctioning after the aspiration event at breakfast time and responded very well with normalization of his saturations and significant improvement in his respiratory rate. D5 normal saline was initiated. Broad- spectrum antibiotics were continued. He had a relatively uneventful afternoon. This evening he was in the process of receiving his evening medications and had some difficulty swallowing the pudding with crush medications. He very quickly desaturated and developed bradycardia and tachypnea. Aggressive attempts were made to suction and his oxygen was turned up. Unfortunately his condition deteriorated very quickly. No attempts at resuscitation were made per his previously expressed wishes on the POLST. His parents were notified of his passing shortly thereafter. - Discharge Plan Home Medications: Home Meds Baclofen 10 mg PO TID 07/11/17 [History] Gabapentin [Neurontin] 600 mg PO BID 07/11/17 [History] PHENobarbital 194.4 mg PO BEDTIME 07/11/17 [History] Prednisone [IJD: predniSONE] 20 mg PO DAILY 07/11/17 [History] Propranolol [Inderal LA] 60 mg PO DAILY 07/11/17 [History] Acetaminophen [Tylenol] 650 mg PO Q4H PRN 12/31/17 [History] Albuterol/Ipratropium [DuoNeb 3.0-0.5 MG/3 ML] 3 ml INH Q4H PRN 12/31/17 [ History] Alum Hydrox/Mag Hydrox/Simeth [Maalox Advanced] 20 ml PO Q4H PRN 12/31/17 [ History] Magnesium Hydroxide [Milk of Magnesia] 30 ml PO DAILY PRN 12/31/17 [History] Triamcinolone Acetonide [Triamcinolone Acetonide 0.1% Crm] 1 applic TOP Q8H PRN 12/31/17 [History] guaiFENesin [Guaifenesin] 400 mg PO Q4H PRN 12/31/17 [History] Acetaminophen 650 mg PO QID 02/24/18 [History] Albuterol/Ipratropium [DuoNeb 3.0-0.5 MG/3 ML] 3 ml INH 5XDAY 02/24/18 [History] Citalopram Hydrobromide [Celexa] 10 mg PO DAILY 02/24/18 [History] Gabapentin [Neurontin] 200 mg PO WITHLUNCH 02/24/18 [History] LORazepam 1 mg PO Q4H PRN 02/24/18 [History] - Patient Data Vitals - Most Recent: Last Vital Signs Temp 38.3 C H 02/25/18 20:00 Pulse 94 02/25/18 20:00 Resp 30 H 02/25/18 20:00 BP 91/42 L 02/25/18 20:00 Pulse Ox 89 L 02/25/18 20:00 Weight - Most Recent: 83 kg I&O - Last 24 hours: Intake & Output 02/25/18 02/25/18 02/25/18 06:59 14:59 22:59 Intake Total 1350 760 Output Total 700 750 125 Balance 650 -750 635 Lab Results - Last 24 hrs: Laboratory Results - last 24 hr 02/25/18 02/25/18 Range/Units 05:00 05:00 WBC 8.2 (4.5-11.0) K/uL RBC 4.57 (4.30-5.90) M/uL Hgb 13.9 (12.0-15.0) g/dL Hct 44.7 (40.0-54.0) % MCV 98 (80-98) fL MCH 30 (27-31) pg MCHC 31 L (32-36) % Plt Count 19 L* (150-400) K/uL Sodium 150 H (140-148) mmol/L Potassium 3.4 L (3.6-5.2) mmol/L Chloride 113 H (100-108) mmol/L Carbon Dioxide 24 (21-32) mmol/L Anion Gap 16.4 H (5.0-14.0) mmol/L BUN 39 H D (7-18) mg/dL Creatinine 1.6 H (0.8-1.3) mg/dL Est Cr Clr Drug Dosing 54.07 mL/min Estimated GFR (MDRD) 45 L (>60) Glucose 138 H (74-106) mg/dL Calcium 7.0 L (8.5-10.1) mg/dL Magnesium 1.6 L (1.8-2.4) mg/dL ISABEL Results - Last 24 hrs: Microbiology 02/24/18 10:21 Aerobic Blood Culture - Preliminary Blood - Arm, Right NO GROWTH AFTER 1 DAY Anaerobic Blood Culture - Preliminary NO GROWTH AFTER 1 DAY 02/24/18 09:32 Aerobic Blood Culture - Preliminary Blood - Arm, Right NO GROWTH AFTER 1 DAY Anaerobic Blood Culture - Preliminary NO GROWTH AFTER 1 DAY Med Orders - Current: Current Medications Acetaminophen (Tylenol) 650 mg RECTAL Q6H [facility] Last Admin: 02/25/18 20:19 Dose: 650 mg Albuterol (Proventil Neb Soln) 2.5 mg NEB Q4H PRN PRN Reason: Shortness Of Breath/wheezing Albuterol/Ipratropium (Duoneb 3.0-0.5 Mg/3 Ml) 3 ml INH QIDRT [facility] Last Admin: 02/25/18 20:19 Dose: 3 ml Baclofen (Lioresal) 10 mg PO TID [facility] Last Admin: 02/25/18 20:20 Dose: 10 mg Gabapentin (Neurontin) 600 mg PO BID [facility] Last Admin: 02/25/18 20:19 Dose: 600 mg Levofloxacin/Dextrose 750 mg/ (Premix) 150 mls @ 100 mls/hr IV Q24H [facility] Last Admin: 02/25/18 12:25 Dose: 100 mls/hr Piperacillin/Tazobactam/ (Dextrose 3.375 gm/ Premix) 50 mls @ 100 mls/hr IV Q6H [facility] Last Admin: 02/25/18 16:14 Dose: 100 mls/hr Vancomycin HCl 1.25 gm/ Sodium (Chloride) 250 mls @ 150 mls/hr IV Q12H [facility] Last Admin: 02/25/18 20:19 Dose: 150 mls/hr Potassium Chloride/Dextrose/Sod Cl (D5 Ns With 20 Meq Kcl) 1,000 mls @ 125 mls/ hr IV ASDIRECTED [facility] Last Admin: 02/25/18 11:20 Dose: 125 mls/hr Lorazepam (Ativan) 0.5 - 1 mg IVPUSH Q4H PRN PRN Reason: Anxiety Last Admin: 02/25/18 02:06 Dose: 0.5 mg Methylprednisolone Sodium Succinate (Solu-Medrol) 62.5 mg IVPUSH Q8H [facility] Last Admin: 02/25/18 14:06 Dose: 62.5 mg Phenobarbital (Phenobarbital) 194.4 mg PO BEDTIME [facility] Last Admin: 02/25/18 20:20 Dose: 194.4 mg Propranolol HCl (Inderal La) 60 mg PO DAILY [facility] Last Admin: 02/25/18 08:16 Dose: 60 mg Discontinued Medications Acetaminophen (Tylenol) 650 mg RECTAL NOW ONE Stop: 02/24/18 09:09 Last Admin: 02/24/18 09:27 Dose: 650 mg Acetaminophen (Tylenol) 650 mg PO QID [facility] Last Admin: 02/25/18 10:16 Dose: Not Given Citalopram Hydrobromide (Celexa) 10 mg PO DAILY [facility] Last Admin: 02/25/18 08:16 Dose: 10 mg Gabapentin (Neurontin) 200 mg PO WITHLUNCH [facility] Last Admin: 02/24/18 14:12 Dose: 200 mg Lactated Ringer's (Ringers, Lactated) 1,000 mls @ 1,000 mls/hr IV BOLUS ONE Stop: 02/24/18 10:06 Last Admin: 02/24/18 09:26 Dose: 1,000 mls/hr Piperacillin/Tazobactam/ (Dextrose 4.5 gm/ Premix) 100 mls @ 200 mls/hr IV ONETIME ONE Stop: 02/24/18 11:29 Last Admin: 02/24/18 11:15 Dose: 200 mls/hr Lactated Ringer's (Ringers, Lactated) 1,000 mls @ 999 mls/hr IV BOLUS HERRERA Stop: 02/24/18 12:31 Last Admin: 02/24/18 11:35 Dose: 999 mls/hr Sodium Chloride (Normal Saline) 1,000 mls @ 125 mls/hr IV ASDIRECTED [facility] Last Admin: 02/25/18 03:43 Dose: 125 mls/hr Sodium Chloride (Normal Saline) 80 mls @ 3.5 mls/sec IV ONETIME ONE Stop: 02/24/18 12:32 Last Admin: 02/24/18 14:43 Dose: 3.5 mls/sec Sodium Chloride (Normal Saline) 1,000 mls @ 500 mls/hr IV ASDIRECTED ONE Stop: 02/24/18 19:14 Last Admin: 02/24/18 17:11 Dose: 500 mls/hr Vancomycin HCl 1.5 gm/ Sodium (Chloride) 250 mls @ 150 mls/hr IV ONETIME ONE Stop: 02/25/18 10:39 Last Admin: 02/25/18 08:59 Dose: 150 mls/hr Magnesium Sulfate 2 gm/ Premix 50 mls @ 12.5 mls/hr IV Q6H [facility] Stop: 02/25/18 19:59 Last Admin: 02/25/18 16:14 Dose: 12.5 mls/hr Potassium Chloride 20 meq/Lidocaine HCl 2 ml/ Sodium Chloride 112 mls @ 56 mls/ hr IV Q2H [facility] Stop: 02/25/18 15:59 Last Admin: 02/25/18 14:07 Dose: 56 mls/hr Sodium Chloride (Normal Saline) 1,000 mls @ 500 mls/hr IV ASDIRECTED [facility] Stop: 02/25/18 11:01 Last Admin: 02/25/18 09:21 Dose: 500 mls/hr Iopamidol (Isovue-370 (76%)) 100 ml IV . DIRECTED [facility] Stop: 02/24/18 13:30 Last Admin: 02/24/18 14:43 Dose: 100 ml Ketorolac Tromethamine (Toradol) 30 mg IVPUSH ONETIME ONE Stop: 02/24/18 19:25 Last Admin: 02/24/18 19:42 Dose: 30 mg Lorazepam (Ativan) 0.5 mg IVPUSH ONETIME ONE Stop: 02/24/18 10:59 Last Admin: 02/24/18 11:13 Dose: 0.5 mg Methylprednisolone Sodium Succinate (Solu-Medrol) 125 mg IVPUSH ONETIME ONE Stop: 02/24/18 13:01 Last Admin: 02/24/18 14:03 Dose: 125 mg Methylprednisolone Sodium Succinate (Solu-Medrol) 62.5 mg IVPUSH Q6H [facility] Stop: 02/25/18 00:01 Last Admin: 02/24/18 23:54 Dose: 62.5 mg Ondansetron HCl (Zofran Odt) 4 mg PO Q6H PRN PRN Reason: Nausea able to take PO Polyethylene Glycol (Miralax) 17 gm PO DAILY PRN PRN Reason: Constipation Prednisone (Prednisone) 20 mg PO DAILY [facility] Last Admin: 02/25/18 08:16 Dose: 20 mg Sodium Chloride (Saline Flush) 10 ml FLUSH ONETIME ONE Stop: 02/24/18 12:32 Last Admin: 02/24/18 14:43 Dose: 10 ml *Q Meaningful Use (DIS) - VTE *Q VTE Pharmacological Contraindications *Q: Thrombocytopenia
== END 2018-02-25 23:20 | disposition expired | DRG 871 ==
LOC: JP.ED 08:55 → JP.ICU 11:26
PROVIDERS: ADMIT Internal Medicine; ATTEND Internal Medicine
DX: A41.9 Sepsis, unspecified organism (principal); R50.9 Fever, unspecified; R09.02 Hypoxemia; J69.0 Pneumonitis due to inhalation of food and vomit; R06.02 Shortness of breath; J96.01 Acute respiratory failure with hypoxia; G11.4 Hereditary spastic paraplegia; D69.3 Immune thrombocytopenic purpura; N17.9 Acute kidney failure, unspecified; G11.9 Hereditary ataxia, unspecified; M62.838 Other muscle spasm; Z66 Do not resuscitate; N18.9 Chronic kidney disease, unspecified; R65.20 Severe sepsis without septic shock; R79.1 Abnormal coagulation profile; R00.1 Bradycardia, unspecified; H91.3 Deaf nonspeaking, not elsewhere classified; H91.90 Unspecified hearing loss, unspecified ear; R56.9 Unspecified convulsions; R00.0 Tachycardia, unspecified; R06.03 Acute respiratory distress; R06.82 Tachypnea, not elsewhere classified; G98.8 Other disorders of nervous system; R25.1 Tremor, unspecified; R62.50 Unspecified lack of expected normal physiological development in childhood; L21.9 Seborrheic dermatitis, unspecified; F41.9 Anxiety disorder, unspecified; R13.10 Dysphagia, unspecified; S62.231D Other displaced fracture of base of first metacarpal bone, right hand, subsequent encounter for fracture with routine healing; X58.XXXD Exposure to other specified factors, subsequent encounter; Z90.49 Acquired absence of other specified parts of digestive tract; Z87.01 Personal history of pneumonia (recurrent); Z79.52 Long term (current) use of systemic steroids; Z79.899 Other long term (current) drug therapy
CPT/HCPCS: 36415; 51702; 71045 ×2; 80048; 81001; 83605; 85027; 85379; 87040 ×2; 96361; 96374; 96375; 99285; A9270; J2060; J2543; J7120; 71275; 71275-26; 83735; 93970; 93970-26; 94640; J1885; J1956; J2930; J3370; J3475; J3480; J7030; J7040; J7050; J7620; Q9967